=== PATIENT | female | born 1960 | race Two or more races ===

== ENCOUNTER 2020-03-22 12:26 | Outpatient (REF) | payer OTHER, SELFPAY ==
[2020-03-22 12:58] LABS: MANUAL DIFF FLAG NO
[2020-03-22 13:04] LABS: Basophils Percent Auto 0.5 % (0-2); Eosinophils Absolute Auto 0.2 X10*3/uL (0.0-0.4); Eosinophils Percent Auto 2.9 % (0-4); Hematocrit 34.9 % (37-47); Hemoglobin 10.7 g/dl (12.0-16.0); Imm Gran Abs Auto 0.03 X10*3/uL (0.00-0.03); Imm Gran Pct Auto 0.4 % (0.0-0.4); Lymphocytes Absolute Auto 2.2 X10*3/uL (1.2-4.9); Lymphocytes Percent Auto 25.9 % (20-40); Mean Corpuscular HGB Conc 30.7 g/dl (31.0-35.0); Mean Corpuscular Hemoglobin 24.6 pg (27.0-33.0); Mean Corpuscular Volume 80.2 fL (80-98); Mean Platelet Volume 10.3 fL (9.4-12.3); Monocytes Absolute Auto 0.5 X10*3/uL (0.1-1.2); Monocytes Percent Auto 5.4 % (2-11); Neutrophils Absolute Auto 5.4 X10*3/uL (2.0-8.3); Neutrophils Percent Auto 64.9 % (45-73); Platelet Count 362 X10*3/uL (160-400); Red Blood Count 4.35 X10*6/uL (4.20-5.50); Red Cell Distribution Width 14.4 % (11.0-16.0); White Blood Count 8.3 X10*3/uL (4.8-10.8)
[2020-03-22 14:03] LABS: Alanine Aminotransferase 12 U/L (0-31); Albumin Level 3.7 g/dL (3.5-5.0); Alkaline Phosphatase 115 U/L (39-117); Anion Gap 16 (12-20); Aspartate Amino Transferase 18 U/L (5-31); Blood Urea Nitrogen 52 mg/dL (9-16); Calcium 9.2 mg/dL (8.4-10.2); Carbon Dioxide 28 mmol/L (22-29); Chloride 97 mmol/L (96-108); Estimated Glomerular Filt Rate 28; Glucose Random 329 mg/dL (60-115); Sodium 136 mmol/L (135-145); Total Protein 7.1 g/dL (6.5-8.0)
[2020-03-22 14:12] LABS: Bilirubin Total 0.2 mg/dL (0.0-1.0)
[2020-03-22 14:14] LABS: Free T4 (Free Thyroxine) 0.94 ng/dL (0.71-1.85); Thyroid Stimulating Hormone 1.67 uIU/mL (0.32-4.0)
== END 2020-03-22 12:27 | disposition home or self-care (01) ==
LOC: HO.LAB 12:26
PROVIDERS: PCP Internal Medicine Medical Oncology; Visit Provider Internal Medicine Medical Oncology
DX: F32.9 Major depressive disorder, single episode, unspecified (principal); I51.9 Heart disease, unspecified; K21.9 Gastro-esophageal reflux disease without esophagitis; I10 Essential (primary) hypertension; R63.4 Abnormal weight loss
CPT/HCPCS: 36415; 80053; 84134; 84439; 84443; 85025

== ENCOUNTER 2020-04-17 08:49 | Outpatient (REF) | payer OTHER, SELFPAY ==
--- NOTE | 2020-04-17 08:54 | FL_ITS ---
EXAMINATION: XR UPPER GI AIR-CONTRAST SERIES CLINICAL INFORMATION: Abnormal weight loss, GERD. COMPARISON: None TECHNIQUE: Routine upper GI air-contrast study was performed. FINDINGS: Following oral administration of thick barium and effervescent granules, there is normal propagation of bolus from the oral cavity through the esophagus into the stomach without any evidence of obstruction, narrowing or stricture. On placing patient supine and prone lying, the course, caliber and peristalsis of the stomach, duodenal bulb and the sweep are normal. There is mild gastroesophageal reflux without hiatal hernia. The mucosal pattern of the stomach, duodenal bulb and the sweep is normal. There are median sternotomy sutures and anchors from previous 2 heart surgeries. FLUOROSCOPY TIME: 1.9 minutes DOSE AREA PRODUCT: 25.435 uGy-m2 (microgray-meter squared) FL/FL upper GI series IMPRESSION: Mild gastroesophageal reflux without hiatal hernia. No focal mass or ulceration seen in the esophagus, stomach or the duodenum.
== END 2020-04-17 08:50 | disposition home or self-care (01) ==
LOC: HO.XRAY 08:49
PROVIDERS: Visit Provider Internal Medicine Medical Oncology
DX: K21.9 Gastro-esophageal reflux disease without esophagitis (principal); R63.4 Abnormal weight loss
CPT/HCPCS: 74240

== ENCOUNTER → 2020-08-07 11:14 | Outpatient (BNVA) | payer OTHER, SELFPAY | PROVIDERS: PCP Internal Medicine Medical Oncology; Visit Provider Nurse Practitioner Gerontology | DX: E11.42 Type 2 diabetes mellitus with diabetic polyneuropathy (principal); E11.22 Type 2 diabetes mellitus with diabetic chronic kidney disease; I12.9 Hypertensive chronic kidney disease with stage 1 through stage 4 chronic kidney disease, or unspecified chronic kidney disease; N18.9 Chronic kidney disease, unspecified; Z79.4 Long term (current) use of insulin; E78.5 Hyperlipidemia, unspecified | CPT/HCPCS: 82947; 99212 ==

== ENCOUNTER → 2021-01-05 11:33 | Outpatient (BNVA) | payer OTHER, SELFPAY | PROVIDERS: PCP Internal Medicine Medical Oncology; Visit Provider Nurse Practitioner Gerontology | DX: E11.42 Type 2 diabetes mellitus with diabetic polyneuropathy (principal); E11.65 Type 2 diabetes mellitus with hyperglycemia; E11.22 Type 2 diabetes mellitus with diabetic chronic kidney disease; I12.9 Hypertensive chronic kidney disease with stage 1 through stage 4 chronic kidney disease, or unspecified chronic kidney disease; N18.9 Chronic kidney disease, unspecified; E78.00 Pure hypercholesterolemia, unspecified; Z79.4 Long term (current) use of insulin | CPT/HCPCS: 82947; 83036; 99212 ==

== ENCOUNTER → 2021-02-14 10:18 | Outpatient (BNVA) | payer OTHER, SELFPAY | PROVIDERS: PCP Internal Medicine Medical Oncology; Visit Provider Registered Nurse Diabetes Educator | DX: E11.42 Type 2 diabetes mellitus with diabetic polyneuropathy (principal); Z79.4 Long term (current) use of insulin | CPT/HCPCS: 99211 ==

== ENCOUNTER 2021-02-19 10:04 | Outpatient (REF) | payer OTHER, SELFPAY ==
[2021-02-19 11:34] LABS: Alanine Aminotransferase 27 U/L (0-31); Albumin Level 3.9 g/dL (3.5-5.0); Alkaline Phosphatase 139 U/L (39-117); Anion Gap 12 (12-20); Aspartate Amino Transferase 24 U/L (5-31); Bilirubin Total 0.3 mg/dL (0.0-1.0); Blood Urea Nitrogen 19 mg/dL (9-16); Calcium 9.3 mg/dL (8.4-10.2); Carbon Dioxide 25 mmol/L (22-29); Chloride 107 mmol/L (96-108); Cholesterol 152 mg/dL; Estimated Glomerular Filt Rate > 60; Glucose Fasting 126 mg/dL (60-99); HDL Cholesterol 40 mg/dL; LDL Cholesterol Calculated 69 mg/dl; Potassium 4.8 mmol/L (3.3-5.1); Sodium 139 mmol/L (135-145); Total Protein 7.1 g/dL (6.5-8.0); Triglycerides 216 mg/dL
[2021-02-19 12:58] LABS: Creatinine Urine 94.23 mg/dL
[2021-02-20 07:41] LABS: LDL Cholesterol Direct 70 mg/dL (<100)
== END 2021-02-19 10:05 | disposition home or self-care (01) ==
LOC: HO.LAB 10:04
PROVIDERS: Absent Provider Nurse Practitioner Gerontology; PCP Internal Medicine Medical Oncology; Visit Provider Internal Medicine Medical Oncology
DX: E11.65 Type 2 diabetes mellitus with hyperglycemia (principal); E78.5 Hyperlipidemia, unspecified; Z79.4 Long term (current) use of insulin
CPT/HCPCS: 36415; 80053; 80061; 82043; 83721

== ENCOUNTER 2021-04-18 09:20 | Outpatient (REF) | payer OTHER, SELFPAY ==
[2021-04-21 08:51] LABS: HPV mRNA E6/E7 rflx Not Detected (Not Detected)
== END 2021-04-18 09:21 | disposition home or self-care (01) ==
LOC: HO.LAB 09:20
PROVIDERS: PCP Internal Medicine Medical Oncology; Visit Provider Obstetrics & Gynecology
DX: Z01.411 Encounter for gynecological examination (general) (routine) with abnormal findings (principal); Z11.51 Encounter for screening for human papillomavirus (HPV); N84.1 Polyp of cervix uteri
CPT/HCPCS: 57500; 87624; 88142; 88305

== ENCOUNTER 2021-06-28 09:50 | Outpatient (REF) | payer OTHER, SELFPAY ==
--- NOTE | ~2021-06-28 | XR_ITS ---
EXAMINATION: XR SHOULDER, LEFT CLINICAL INFORMATION: Acute pain in the left shoulder COMPARISON: None TECHNIQUE: AP external rotation, Grashey, scapular Y, and axillary views of the left shoulder. FINDINGS: The bones and soft tissues are normal. No fracture. Glenohumeral and acromioclavicular alignment is anatomic with normal joint space. No abnormal soft tissue calcifications. XR/XR shoulder LT min 2V IMPRESSION: Unremarkable left shoulder.
[2021-06-28 10:11] LABS: MANUAL DIFF FLAG NO
[2021-06-28 10:22] LABS: Basophils Percent Auto 0.3 % (0-2); Eosinophils Absolute Auto 0.1 X10*3/uL (0.0-0.4); Eosinophils Percent Auto 1.3 % (0-4); Hematocrit 40.6 % (37.0-47.0); Hemoglobin 12.7 g/dl (12.0-16.0); Imm Gran Abs Auto 0.04 X10*3/uL (0.00-0.03); Imm Gran Pct Auto 0.4 % (0.0-0.4); Lymphocytes Absolute Auto 1.9 X10*3/uL (1.2-4.9); Lymphocytes Percent Auto 19.3 % (20-40); Mean Corpuscular HGB Conc 31.3 g/dl (31.0-35.0); Mean Corpuscular Volume 86.2 fL (80.0-98.0); Mean Platelet Volume 10.5 fL (9.4-12.3); Monocytes Absolute Auto 0.5 X10*3/uL (0.1-1.2); Monocytes Percent Auto 5.5 % (2-11); Neutrophils Absolute Auto 7.2 x10*3/uL (2.0-8.3); Neutrophils Percent Auto 73.2 % (45-73); Platelet Count 262 X10*3/uL (160-400); Red Blood Count 4.71 X10*6/uL (4.20-5.50); Red Cell Distribution Width 14.1 % (11.0-16.0); White Blood Count 9.9 X10*3/uL (4.8-10.8)
[2021-06-28 10:59] LABS: Alanine Aminotransferase 24 U/L (0-31); Albumin Level 3.9 g/dL (3.5-5.0); Alkaline Phosphatase 136 U/L (39-117); Anion Gap 13 (12-20); Aspartate Amino Transferase 23 U/L (5-31); Bilirubin Total 0.3 mg/dL (0.0-1.0); Blood Urea Nitrogen 27 mg/dL (9-16); Calcium 9.7 mg/dL (8.4-10.2); Carbon Dioxide 27 mmol/L (22-29); Chloride 106 mmol/L (96-108); Cholesterol 166 mg/dL; Estimated Glomerular Filt Rate 50; Glucose Fasting 122 mg/dL (60-99); HDL Cholesterol 45 mg/dL; LDL Cholesterol Calculated 86 mg/dl; Potassium 5.1 mmol/L (3.3-5.1); Sodium 141 mmol/L (135-145); Total Protein 7.2 g/dL (6.5-8.0); Triglycerides 176 mg/dL
== END 2021-06-28 09:51 | disposition home or self-care (01) ==
LOC: HO.LAB 09:50
PROVIDERS: PCP Internal Medicine Medical Oncology; Visit Provider Internal Medicine Medical Oncology
DX: M25.512 Pain in left shoulder (principal); E78.5 Hyperlipidemia, unspecified; E11.9 Type 2 diabetes mellitus without complications
CPT/HCPCS: 36415; 73030; 80053; 80061; 85025

== ENCOUNTER 2021-07-16 12:43 | Outpatient (REF) | payer OTHER, SELFPAY ==
[2021-07-16 12:59] LABS: MANUAL DIFF FLAG NO
[2021-07-16 13:39] LABS: Appearance Urine CLOUDY; Color Urine STRAW; Glucose Urine UA >=1000 MG/DL (NEG); Leukocyte Esterase Urine 1+ (NEG); Nitrite Urine NEG (NEG); PH 5.5 (5.0-8.0); Urine Blood 2+ (NEG); Urine Ketones NEG (NEG); Urine Protein 3+ MG/DL (NEG-TRACE)
[2021-07-16 13:40] LABS: Basophils Percent Auto 0.2 % (0-2); Eosinophils Absolute Auto 0.2 X10*3/uL (0.0-0.4); Hematocrit 39.6 % (37.0-47.0); Hemoglobin 12.2 g/dl (12.0-16.0); Imm Gran Abs Auto 0.03 X10*3/uL (0.00-0.03); Imm Gran Pct Auto 0.3 % (0.0-0.4); Lymphocytes Absolute Auto 1.5 X10*3/uL (1.2-4.9); Lymphocytes Percent Auto 16.1 % (20-40); Mean Corpuscular HGB Conc 30.8 g/dl (31.0-35.0); Mean Corpuscular Hemoglobin 26.5 pg (27.0-33.0); Mean Corpuscular Volume 85.9 fL (80.0-98.0); Mean Platelet Volume 11.1 fL (9.4-12.3); Monocytes Absolute Auto 0.5 X10*3/uL (0.1-1.2); Monocytes Percent Auto 4.7 % (2-11); Neutrophils Absolute Auto 7.3 x10*3/uL (2.0-8.3); Neutrophils Percent Auto 76.7 % (45-73); Platelet Count 262 X10*3/uL (160-400); Red Blood Count 4.61 X10*6/uL (4.20-5.50); Red Cell Distribution Width 14.1 % (11.0-16.0); White Blood Count 9.6 X10*3/uL (4.8-10.8)
[2021-07-16 13:52] LABS: Bacteria Urine 1+ /LPF; WBC Urine TNTC /HPF (0-4)
[2021-07-16 14:05] LABS: Creatinine Urine 68.94 mg/dL
[2021-07-16 14:07] LABS: Albumin Level 3.8 g/dL (3.5-5.0); Anion Gap 13 (12-20); Blood Urea Nitrogen 21 mg/dL (9-16); Calcium 9.4 mg/dL (8.4-10.2); Carbon Dioxide 28 mmol/L (22-29); Chloride 104 mmol/L (96-108); Estimated Glomerular Filt Rate 47; Magnesium 2.2 mg/dL (1.6-2.6); Potassium 4.7 mmol/L (3.3-5.1); Sodium 140 mmol/L (135-145)
[2021-07-16 14:30] LABS: Vitamin D 25-OH Total 12.3 ng/mL (>30)
[2021-07-16 14:41] LABS: Protein/Creatinine Ratio, Ur 5.43 (<0.2); Total Protein Urine Random 374 mg/dL (<12)
[2021-07-17 13:27] LABS: Calcium (PTHI) 8.9 mg/dL (8.6-10.4); PTHI 159 pg/mL (16-77)
== END 2021-07-16 12:44 | disposition home or self-care (01) ==
LOC: HO.LAB 12:43
PROVIDERS: PCP Internal Medicine Medical Oncology; Visit Provider Internal Medicine Nephrology
DX: E11.22 Type 2 diabetes mellitus with diabetic chronic kidney disease (principal); N18.31 Chronic kidney disease, stage 3a; N25.0 Renal osteodystrophy
CPT/HCPCS: 36415; 80051; 81001; 82040; 82043; 82306; 82310; 82565; 83735; 83970; 84100; 84156; 84520; 85025; 87086; 87088; 87186

== ENCOUNTER 2021-10-04 09:25 | Outpatient (REF) | payer OTHER, SELFPAY ==
--- NOTE | ~2021-10-04 | XR_ITS ---
EXAMINATION: XR LUMBOSACRAL SPINE CLINICAL INFORMATION: Low back pain. COMPARISON: 05/31/2018 lumbar spine radiographs. TECHNIQUE: Three views of the lumbosacral spine. FINDINGS: There is normal lumbar lordosis and spinal alignment. Moderate degenerative disc disease is seen at L4-L5 with disc space narrowing and moderate marginal osteophyte formation on the left. There is no acute fracture. The soft tissues are unremarkable. XR/XR lumbar spine 2-3V IMPRESSION: L4-L5 moderate degenerative disc disease without significant change. No acute abnormality.
[2021-10-04 09:42] LABS: MANUAL DIFF FLAG NO
[2021-10-04 10:19] LABS: Basophils Percent Auto 0.3 % (0-2); Eosinophils Absolute Auto 0.2 X10*3/uL (0.0-0.4); Eosinophils Percent Auto 2.5 % (0-4); Hematocrit 40.8 % (37.0-47.0); Hemoglobin 12.8 g/dl (12.0-16.0); Imm Gran Abs Auto 0.04 X10*3/uL (0.00-0.03); Imm Gran Pct Auto 0.4 % (0.0-0.4); Lymphocytes Absolute Auto 2.2 X10*3/uL (1.2-4.9); Lymphocytes Percent Auto 24.3 % (20-40); Mean Corpuscular HGB Conc 31.4 g/dl (31.0-35.0); Mean Corpuscular Hemoglobin 26.7 pg (27.0-33.0); Mean Corpuscular Volume 85.2 fL (80.0-98.0); Mean Platelet Volume 10.2 fL (9.4-12.3); Monocytes Absolute Auto 0.5 X10*3/uL (0.1-1.2); Monocytes Percent Auto 5.7 % (2-11); Neutrophils Absolute Auto 5.9 x10*3/uL (2.0-8.3); Neutrophils Percent Auto 66.8 % (45-73); Platelet Count 266 X10*3/uL (160-400); Red Blood Count 4.79 X10*6/uL (4.20-5.50); Red Cell Distribution Width 13.5 % (11.0-16.0); White Blood Count 8.9 X10*3/uL (4.8-10.8)
[2021-10-04 10:40] LABS: Alanine Aminotransferase 24 U/L (0-31); Albumin Level 3.7 g/dL (3.5-5.0); Alkaline Phosphatase 182 U/L (39-117); Anion Gap 11 (12-20); Aspartate Amino Transferase 19 U/L (5-31); Bilirubin Total 0.3 mg/dL (0.0-1.0); Blood Urea Nitrogen 31 mg/dL (9-16); Calcium 9.1 mg/dL (8.4-10.2); Carbon Dioxide 26 mmol/L (22-29); Chloride 103 mmol/L (96-108); Cholesterol 171 mg/dL; Estimated Glomerular Filt Rate 48; Glucose Random 230 mg/dL (60-115); HDL Cholesterol 43 mg/dL; LDL Cholesterol Calculated 84 mg/dl; Potassium 4.6 mmol/L (3.3-5.1); Sodium 135 mmol/L (135-145); Total Protein 7.2 g/dL (6.5-8.0); Triglycerides 222 mg/dL
== END 2021-10-04 09:26 | disposition home or self-care (01) ==
LOC: HO.LAB 09:25
PROVIDERS: PCP Internal Medicine Medical Oncology; Visit Provider Internal Medicine Medical Oncology
DX: M54.50 Low back pain, unspecified (principal); E78.5 Hyperlipidemia, unspecified; I21.11 ST elevation (STEMI) myocardial infarction involving right coronary artery; I10 Essential (primary) hypertension; K21.9 Gastro-esophageal reflux disease without esophagitis
CPT/HCPCS: 36415; 72100; 80053; 80061; 85025

== ENCOUNTER 2021-11-19 10:12 | Outpatient (REF) | payer OTHER, SELFPAY ==
[2021-11-19 10:37] LABS: MANUAL DIFF FLAG NO
[2021-11-19 11:42] LABS: Basophils Percent Auto 0.4 % (0-2); Eosinophils Absolute Auto 0.3 X10*3/uL (0.0-0.4); Eosinophils Percent Auto 2.6 % (0-4); Hematocrit 39.3 % (37.0-47.0); Hemoglobin 12.5 g/dl (12.0-16.0); Imm Gran Abs Auto 0.04 X10*3/uL (0.00-0.03); Imm Gran Pct Auto 0.4 % (0.0-0.4); Lymphocytes Absolute Auto 2.3 X10*3/uL (1.2-4.9); Lymphocytes Percent Auto 23.8 % (20-40); Mean Corpuscular HGB Conc 31.8 g/dl (31.0-35.0); Mean Corpuscular Hemoglobin 26.9 pg (27.0-33.0); Mean Corpuscular Volume 84.7 fL (80.0-98.0); Mean Platelet Volume 10.9 fL (9.4-12.3); Monocytes Absolute Auto 0.6 X10*3/uL (0.1-1.2); Monocytes Percent Auto 6.2 % (2-11); Neutrophils Absolute Auto 6.3 x10*3/uL (2.0-8.3); Neutrophils Percent Auto 66.6 % (45-73); Platelet Count 276 X10*3/uL (160-400); Red Blood Count 4.64 X10*6/uL (4.20-5.50); Red Cell Distribution Width 13.7 % (11.0-16.0); White Blood Count 9.5 X10*3/uL (4.8-10.8)
[2021-11-19 11:59] LABS: Anion Gap 15 (12-20); Blood Urea Nitrogen 28 mg/dL (9-16); Carbon Dioxide 20 mmol/L (22-29); Chloride 108 mmol/L (96-108); Estimated Glomerular Filt Rate 55; Potassium 4.4 mmol/L (3.3-5.1); Sodium 139 mmol/L (135-145)
[2021-11-19 12:10] LABS: Appearance Urine CLEAR; Color Urine STRAW; Glucose Urine UA >=1000 MG/DL (NEG); Leukocyte Esterase Urine NEG (NEG); Nitrite Urine NEG (NEG); PH 5.5 (5.0-8.0); Urine Blood 1+ (NEG); Urine Ketones NEG (NEG); Urine Protein 2+ MG/DL (NEG-TRACE)
[2021-11-19 12:11] LABS: HBc Num1 0.03 S/CO (0.00-0.79); HBsAGNum1 0.22 S/CO (0.00-0.99); Hepatitis B Core Antibody Nonreactive (Nonreactive); Hepatitis B Surface Antigen Negative (Negative); ~HepC Num1 0.25 S/CO (0.00-0.79); ~Hepatitis B Surface Antibody NONREACTIVE (Nonreactive); ~Hepatitis C Antibody Nonreactive (Nonreactive)
[2021-11-19 12:42] LABS: Protein/Creatinine Ratio, Ur 4.33 (<0.2); Total Protein Urine Random 186 mg/dL (<12)
[2021-11-19 13:11] LABS: Bacteria Urine TRACE /LPF; Squamous Epithelial Cell Urine TRACE /LPF
[2021-11-19 13:12] LABS: RBC Urine 0-2 /HPF (0); WBC Urine 0 /HPF (0-4)
[2021-11-20 13:51] LABS: Complement C3 134 mg/dL (83-193)
[2021-11-22 16:01] LABS: Anti Nuclear Antibody Screen POSITIVE (NEGATIVE); Anti Nuclear Antibody Titer 1:40 titer
[2021-11-22 22:46] LABS: Prot Elec - Albumin 3.8 g/dL (3.8-4.8); Prot Elec - Alpha1 0.3 g/dL (0.2-0.3); Prot Elec - Alpha2 0.9 g/dL (0.5-0.9); Prot Elec - Beta 1 0.5 g/dL (0.4-0.6); Prot Elec - Beta 2 0.5 g/dL (0.2-0.5); Prot Elec - Gamma 1.3 g/dL (0.8-1.7); Prot Elec - Total Protein 7.3 g/dL (6.1-8.1)
[2021-11-26 15:06] LABS: Kappa, Serum 336 mg/dL (176-443); Kappa/Lambda Ratio, Serum 1.37 (1.29-2.55); Lambda, Serum 246 mg/dL (91-240)
== END 2021-11-19 10:13 | disposition home or self-care (01) ==
LOC: HO.LAB 10:12
PROVIDERS: PCP Internal Medicine Medical Oncology; Visit Provider Internal Medicine Nephrology
DX: I12.9 Hypertensive chronic kidney disease with stage 1 through stage 4 chronic kidney disease, or unspecified chronic kidney disease (principal); N18.31 Chronic kidney disease, stage 3a; E11.22 Type 2 diabetes mellitus with diabetic chronic kidney disease; N25.0 Renal osteodystrophy; R80.1 Persistent proteinuria, unspecified
CPT/HCPCS: 36415; 80051; 81001; 82043; 82310; 82565; 83883; 84156; 84165; 84520; 85025; 86038; 86039; 86160; 86704; 86706; 86803; 87340

== ENCOUNTER 2021-11-29 13:44 | Outpatient (REF) | payer OTHER, SELFPAY ==
--- NOTE | ~2021-11-29 | MM_ITS ---
EXAMINATION: BONE DENSITOMETRY CLINICAL INDICATION: Osteoporosis. COMPARISON: None (current study represents initial baseline exam). TECHNIQUE: Using a [employer] DXA System (software version: 13.1) manufactured by [employer], dual-energy x-ray absorptiometry was performed of the lumbar spine and left hip. The images are of good technical quality. Summary results are attached. FINDINGS: AP SPINE L1-L4: BMD 0.999 g/cm2, Z-score -0.9, T-score -1.5, osteopenia. LEFT FEMUR, NECK: BMD 0.588 g/cm2, Z-score -2.4, T-score -3.2, osteoporosis. LEFT FEMUR, TOTAL: BMD 0.750 g/cm2, Z-score -1.5, T-score -2.0, osteopenia. IDENTIFIED RISK FACTORS: Menopause, family history (parent hip fracture), secondary osteoporosis. HISTORY OF FRACTURE: None listed. MEDICATIONS: Vitamin D. MM/XR DEXA axial skeleton IMPRESSION: 1. DIAGNOSIS: Osteoporosis based on the lowest T-score value of -3.2 in the femoral neck applying World Health Organization criteria. 2. 10-YEAR FRACTURE RISK PREDICTION, FRAX: According to the guidelines, FRAX calculation should only be performed on patients in the osteopenia bone density category. Therefore, FRAX was not performed on this patient. 3. Treatment Recommendations: NOF guidelines recommend consideration for treatment in postmenopausal women and men age 50 and older presenting with the following: -A hip or vertebral (clinical or morphometric) fracture. -T-score less than or equal to -2.5 at the femoral neck or spine after appropriate evaluation to exclude secondary causes. -Low bone mass at the hip or spine and a 10-year fracture probability by FRAX of greater than or equal to 3% for hip fracture or greater than or equal to 20% for major osteoporotic fracture based on the [place] adapted WHO algorithm. 4. Other Recommendations: All treatment decisions require clinical judgment and consideration of individual patient factors, including patient preferences, comorbidities, previous drug use, risk factors not captured in the FRAX model (e.g. frailty, falls, vitamin D deficiency, increased bone turnover, interval significant decline in bone density) and possible under or overestimation of fracture risk by FRAX. Additional medical evaluation for secondary cause of low bone mineral density may be appropriate. FUTURE SCAN RECOMMENDATION: People with diagnosed cases of osteoporosis or at high risk for fracture should have regular bone mineral density tests. For patients eligible for Medicare, routine testing is allowed once every 2 years. The testing frequency can be increased to one year for patients who have rapidly progressing disease, those who are receiving or discontinuing medical therapy to restore bone mass, or have additional risk factors.
--- NOTE | ~2021-11-29 | MM_ITS ---
EXAMINATION: MM SCREENING DIGITAL BREAST TOMOSYNTHESIS, BILATERAL CLINICAL INFORMATION: Screening. Asymptomatic. The lifetime risk of breast cancer based on the Tyrer-Cuzick Model is 13%. COMPARISON: Mammography: 10/09/2018, 09/20/2017, 04/17/2016 TECHNIQUE: Digital breast tomosynthesis is performed in both the craniocaudal and mediolateral oblique views along with computer-aided detection (CAD). Synthesized 2D images are generated from the tomosynthesis. Additional left MLO view is provided. FINDINGS: The breasts are heterogeneously dense, which may obscure small masses (ACR BI-RADS breast composition Category c). Parenchymal pattern is similar to prior studies. There is no developing density or architectural abnormality. There are scattered bilateral benign round, rim, and vascular calcifications again noted. Pacemaker generator overlies and partly obscures posterior left axilla on MLO view. MM/MM tomosynthesis screening BI IMPRESSION: No mammographic evidence of malignancy. ASSESSMENT: BI-RADS 2: Benign RECOMMENDATION: Routine annual mammography screening. This patient's information was entered into a reminder system with a target due date for their next mammogram.
== END 2021-11-29 13:45 | disposition home or self-care (01) ==
LOC: HO.MAMMO 13:44
PROVIDERS: PCP Internal Medicine Medical Oncology; Visit Provider Internal Medicine Medical Oncology
DX: Z12.31 Encounter for screening mammogram for malignant neoplasm of breast (principal); Z13.820 Encounter for screening for osteoporosis; Z78.0 Asymptomatic menopausal state
CPT/HCPCS: 77063; 77067; 77080

== ENCOUNTER → 2022-05-24 10:31 | Outpatient (BNVA) | payer OTHER, SELFPAY | PROVIDERS: PCP Internal Medicine Medical Oncology; Visit Provider Internal Medicine Endocrinology, Diabetes & Metabolism | DX: E11.42 Type 2 diabetes mellitus with diabetic polyneuropathy (principal); E11.22 Type 2 diabetes mellitus with diabetic chronic kidney disease; I12.9 Hypertensive chronic kidney disease with stage 1 through stage 4 chronic kidney disease, or unspecified chronic kidney disease; N18.9 Chronic kidney disease, unspecified; Z79.4 Long term (current) use of insulin | CPT/HCPCS: 82947; 83036; 99212 ==

== ENCOUNTER 2022-12-10 10:01 | Outpatient (AMB) | payer OTHER, SELFPAY ==
--- NOTE | 2022-12-10 10:10 | MHC.OFFVIS ---
Intake Vital Signs 12/10/22 10:11 Height 5 ft 2 in Weight 167 lb 8.821 oz BMI 30.6 BP 112/58 L Blood Pressure Location Lt brachial Position Sitting Pulse 65 Pulse Source Pulse Oximeter Intake Visit Reasons: DM Intake Note: Patient present today to follow up on Type 2 Diabetes Mellitus. Last Diabetic Eye exam: 4 years ago Last Podiatry Visit: None Random Glucose: 203 mg/dl HgA1C: DUE Legal Consultant Required: No Accompanied by: Self / Same As Patient Allergies iodine [IODINE] Allergy (Intermediate, Verified 12/10/22 10:15) PT UNSURE latex [LATEX] Allergy (Intermediate, Verified 12/10/22 10:15) RASH ketorolac Allergy (Unknown, Verified 12/10/22 10:15) Unknown oxycodone Allergy (Unknown, Verified 12/10/22 10:15) Unknown From TORADOL Allergy (Unknown, Uncoded 05/24/22 10:39) STOMACH UPSET Medication List - Last Reviewed 12/10/22 by Krystyna nAdrade albuterol sulfate 90 mcg/actuation inhalation alcohol swabs 0 pad topical aspirin 1 tab PO DAILY atorvastatin 80 mg PO DAILY blood sugar diagnostic (FreeStyle Lite Strips) As directed 4 times a day blood-glucose meter (FreeStyle Lite Meter kit) As directed clopidogrel 75 mg PO DAILY dapagliflozin propanediol (Farxiga) 10 mg PO DAILY dulaglutide (Trulicity) 1.5 mg (0.5 mL) subcut QWEEK 28 days flash glucose sensor (FreeStyle Kusum 14 Day Sensor kit) As directed gabapentin 200 mg (2 x 100 mg) PO BEDTIME insulin glargine (Lantus Solostar U-100 Insulin) 24 units (0.24 mL) subcut QPM insulin lispro (Humalog KwikPen (U-100) Insulin) 5 units, + 2 units for bg over 200, + 4 units for bg over 300 subcut 3 times a day; lancets (FreeStyle Lancets) As directed 4 times a day loratadine (Allergy Relief (loratadine)) 10 mg PO DAILY metoprolol succinate ER 50 mg PO DAILY mirtazapine 30 mg PO BEDTIME pen needle, diabetic (Unifine Pentips Plus) As directed spironolactone 25 mg PO DAILY torsemide 20 mg PO ONCE PRN HPI HPI Comments History of Present Illness Details Patient is a 61-year-old female with DM type 2 diagnosed over 20 years ago, who presents for management of diabetes. Past medical history: Diabetes type 2, hypertension hyperlipidemia, fibromyalgia Micro and macrovascular complications: + retinopathy, +nephropathy, +CAD, Diabetes medications: Lantus 24 units, Humalog 5 units, + 2 units >150mg/dl, +4 units >200. +6 units >300. Trulicity 1.5mg. She is intolerant of and not a candidate for metformin and is an inappropriate candidate for pioglitazone due to osteoporosis. Also takes Farxiga 10 mg QD Symptoms reported: occasional numbness, in legs Hypoglycemia: Infrequent CGM: In the past 14 days CGM is active 93%. Average blood glucose 172. Glucose management indicator 7.4%. Glucose variability 28.3%. 59% of blood glucose within target range of 70-180. 34% high from 181-250. 6% very high over 250.. Median blood glucose is either just below or above 180 throughout the day. There is a slight postprandial elevation after breakfast Very infrequent lows Exercise: walk 15 - 30 minutes a day. Eye exam: needs to make appt . Has appt in Jan 2023 Laboratory Tests 06/23/19 03/22/20 12:40 12:45 Creatinine 1.86 H Estimated GFR 28 Hemoglobin A1c 14.0 [facility] Medical History (Updated 07/23/21 @ 09:56 by HENNA Flores) CAD (coronary artery disease) Diabetes History of HI (myocardial infarction) (~04/2013) HLD (hyperlipidemia) HTN (hypertension) Pacemaker Type 2 diabetes mellitus with chronic kidney disease Type 2 diabetes mellitus with diabetic polyneuropathy Surgical History Hx of appendectomy Hx of cardiac cath (~11/2019) Hx of cataract surgery Hx of tonsillectomy S/P CABG (coronary artery bypass graft) Family History Father Diabetes Emphysema/COPD Mother CVD (cardiovascular disease) HTN (hypertension) Brother Diabetes Daughter Diabetes Social History Household Members: Family Household Members Other:: grandson Alcohol intake: never Patient Tobacco Use Status: Never used Tobacco Female Reproductive History Menstrual Age of Menarche: 14 Physical Exam Vital Signs: Last Vital Signs Pulse 65 12/10/22 10:11 BP 112/58 L 12/10/22 10:11 BMI result Body Mass Index 30.6 Absence of Cushingoid features. Absence of acromegalic features. Neck exam reveals nl size thyroid about 15 gms. No thyroid nodules palpable. No carotid bruits present. Lungs CTA. Heart S1 S2, Reg R/R. No M/R/ G. Skin exam reveals absence of vitiligo or acanthosis nigricans. Abdominal exam reveals Soft NT/ND with NA BS. No organomegaly present. Neck Other: . Extrem Other: Visual exam of foot performed. No ulcerations or open lesions. No onchomycosis, no callouses.Pulses 2 + distally Sensation intact to monofilament exam. Vibratory sensation sensed is Decreased with 128 Hz tuning fork Results AMB Hemoglobin A1c AMB Hemoglobin A1c 7.7 % Last Edit by Krystyna Andrade on 12/10/22 10:35 Results Reviewed Results Reviewed: 12/10/22 10:21 Glucose, Whole Blood Routine Laboratory Last Values Glucose (Clinic) 203 mg/dL (60-115) H 12/10/22 10:21 Hgb A1c (Clinic) 7.7 % (4.0-6.0) H 12/10/22 10:25 Assessment & Plan Assessment & Plan (1) Type 2 diabetes mellitus with diabetic polyneuropathy: Code(s): E11.42 - Type 2 diabetes mellitus with diabetic polyneuropathy Qualifiers: Diabetes mellitus group home insulin use: with watermelon harvesting supervisor use Qualified Code(s): E11.42 - Type 2 diabetes mellitus with diabetic polyneuropathy; Z79.4 - terminal operations supervisor (current) use of insulin Plan: This is a 62-year-old female with history of type 2 diabetes being treated with Trulicity, Farxiga and basal- bolus insulin with poor glycemic control and known microvascular complications namely neuropathy and CKD. The plan is switch to Trulicity to Ozempic 1 mg Q weekly. Went over side effects of Ozempic including but not limited to nausea, vomiting risk of pancreatitis. Can titrate dose as tolerated. Told patient to report any hypoglycemia for adjustment of insulin regimen Ozempic 0.5 mg samples given to patient lot number [id number] expiration date 05/14/2024 Orders: Orders AMB Hemoglobin A1c Today E11.42 - Type 2 diabetes mellitus with diabetic polyneuropathy Medications: New semaglutide (Ozempic) 1 mg (0.75 mL) subcut QWEEK 3 mL 5RF semaglutide (Ozempic) 1 mg (0.75 mL) subcut QWEEK 3 mL 5RF Discontinued dulaglutide (Trulicity) Discontinued Reason: Doctor's Order 1.5 mg (0.5 mL) subcut QWEEK 28 days 2 mL 4RF E11.42 - Type 2 diabetes mellitus with diabetic polyneuropathy, Z79.4 - terminal operations supervisor (current) use of insulin Coding Level of Care Code Est Pt Level 4 (33009) Diagnoses Type 2 diabetes mellitus with diabetic polyneuropathy E11.42; Z79.4 Diabetes mellitus watermelon harvesting supervisor insulin use: with group home use
[2022-12-10 10:11] VITALS: BP 112/58; PULSE 65; BMI 30.6
[2022-12-10 10:26] LABS: Glucose, Whole Blood 203 mg/dL (60-115)
--- NOTE | 2022-12-10 11:03 | AM.OFFVISNUR ---
Intake Vital Signs 12/10/22 10:11 Height 5 ft 2 in Weight 167 lb 8.821 oz BMI 30.6 BP 112/58 L Blood Pressure Location Lt brachial Position Sitting Pulse 65 Pulse Source Pulse Oximeter Intake Visit Reasons: DM Allergies iodine [IODINE] Allergy (Intermediate, Verified 12/10/22 10:15) PT UNSURE latex [LATEX] Allergy (Intermediate, Verified 12/10/22 10:15) RASH ketorolac Allergy (Unknown, Verified 12/10/22 10:15) Unknown oxycodone Allergy (Unknown, Verified 12/10/22 10:15) Unknown From TORADOL Allergy (Unknown, Uncoded 05/24/22 10:39) STOMACH UPSET Medication List - Last Reviewed 12/10/22 by Krystyna Anrdade albuterol sulfate 90 mcg/actuation inhalation alcohol swabs 0 pad topical aspirin 1 tab PO DAILY atorvastatin 80 mg PO DAILY blood sugar diagnostic (FreeStyle Lite Strips) As directed 4 times a day blood-glucose meter (FreeStyle Lite Meter kit) As directed clopidogrel 75 mg PO DAILY dapagliflozin propanediol (Farxiga) 10 mg PO DAILY dulaglutide (Trulicity) 1.5 mg (0.5 mL) subcut QWEEK 28 days flash glucose sensor (FreeStyle Kusum 14 Day Sensor kit) As directed gabapentin 200 mg (2 x 100 mg) PO BEDTIME insulin glargine (Lantus Solostar U-100 Insulin) 24 units (0.24 mL) subcut QPM insulin lispro (Humalog KwikPen (U-100) Insulin) 5 units, + 2 units for bg over 200, + 4 units for bg over 300 subcut 3 times a day; lancets (FreeStyle Lancets) As directed 4 times a day loratadine (Allergy Relief (loratadine)) 10 mg PO DAILY metoprolol succinate ER 50 mg PO DAILY mirtazapine 30 mg PO BEDTIME pen needle, diabetic (Unifine Pentips Plus) As directed spironolactone 25 mg PO DAILY torsemide 20 mg PO ONCE PRN Nursing Note I met with the patient and discussed the importance of hand-washing, cleansing the skin, and proper disposal of sharps. Patient denied watching a demonstration, however, she verbally demonstrated understanding. She agrees to call with any questions or concerns. Results AMB Hemoglobin A1c AMB Hemoglobin A1c 7.7 % Last Edit by Krystyna Andrade on 12/10/22 10:35 Coding Diagnoses Type 2 diabetes mellitus with diabetic polyneuropathy E11.42; Z79.4 Diabetes mellitus residential insulin use: with watermelon harvesting supervisor use Assessment & Plan Assessment & Plan (1) Type 2 diabetes mellitus with diabetic polyneuropathy: Code(s): E11.42 - Type 2 diabetes mellitus with diabetic polyneuropathy Qualifiers: Diabetes mellitus residential insulin use: with residential use Qualified Code(s): E11.42 - Type 2 diabetes mellitus with diabetic polyneuropathy; Z79.4 - termite control servicer (current) use of insulin Orders: Orders AMB Hemoglobin A1c Today E11.42 - Type 2 diabetes mellitus with diabetic polyneuropathy Medications: New semaglutide (Ozempic) 1 mg (0.75 mL) subcut QWEEK 3 mL 5RF semaglutide (Ozempic) 1 mg (0.75 mL) subcut QWEEK 3 mL 5RF Discontinued dulaglutide (Trulicity) Discontinued Reason: Doctor's Order 1.5 mg (0.5 mL) subcut QWEEK 28 days 2 mL 4RF E11.42 - Type 2 diabetes mellitus with diabetic polyneuropathy, Z79.4 - termite control servicer (current) use of insulin
== END 2022-12-10 11:09 | disposition home or self-care (01) ==
PROVIDERS: PCP Internal Medicine Medical Oncology; Visit Provider Internal Medicine Endocrinology, Diabetes & Metabolism
DX: E11.42 Type 2 diabetes mellitus with diabetic polyneuropathy (principal); Z79.4 Long term (current) use of insulin
CPT/HCPCS: 99214

== ENCOUNTER → 2022-12-10 10:01 | Outpatient (BNVA) | payer OTHER, SELFPAY | PROVIDERS: PCP Internal Medicine Medical Oncology; Visit Provider Internal Medicine Endocrinology, Diabetes & Metabolism | DX: E11.42 Type 2 diabetes mellitus with diabetic polyneuropathy (principal); E11.22 Type 2 diabetes mellitus with diabetic chronic kidney disease; N18.9 Chronic kidney disease, unspecified; Z79.4 Long term (current) use of insulin | CPT/HCPCS: 82947; 83036; 99212 ==

== ENCOUNTER → 2023-03-19 11:30 | Outpatient (BNV) | payer OTHER, SELFPAY | PROVIDERS: PCP Internal Medicine Medical Oncology; Visit Provider Radiology Diagnostic Radiology | DX: Z12.31 Encounter for screening mammogram for malignant neoplasm of breast (principal) | CPT/HCPCS: 77063; 77067 ==

== ENCOUNTER 2023-03-19 12:21 | Outpatient (REF) | payer OTHER, SELFPAY ==
--- NOTE | ~2023-03-19 | MM_ITS ---
EXAMINATION: MM SCREENING DIGITAL BREAST TOMOSYNTHESIS, BILATERAL CLINICAL INFORMATION: Screening. Asymptomatic. COMPARISON: Mammography: This study is compared with prior exams dating back to 2017. TECHNIQUE: Digital breast tomosynthesis is performed in both the craniocaudal and mediolateral oblique views along with computer-aided detection (CAD). Synthesized 2D images are generated from the tomosynthesis. FINDINGS: The breasts are heterogeneously dense, which may obscure small masses (ACR BI-RADS breast composition Category c). There is a pacemaker in the superior aspect of the left breast. There are no significant masses, abnormal calcifications, or other abnormalities. There are numerous, bilateral, unchanged, benign calcifications in each breast. MM/MM tomosynthesis screening BI IMPRESSION: No mammographic evidence of malignancy. ASSESSMENT: BI-RADS BI-RADS 2 - Benign Findings RECOMMENDATION: Routine annual mammography screening. 1 year F/U This examination should not preclude the clinical evaluation of a suspicious palpable abnormality. This patient's information was entered into a reminder system with a target due date for their next mammogram.
== END 2023-03-19 12:22 | disposition home or self-care (01) ==
LOC: HO.MAMMO 12:21
PROVIDERS: PCP Internal Medicine Medical Oncology; Visit Provider Internal Medicine Medical Oncology
DX: Z12.31 Encounter for screening mammogram for malignant neoplasm of breast (principal)
CPT/HCPCS: 77063; 77067

== ENCOUNTER 2023-07-10 13:27 | Emergency (ER) | payer OTHER, SELFPAY ==
[2023-07-10 14:10] VITALS: BP 126/47; PULSE 80; RESP 16; TEMP 36.7; O2SAT 98; BMI 30.6
--- NOTE | 2023-07-10 14:10 | ED_ITS ---
HPI - General Adult General Chief complaint: General Medical Stated complaint: ? Rash L Side of Face w/Ear Pain Time Seen by Provider: 07/10/23 14:22 Source: patient Mode of arrival: ambulatory Limitations: no limitations History of Present Illness HPI narrative: 62-year-old female with pmhx significant for GERD, insomnia, depression, fibromyalgia, obesity, hepatic steatosis, asthma, T2DM, CKD, diabetic neuropath y, HTN, HDL, CAD, NSTEMI presents to the ED today for evaluation of rash to left side of her face x2 days. Admits to severe facial pain prior to onset of rash. Admits to having chicken pox as a child. She has not received shingles vaccine yet. Denies new detergents, lotions, soaps. Denies recent medication changes. Denies recent antibiotics. Denies recent tick or insect bites. Denies known sick contacts. Denies fever, chills, sore throat, ear or eye pain, drainage from ear, vision changes, nausea, vomiting. Related Data Home Medications Medication Instructions Recorded Confirmed albuterol sulfate 90 mcg/actuation inhalation 08/07/20 05/24/22 aerosol inhaler aspirin 81 mg chewable tablet 1 tab PO DAILY 08/07/20 05/24/22 atorvastatin 80 mg tablet 80 mg PO DAILY 08/07/20 05/24/22 clopidogrel 75 mg tablet 75 mg PO DAILY 08/07/20 05/24/22 metoprolol succinate 50 mg 50 mg PO DAILY 08/07/20 05/24/22 tablet,extended release 24 hr mirtazapine 30 mg tablet 30 mg PO BEDTIME 08/07/20 05/24/22 spironolactone 25 mg tablet 25 mg PO DAILY 08/07/20 05/24/22 torsemide 20 mg tablet 20 mg PO ONCE PRN 01/05/21 05/24/22 alcohol swabs 0 pad topical diabetes mellitus 05/24/22 05/24/22 blood sugar diagnostic (FreeStyle #10 ea 05/24/22 05/24/22 Lite Strips) blood-glucose meter (FreeStyle #1 ea 05/24/22 05/24/22 Lite Meter kit) flash glucose sensor (FreeStyle #1 ea 05/24/22 05/24/22 Kusum 14 Day Sensor kit) lancets 28 gauge (FreeStyle #100 ea 05/24/22 05/24/22 Lancets) loratadine 10 mg tablet (Allergy 10 mg PO DAILY 05/24/22 05/24/22 Relief (loratadine)) pen needle, diabetic 32 gauge x #50 ea 05/24/22 05/24/22 (Unifine Pentips Plus) dapagliflozin propanediol 10 mg 10 mg PO DAILY 12/10/22 tablet (Farxiga) Previous Rx's Medication Instructions Recorded insulin lispro 100 unit/mL See Rx Instructions subcut TID #15 01/29/21 subcutaneous pen (Humalog KwikPen mL (U-100) Insulin) insulin glargine 100 unit/mL (3 24 unit (0.24 mL) subcut QPM #15 mL 02/28/21 mL) subcutaneous pen (Lantus Solostar U-100 Insulin) gabapentin 100 mg capsule 200 mg (2 x 100 mg) PO BEDTIME #60 05/23/21 caps semaglutide 1 mg/dose (4 mg/3 mL) 1 mg (0.75 mL) subcut QWEEK #3 mL 12/10/22 subcutaneous pen injector (Ozempic) prednisone 20 mg tablet 40 mg (2 x 20 mg) PO DAILY 5 days 07/10/23 #10 tabs valacyclovir 1 gram tablet 1,000 mg PO TID 7 days #21 tabs 07/10/23 (Valtrex) Allergies Allergy/AdvReac Type Severity Reaction Status Date / Time iodine [IODINE] Allergy Intermediate PT UNSURE Verified 07/10/23 14:10 latex [LATEX] Allergy Intermediate RASH Verified 07/10/23 14:10 ketorolac Allergy Unknown Unknown Verified 07/10/23 14:10 oxycodone Allergy Unknown Unknown Verified 07/10/23 14:10 From TORADOL Allergy Unknown STOMACH Uncoded 05/24/22 10:39 UPSET Review of Systems Review of Systems: Constitutional: No fever, chills, fatigue, night sweats, weight changes ENT/Mouth: No ear pain, hearing loss, nasal congestion, sinus pain, rhinorrhea, sore throat Eyes: No eye pain, swelling, redness, vision changes, discharge Cardio: No chest pain, palpitations, CRESPO, orthopnea, peripheral edema Pulm: No SOB, cough, sputum, wheezing, dyspnea, hemoptysis GI: No nausea, vomiting, hematemesis, abdominal pain, diarrhea, constipation, hematochezia, melena : No irregular bleeding, dysuria, frequency, urgency, hesitancy, hematuria, flank pain, urinary flow changes, urinary incontinence or retention MSK: No back pain, neck pain, joint pain, myalgias Skin: No lesions, +rash to left face Neuro: No weakness, numbness, paresthesias, LOC, dizziness, headache Psych: No anxiety/panic, depression, SI/HI, AH/VH All other systems reviewed and are negative. [facility] Past Medical History Attestation statement: The following information was validated with the patient. Source: old records reviewed and nursing notes reviewed 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 Diabetes HLD (hyperlipidemia) HTN (hypertension) History of [place] (myocardial infarction) (~04/2013) CAD (coronary artery disease) Surgical History S/P CABG (coronary artery bypass graft) Hx of cataract surgery Hx of tonsillectomy Hx of appendectomy Hx of cardiac cath (~11/2019) Family History Family History Father Diabetes Emphysema/COPD Mother CVD (cardiovascular disease) HTN (hypertension) Brother Diabetes Daughter Diabetes Social History Social History Household Members: Family Household Members Other:: grandson Alcohol intake: never Patient Tobacco Use Status: Never used Tobacco Advance Directives: No Physical Exam ED Vital Signs: Vital Signs - 24 hr 07/10/23 14:10 07/10/23 14:26 Temperature 98.1 F 98.1 F Pulse Rate 80 80 Respiratory Rate 16 16 Blood Pressure 126/47 L 126/47 L Pulse Oximetry 98 98 Oxygen Delivery Method Room Air Room Air BMI result Body Mass Index 30.6 Vital signs stable, afebrile Const General: cooperative, healthy appearing, comfortable and no acute distress Orientation/consciousness: patient oriented x3 Limitations: no limitations HENMT Other: + crusted vesicles on erythematous base along left V3, C3 dermatomes that does not cross the midline. No ocular involvement or involvement of left EAC. No sloughing. No involvement of mucous membranes. Spares palms, soles, web spaces. Head: Yes atraumatic Ears: hearing grossly normal bilaterally, external ears normal, TM's normal bilaterally, mastoids normal, no periauricular adenopathy and Abnormal EAC present (left EAC erythematous) Eyes Other: + no dendritic lesions General: appearance normal, both eyes and all related structures Conjunctivae: conjunctivae normal Sclerae: sclerae normal Pupils: Equal, round and reactive pupils present Neck Other: + see above Neck: Yes full ROM and Yes no lymphadenopathy Chest Chest palpation & inspection: normal inspection of the chest and normal palpation of entire chest wall Resp Effort & Inspection: normal respiratory effort and able to speak in complete sentences Auscultation: clear to auscultation bilaterally Cardio Rate: regular rate Rhythm: regular rhythm GI Inspection: Yes normal to inspection Skin Other: + see above Neuro General: patient oriented x3 and gait normal Cranial nerves: Yes Equal, round and reactive pupils present Course Course Course Narrative: 1422-- Patient's physical exam findings are consistent with herpes zoster. Rash spares the eye and the left EAC > there is no concern for [place] syndrome or herpes zoster ophthalmicus at this time. She reports no vision changes. Will send patient home on Valtrex. She currently takes gabapentin for nerve pain which should control zoster pain. Advised to take Tylenol and ibuprofen as well. Educated patient on herpes zoster. Patient has remained stable throughout ED visit today. Discussed worrisome signs and symptoms and when to return to the ED. All questions answered at this time. Patient is agreeable with disposition and stable for discharge. Medical Decision Making Medical Decision Making [facility] Narrative: 62-year-old female with pmhx significant for GERD, insomnia, depression, fibromyalgia, obesity, hepatic steatosis, asthma, T2DM, CKD, diabetic neuropathy, HTN, HDL, CAD, NSTEMI presents to the ED today for evaluation of rash to left side of her face x2 days. Vital signs stable, afebrile. She is nontoxic appearing in no acute distress. On skin exam, there are crusted vesicles on erythematous base along left V3, C3 dermatomes that does not cross the midline. No ocular involvement or involvement of left EAC. No sloughing. No involvement of mucous membranes. Spares palms, soles, web spaces. Abd soft, ND/NT, no rebound or guarding. Normoactive BS x4. Differential diagnosis includes contact dermatitis, herpes zoster. Unlikely SJS/TEN, scabies, Lyme disease, tick borne illness, [place] syndrome, viral syndrome, herpes zoster ophthalmicus. Plan for discharge with antiviral. Differential Diagnosis Differential Diagnoses: The differential diagnosis associated with the presentation includes as above. Admission/Observation Not indicated External Record Review External record reviewed: Inpatient record, Office record, Outpatient record, Prior outpatient labs, Prior outpatient radiology, Primary care record and Outside ED record Tests considered The following testing was considered but not selected: I considered obtaining lab work however there is no concern for acute allergic reaction given exam findings are consistent with herpes zoster. Prescription Management I considered prescription management with: Pain Medication and Antiviral (Valtrex) Chronic Conditions Patient?s care impacted by: Hypertension Social Determinants Patient?s care significantly limited by Social Determinants of Health including: Other Social Determinant of Health Discharge Plan Discharge Clinical Impression: Herpes zoster Patient Disposition: Home, Self-Care Instructions: Valacyclovir (By mouth), Shingles (ED) Additional Instructions: You have shingles rash. Valtrex as an antiviral treatment that has been sent to your pharmacy. Take this for the next 7 days to treat shingles. Prednisone as a steroid that has been sent to your pharmacy. Take this as directed over the next 5 days. Take tylenol and ibuprofen for pain. Shingles is contagious until all vesicles have been crusted over. Return with new or worsening symptoms such as vision changes or eye pain. In the case of emergency call 911. Prescriptions: New valacyclovir [Valtrex] 1 gram tablet 1,000 mg PO TID 7 Days Qty: 21 0RF prednisone 20 mg tablet 40 mg PO DAILY 5 Days Qty: 10 0RF No Action insulin lispro [Humalog KwikPen Insulin] 100 unit/mL insulin pen See Rx Instructions subcut TID Qty: 15 1RF Rx Instructions: 5 units, + 2 units for bg over 200, + 4 units for bg over 300 subcut 3 times a day; Lantus Solostar U-100 Insulin 100 unit/mL (3 mL) insulin pen 24 unit subcut QPM Qty: 15 3RF gabapentin 100 mg capsule 200 mg PO BEDTIME Qty: 60 3RF aspirin 81 mg tablet,chewable 1 tab PO DAILY spironolactone 25 mg tablet 25 mg PO DAILY clopidogrel 75 mg tablet 75 mg PO DAILY atorvastatin 80 mg tablet 80 mg PO DAILY metoprolol succinate 50 mg tablet extended release 24 hr 50 mg PO DAILY mirtazapine 30 mg tablet 30 mg PO BEDTIME albuterol sulfate 90 mcg/actuation HFA aerosol inhaler inhalation torsemide 20 mg tablet 20 mg PO ONCE PRN (DME) FreeStyle Kusum 14 Day Sensor Kit See Rx Instructions .ROUTE Q2W Qty: 1 Rx Instructions: As directed (DME) lancets [FreeStyle Lancets] 28 gauge misc See Rx Instructions .ROUTE QID Qty: 100 Rx Instructions: As directed 4 times a day (DME) pen needle, diabetic [Unifine Pentips Plus] 32 gauge x 5/32 needle See Rx Instructions .ROUTE QID Qty: 50 Rx Instructions: As directed alcohol swabs Pads, Medicated 0 pad topical (DME) FreeStyle Lite Strips Strip See Rx Instructions .ROUTE QID Qty: 10 Rx Instructions: As directed 4 times a day (DME) blood-glucose meter [FreeStyle Lite Meter] Kit See Rx Instructions .ROUTE .MEDSUPPLY Qty: 1 Rx Instructions: As directed loratadine [Allergy Relief (loratadine)] 10 mg tablet 10 mg PO DAILY Farxiga 10 mg tablet 10 mg PO DAILY Ozempic 1 mg/dose (4 mg/3 mL) pen injector 1 mg subcut QWEEK Qty: 3 5RF Referrals: Av Gaytan MD [Primary Care Provider] - Interventions: ED Discharge Assessment Last Done: 07/10/23 14:26 Discharge Date/Time: 07/10/23 14:27
[2023-07-10 14:26] VITALS: BP 126/47; PULSE 80; RESP 16; TEMP 36.7; O2SAT 98
== END 2023-07-10 14:27 | disposition home or self-care (01) ==
PROVIDERS: Emergency Provider Emergency Medicine; PCP Internal Medicine Medical Oncology
DX: B02.9 Zoster without complications (principal); E11.22 Type 2 diabetes mellitus with diabetic chronic kidney disease; I12.9 Hypertensive chronic kidney disease with stage 1 through stage 4 chronic kidney disease, or unspecified chronic kidney disease; N18.9 Chronic kidney disease, unspecified; J45.909 Unspecified asthma, uncomplicated
CPT/HCPCS: 99282; 99283

== ENCOUNTER 2023-08-11 09:15 | Outpatient (AMB) | payer OTHER, SELFPAY ==
--- NOTE | 2023-08-11 09:17 | MHC.OFFVIS ---
Vital Signs 08/11/23 09:21 Height 5 ft 2 in Weight 165 lb 12.602 oz BMI 30.3 BP 118/80 Blood Pressure Location Rt brachial Position Sitting Pulse 58 Pulse Source Pulse Oximeter Pulse Oximetry (%) 65 L Intake Visit Reasons: T2DM Intake Note: Patient presents today to follow up on D2MT. Last Diabetic Eye exam: Patient is unsure Last Podiatry Visit: Doesn't have one Random Glucose: 130 mg/dl HgA1c: Quality Control Analyst Required: No Accompanied by: Self / Same As Patient Allergies iodine [IODINE] Allergy (Intermediate, Verified 08/11/23 09:25) PT UNSURE latex [LATEX] Allergy (Intermediate, Verified 08/11/23 09:25) RASH ketorolac Allergy (Unknown, Verified 08/11/23 09:25) Unknown oxycodone Allergy (Unknown, Verified 08/11/23 09:25) Unknown From TORADOL Allergy (Unknown, Uncoded 08/11/23 09:25) STOMACH UPSET Medication List - Last Reconciled 08/11/23 by Av Neumann MD albuterol sulfate 90 mcg/actuation inhalation alcohol swabs 0 pad topical aspirin 1 tab PO DAILY atorvastatin 80 mg PO DAILY blood sugar diagnostic (FreeStyle Lite Strips) As directed 4 times a day blood-glucose meter (FreeStyle Lite Meter kit) As directed clopidogrel 75 mg PO DAILY dapagliflozin propanediol (Farxiga) 10 mg PO DAILY flash glucose sensor (FreeStyle Kusum 14 Day Sensor kit) As directed gabapentin 200 mg (2 x 100 mg) PO BEDTIME insulin glargine (Lantus Solostar U-100 Insulin) 24 units (0.24 mL) subcut QPM insulin lispro (Humalog KwikPen (U-100) Insulin) 5 units, + 2 units for bg over 200, + 4 units for bg over 300 subcut 3 times a day; lancets (FreeStyle Lancets) As directed 4 times a day loratadine (Allergy Relief (loratadine)) 10 mg PO DAILY metoprolol succinate ER 50 mg PO DAILY mirtazapine 30 mg PO BEDTIME pen needle, diabetic (Unifine Pentips Plus) As directed prednisone 40 mg (2 x 20 mg) PO DAILY 5 days semaglutide (Ozempic) 2 mg (0.75 mL) subcut QWEEK spironolactone 25 mg PO DAILY torsemide 20 mg PO ONCE PRN valacyclovir (Valtrex) 1,000 mg PO TID 7 days HPI Comments Details: Patient is a 62-year-old female with DM type 2 diagnosed over 20 years ago, who presents for management of diabetes. Past medical history: Diabetes type 2, hypertension hyperlipidemia, fibromyalgia Micro and macrovascular complications: + retinopathy, +nephropathy, +CAD, Diabetes medications: Lantus 24 units, Humalog 5 units, + 2 units >150mg/dl, +4 units >200. +6 units >300. Trulicity 1.5mg. She is intolerant of and not a candidate for metformin and is an inappropriate candidate for pioglitazone due to osteoporosis. Also takes Farxiga 10 mg QD, Ozempic 1 mg Qwkly Symptoms reported: occasional numbness, in legs Hypoglycemia: Infrequent CGM: In the past 14 days CGM is active 95%. Average blood glucose 162. Glucose management indicator 7.2%. Glucose variability 26.2%. 70% of blood glucose within target range of 70-180. 28% high from 181-250. 2% very high over 250.. Median blood glucose is either just below or above 180 throughout the day. There is a slight postprandial elevation after breakfast Very infrequent lows Exercise: walk 15 - 30 minutes a day. 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 Diabetes HLD (hyperlipidemia) HTN (hypertension) History of [place] (myocardial infarction) (~04/2013) CAD (coronary artery disease) Surgical History S/P CABG (coronary artery bypass graft) Hx of cataract surgery Hx of tonsillectomy Hx of appendectomy Hx of cardiac cath (~11/2019) Family History Father Diabetes Emphysema/COPD Mother CVD (cardiovascular disease) HTN (hypertension) Brother Diabetes Daughter Diabetes Social History Household Members: Family Household Members Other:: grandson Alcohol intake: never Patient Tobacco Use Status: Never used Tobacco Female Reproductive History Menstrual Age of Menarche: 14 Physical Exam Absence of Cushingoid features. Absence of acromegalic features. Neck exam reveals nl size thyroid about 15 gms. No thyroid nodules palpable. No carotid bruits present. Lungs CTA. Heart S1 S2, Reg R/R. No M/R/ G. Skin exam reveals absence of vitiligo or acanthosis nigricans. Abdominal exam reveals Soft NT/ND with NA BS. No organomegaly present. Neck Other: . Extrem Other: Visual exam of foot performed. No ulcerations or open lesions. No onchomycosis, no callouses.Pulses 2 + distally Sensation intact to monofilament exam. Vibratory sensation sensed is Decreased with 128 Hz tuning fork Assessment & Plan Assessment & Plan (1) Type 2 diabetes mellitus with diabetic polyneuropathy: Code(s): E11.42 - Type 2 diabetes mellitus with diabetic polyneuropathy Category: Medical Qualifiers: Diabetes mellitus fpc insulin use: with terminal operator use Qualified Code(s): E11.42 - Type 2 diabetes mellitus with diabetic polyneuropathy; Z79.4 - USP (current) use of insulin Plan: This is a 62-year-old female with history of type 2 diabetes being treated with Ozempic , Farxiga and basal- bolus insulin with good improved glycemic control and known microvascular complications namely neuropathy and CKD. The plan is increase the Ozempic 2 mg Q weekly. Patient was told to report any hypoglycemia. At this point, patient returned to the care of her primary care provider and returned back to endocrinology should her HbA1c deteriorate Medications: New semaglutide (Ozempic) 2 mg (0.75 mL) subcut QWEEK 3 mL 5RF Discontinued semaglutide (Ozempic) Discontinued Reason: Doctor's Order 1 mg (0.75 mL) subcut QWEEK 3 mL 5RF Coding Level of Care Code Est Pt Level 4 (33939) Diagnoses Type 2 diabetes mellitus with diabetic polyneuropathy, with long-term current use of insulin E11.42; Z79.4 Diabetes mellitus fpc insulin use: with terminal operator use
[2023-08-11 09:21] VITALS: BP 118/80; PULSE 58; O2SAT 65; BMI 30.3
[2023-08-11 09:33] LABS: Glucose, Whole Blood 130 mg/dL (60-115)
== END 2023-08-11 09:40 | disposition home or self-care (01) ==
PROVIDERS: PCP Internal Medicine Medical Oncology; Visit Provider Internal Medicine Endocrinology, Diabetes & Metabolism
DX: Z13.9 Encounter for screening, unspecified (principal); E11.42 Type 2 diabetes mellitus with diabetic polyneuropathy; Z79.4 Long term (current) use of insulin
CPT/HCPCS: 99214

== ENCOUNTER → 2023-08-11 09:15 | Outpatient (BNVA) | payer OTHER, SELFPAY | PROVIDERS: PCP Internal Medicine Medical Oncology; Visit Provider Internal Medicine Endocrinology, Diabetes & Metabolism | DX: E11.21 Type 2 diabetes mellitus with diabetic nephropathy (principal); E11.319 Type 2 diabetes mellitus with unspecified diabetic retinopathy without macular edema; E11.42 Type 2 diabetes mellitus with diabetic polyneuropathy; I10 Essential (primary) hypertension; E78.5 Hyperlipidemia, unspecified; Z79.4 Long term (current) use of insulin | CPT/HCPCS: 82947; 83036; 99212 ==

== ENCOUNTER 2023-11-11 09:20 | Outpatient (REF) | payer OTHER, SELFPAY ==
[2023-11-11 09:36] LABS: MANUAL DIFF FLAG NO
[2023-11-11 10:00] LABS: Basophils Absolute Auto 0.1 X10*3/uL (0.0-0.2); Basophils Percent Auto 0.5 % (0-2); Eosinophils Absolute Auto 0.3 X10*3/uL (0.0-0.4); Eosinophils Percent Auto 2.7 % (0-4); Hematocrit 39.4 % (37.0-47.0); Hemoglobin 12.6 g/dl (12.0-16.0); Imm Gran Abs Auto 0.04 X10*3/uL (0.00-0.03); Imm Gran Pct Auto 0.4 % (0.0-0.4); Lymphocytes Absolute Auto 2.7 X10*3/uL (1.2-4.9); Lymphocytes Percent Auto 25.4 % (20-40); Mean Corpuscular Hemoglobin 28.1 pg (27.0-33.0); Mean Corpuscular Volume 87.8 fL (80.0-98.0); Monocytes Absolute Auto 0.6 X10*3/uL (0.1-1.2); Monocytes Percent Auto 5.7 % (2-11); Neutrophils Absolute Auto 6.8 x10*3/uL (2.0-8.3); Neutrophils Percent Auto 65.3 % (45-73); Platelet Count 236 X10*3/uL (160-400); Red Blood Count 4.49 X10*6/uL (4.20-5.50); Red Cell Distribution Width 12.8 % (11.0-16.0); White Blood Count 10.4 X10*3/uL (4.8-10.8)
[2023-11-11 10:09] LABS: Estimated Average Glucose 160 mg/dL; Hemoglobin A1c % 7.2 % (<6.0)
[2023-11-11 10:36] LABS: Alanine Aminotransferase 20 U/L (0-31); Albumin Level 4.1 g/dL (3.5-5.0); Alkaline Phosphatase 105 U/L (39-117); Anion Gap 13 (12-20); Aspartate Amino Transferase 23 U/L (5-31); Bilirubin Total 0.3 mg/dL (0.0-1.0); Blood Urea Nitrogen 23 mg/dL (9-16); Calcium 9.7 mg/dL (8.4-10.2); Carbon Dioxide 22 mmol/L (22-29); Chloride 108 mmol/L (96-108); Cholesterol 134 mg/dL (<200); Estimated Glomerular Filt Rate 54; Glucose Fasting 79 mg/dL (60-99); HDL Cholesterol 39 mg/dL (>40); LDL Cholesterol Calculated 50 mg/dL (<100); Potassium 4.3 mmol/L (3.3-5.1); Sodium 139 mmol/L (135-145); Total Protein 7.9 g/dL (6.5-8.0); Triglycerides 227 mg/dL (<150)
== END 2023-11-11 09:21 | disposition home or self-care (01) ==
LOC: HO.LAB 09:20
PROVIDERS: PCP Internal Medicine Medical Oncology; Visit Provider Internal Medicine Medical Oncology
DX: E11.9 Type 2 diabetes mellitus without complications (principal)
CPT/HCPCS: 36415; 80053; 80061; 83036; 85025

== ENCOUNTER 2024-05-19 08:46 | Outpatient (REF) | payer OTHER, SELFPAY ==
--- OUTSIDE RECORDS SUMMARY | 2024-05-19 08:51 | XMS_ITS | Encounter Summary ---
Author Organization [facility] Address [address] [facility] [address] [place] [address] Phone Care Team Providers Care Professor Of Communication Arts Name Role Phone Av Gaytan MD Primary Care Provider [phone] Reason for Visit * Reason Comments Med Refill Encounter Details Date Type Department Care Team (Late st Contact Info) Description 03/23/2023 Refill [facility] [address] [place] [phone] Fan Carter MD [address] [facility] [address] [place] [phone] Social History Tobacco Use Types Packs/Day Years Used Date Smoking Tobacco: Never Smokeless Tobacco: Never Alcohol Use Standard Drinks/Week Comments No 0 (1 standard drink = 0.6 oz pur e alcohol) Comments Unknown Sex and Gender Information Value Date Recorded Sex Assigned at Not on file Legal Sex Female 4:57 PM EST Gender Identity Not on file Sexual Orientation Not on file documented as of this encounter Plan of Treatment Not on file documented as of this encounter Visit Diagnoses Not on filedocumented in this encounter Care Teams Professor Of Communication Arts Relationship Specialty Start Date End Date Av Gaytan MD [address] [facility] [address] [facility] [place] P[facility] - General Medical Oncology 11/07/20 documented as of this encounter
--- OUTSIDE RECORDS SUMMARY | 2024-05-19 08:51 | XMS_ITS | Clinical Summary ---
Author Organization [facility] Address [address] [address] Care Team Providers Care License Examiner Name Role Phone Av Gaytan MD Primary Care Provider [phone] Allergies Active Allergy Reactions Criticality Noted Date Comments Iodine 11/07/2020 Ketorolac Tromethamine Other (see comments) 06/2021 Latex Other (see comments) 11/07/2020 Oxycodone Other (see comments) 11/07/2020 Temsirolimus Other (see comments) 03/20/2022 Tramadol Other (see comments) 11/14/2021 Medications acetaminophen (TYLENOL) 325 MG tablet Take 975 mg by mouth 3 (three) times a day if needed Active insulin lispro (HumaLOG) 100 UNIT/ML injection Inject 5 Units under the skin 4 (four) times a day Active aspirin 81 MG chewable tablet Chew 81 mg 1 (one) time each day 10/19/2020 Active atorvastatin (LIPITOR) 80 MG tablet Take 80 mg by mouth 1 (one) time each day Active insulin glargine (Basaglar KwikPen) 100 UNIT/ML injection Inject 24 Units under the skin Active sacubitril-vals lavon (Entresto) 24-26 MG per tablet Take 1 tablet by mouth 2 (two) times a day Active gabapentin (NEURONTIN) 100 MG capsule Take 100 mg by mouth every night 08/07/2020 Active metoprolol succinate XL (TOPROL XL) 50 MG 24 hr tablet Take 50 mg by mouth 1 (one) time each day Active spironolactone (ALDACTONE) 25 MG tablet Take 25 mg by mouth 1 (one) time each day Active torsemide (DEMADEX) 20 MG tablet Take 20 mg by mouth 2 (two) times a day 10/10/2020 Active venlafaxine (EFFEXOR) 75 MG tablet Take 75 mg by mouth 2 (two) times a day Active Dulaglutide (Trulicity) 1.5 MG/0.5ML solution pen-injector Inject under the skin Active Farxiga 5 MG tablet TAKE ONE TABLET BY MOUTH EVERY DAY 90 tablet 2 06/20/2022 Active ergocalciferol 1.25 MG (33011 UT) capsule Take 1 capsule (50,000 Units total) by mouth every 14 (fourteen) days 6 capsule 2 06/05/2023 Active Active Problems Problem Noted Date Diagnosed Date Screening for malignant neoplasm of colon 2021 Long-term current use of antiplatelet drug 04/09 Irregular bowel habits 04/09/2022 Encounter for other preprocedural examination Hematochezia 04/09/2022 Tremor 02/14/2022 Right coronary artery occlusion 02/14/2022 Osteoporosis 02/14/2022 Obesity 02/14/2022 Mild left ventricular systolic dysfunction 02/14 Major depressive disorder with single episode Hyperlipidemia 02/14/2022 Gastroesophageal reflux disease 02/14/2022 Coronary arteriosclerosis 02/14/2022 Fibromyalgia 02/14/2022 Asthma 02/14/2022 Proteinuria 07/16/2021 Stage 3a chronic kidney disease 11/07/2020 Renal osteodystrophy 11/07/2020 Type 2 diabetes mellitus wit h diabetic chronic kidney disease 11/07/2020 Essential hypertension 09/25/2020 Type 2 diabetes mellitus 09/25/2020 Resolved Problems Problem Noted Date Diagnosed Date Resolved Date Nocturnal enuresis 09/25/2020 Immunizations Name Administration Dates Next Due Influenza, Quadrivalent, Pre servative Free 02/20/2021,03/07/2020 Influenza, Unspecified 03/14/2022,2016,01/27/2015,2013 Pfizer SARS-COV-2 02/28/2021,11/01/2020,10/06/19 21 Family History Medical History Relation Comments Diabetes Father Hypertension Mother Relation Status Comments Father Mother Social History Tobacco Use Types Packs/Day Years Used Date Smoking Tobacco: Never Smokeless Tobacco: Never Alcohol Use Standard Drinks/Week Comments No 0 (1 standard drink = 0.6 oz pur e alcohol) Comments Unknown Sex and Gender Information Value Date Recorded Sex Assigned at Not on file Legal Sex Female 4:57 PM EST Gender Identity Not on file Sexual Orientation Not on file Last Filed Vital Signs Vital Sign Reading Time Taken Comments Blood Pressure 121/65 04/09/2022 1:00 PM EST Pulse 74 04/09/2022 1:00 PM EST Temperature - - Respiratory Rate - - Oxygen Saturation 98% 04/09/2022 1:00 PM EST Inhaled Oxygen Concentration - - Weight 78.5 kg (173 lb) 04/09/2022 1:00 PM EST Height - - Body Mass Index - - Plan of Treatment Health Maintenance Due Date Last Done Comments Breast Cancer Screening 1962 Pneumococcal Vaccine: Pediatrics (0 to 5 Years) and At-Risk Patients (6 to 64 Years) (1 of 2 - PCV) 1968 Colorectal Cancer Screening: Annual FOBT 11/05/2011 Colorectal Cancer Screening: Colonoscopy 11/05/2011 Colorectal Cancer Screening: Sigmoidoscopy 11/05/2011 Diabetes: Hemoglobin A1C 05/15/2020 Diabetes: Ophthalmology Exam 05/15/2020 Diabetes: Pedal Pulse Checked 05/15/2020 Diabetes: Sensory Foot Exam 05/15/2020 Diabetes: Visual Foot Exam 05/15/2020 Influenza Vaccine (#1) 2023 2, 02/20/2021, 03/07/2020, Additional history exists Hepatitis B Vaccine Aged Out No longe r eligible based on patient's age to complete this topic Insurance [facility] MEDICAID [address] [address] MEDICAID Care Teams License Examiner Relationship Specialty Start Date End Date Av Gaytan MD [address] [place] [address] [id number] [place], [place] PCP - General Medical Oncology 11/07/20
--- OUTSIDE RECORDS SUMMARY | 2024-05-19 08:51 | XMS_ITS | Clinical Summary ---
Author Organization [email or web address] Address [address] [facility] [address] [place] [address] Care Team Providers Care Medical Receptionist Biller Name Role Phone Unavailable Primary Care Provider Unavailabl e Social History Tobacco Use Types Packs/Day Years Used Date Smoking Tobacco: Never Assessed Comments Unknown Sex and Gender Information Value Date Recorded Sex Assigned at Female 02/11/2022 10:38 AM EDT Legal Sex Female 10:38 AM EDT Gender Identity Choose not to disclose 10:38 AM EDT Sexual Orientation Choose not to disclose 2021 10:38 AM EDT Plan of Treatment Health Maintenance Due Date Last Done Comments CT Colonography 1962 Colonoscopy 1962 Colorectal Cancer Screening 1962 Depression Screening 1962 FIT DNA/Cologuard 1962 FIT 1962 FOBT 1962 Sigmoidoscopy 1962 Alcohol/Substance Use Screening 1974 Tobacco Screening 1974 DTaP/Tdap/Td Vaccines (1 - Tdap) 1981 Pap Smear 11/05/1983 Cervical Cancer Screening 1992 HPV/Cotest 1992 Mammogram 2002 Zoster Vaccines (1 of 2) 2012 Pneumococcal Vaccine: 50+ Years (2 of 2 - PCV) 04/21/2014 04/21/2013 COVID-19 Vaccine ( season) 2023 02/28/2021, 11/01/2020, 10/05/2020 Influenza Vaccine (#1) 2023 2, 02/20/2021, 03/07/2020, Additional history exists RSV Patients and Patients Aged 60 years or older (1 - 1-dose 75+ series) 2037 Pneumococcal Vaccine: Pediatrics (0 to 5 Years) and At-Risk Patients (6 to 49) Years) Aged Out 04/21/2013 No longer eligible based on patient's age to complete this topic HIB Vaccines Aged Out No longer eligi ble based on patient's age to complete this topic HPV Vaccines Aged Out No longer eligi ble based on patient's age to complete this topic Hepatitis A Vaccines Aged Out No long er eligible based on patient's age to complete this topic Hepatitis B Vaccines Aged Out No long er eligible based on patient's age to complete this topic IPV Vaccines Aged Out No longer eligi ble based on patient's age to complete this topic Meningococcal Vaccine Aged Out No trang umu eligible based on patient's age to complete this topic RSV under 20 months Aged Out No longe r eligible based on patient's age to complete this topic Rotavirus Vaccines Aged Out No longer eligible based on patient's age to complete this topic
[2024-05-19 09:35] LABS: MANUAL DIFF FLAG NO
[2024-05-19 10:24] LABS: Basophils Percent Auto 0.3 % (0-2); Eosinophils Absolute Auto 0.2 X10*3/uL (0.0-0.4); Eosinophils Percent Auto 1.9 % (0-4); Hematocrit 39.2 % (37.0-47.0); Hemoglobin 12.5 g/dl (12.0-16.0); Imm Gran Abs Auto 0.04 X10*3/uL (0.00-0.03); Imm Gran Pct Auto 0.4 % (0.0-0.4); Lymphocytes Percent Auto 20.4 % (20-40); Mean Corpuscular HGB Conc 31.9 g/dl (31.0-35.0); Mean Corpuscular Hemoglobin 27.5 pg (27.0-33.0); Mean Corpuscular Volume 86.3 fL (80.0-98.0); Mean Platelet Volume 11.3 fL (9.4-12.3); Monocytes Absolute Auto 0.5 X10*3/uL (0.1-1.2); Monocytes Percent Auto 5.2 % (2-11); Neutrophils Percent Auto 71.8 % (45-73); Platelet Count 222 X10*3/uL (160-400); Red Blood Count 4.54 X10*6/uL (4.20-5.50); Red Cell Distribution Width 13.2 % (11.0-16.0); White Blood Count 9.8 X10*3/uL (4.8-10.8)
[2024-05-19 10:34] LABS: Estimated Average Glucose 169 mg/dL; Hemoglobin A1C 195.7521 umol/L; Hemoglobin A1c % 7.5 % (<6.0); Total Hemoglobin (HGBA1C) 3349.6607 umol/L
[2024-05-19 10:38] LABS: Cholesterol 130 mg/dL (<200); HDL Cholesterol 40 mg/dL (>40); LDL Cholesterol Calculated 43 mg/dL (<100); Triglycerides 236 mg/dL (<150)
[2024-05-19 11:00] LABS: Alanine Aminotransferase 28 U/L (0-31); Albumin Level 4.2 g/dL (3.5-5.0); Alkaline Phosphatase 109 U/L (39-117); Anion Gap 14 (12-20); Aspartate Amino Transferase 25 U/L (5-31); Bilirubin Total 0.3 mg/dL (0.0-1.0); Blood Urea Nitrogen 37 mg/dL (9-16); Calcium 9.4 mg/dL (8.4-10.2); Carbon Dioxide 20 mmol/L (22-29); Chloride 110 mmol/L (96-108); Estimated Glomerular Filt Rate 46; Glucose Fasting 144 mg/dL (60-99); Potassium 4.8 mmol/L (3.3-5.1); Sodium 139 mmol/L (135-145); Total Protein 8.2 g/dL (6.5-8.0)
[2024-05-19 11:04] LABS: Creatinine Urine 84.18 mg/dL
[2024-05-19 11:17] LABS: Microalbum/Creatinine Ratio Ur 830.3 ug/mg cr (<30)
== END 2024-05-19 08:47 | disposition home or self-care (01) ==
LOC: HO.LAB 08:46
PROVIDERS: PCP Internal Medicine Medical Oncology; Visit Provider Internal Medicine Medical Oncology
DX: I10 Essential (primary) hypertension (principal); I25.10 Atherosclerotic heart disease of native coronary artery without angina pectoris; E11.9 Type 2 diabetes mellitus without complications; E78.5 Hyperlipidemia, unspecified
CPT/HCPCS: 36415; 80053; 80061; 82043; 82570; 83036; 85025

== ENCOUNTER 2024-08-20 11:16 | Outpatient (REF) | payer OTHER, SELFPAY ==
--- NOTE | ~2024-08-20 | XR_ITS ---
EXAMINATION: XR CHEST CLINICAL INFORMATION: SWELLING COMPARISON: December 07, 2019. TECHNIQUE: 2 views of the chest were obtained. FINDINGS: No consolidation, pleural fissure pneumothorax. Cardiomediastinal silhouette size is normal. Single electrode leads in the right heart chamber from a left-sided pacemaker. Sternal wires. Multilevel thoracolumbar spondylosis and a shaped curvature of the thoracolumbar spine no fully evaluated. XR/XR chest 2V IMPRESSION: No acute airspace disease. Electronically signed by: Cholo Rome MD 08/20/2024 11:59 AM EDT
--- NOTE | 2024-08-20 11:23 | ECG_ITS ---
Test Reason : CHEST PAIN Blood Pressure : */* mmHG Vent. Rate : 73 BPM Atrial Rate : 73 BPM P-R Int : 158 ms QRS Dur : 90 ms QT Int : 404 ms P-R-T Axes : 61 6 131 degrees QTcB Int : 445 ms Normal sinus rhythm Inferior infarct , age undetermined ST & T wave abnormality, consider lateral ischemia Abnormal ECG When compared with ECG of 07-Dec-2019 21:02, Inferior infarct is now Present Nonspecific T wave abnormality no longer evident in Inferior leads Referred By: Av Gaytan Electronically Signed By: ZACHERY OLVERA
[2024-08-20 11:29] LABS: MANUAL DIFF FLAG NO
[2024-08-20 11:37] LABS: Basophils Absolute Auto 0.1 X10*3/uL (0.0-0.2); Basophils Percent Auto 0.4 % (0-2); Eosinophils Absolute Auto 0.2 X10*3/uL (0.0-0.4); Eosinophils Percent Auto 1.8 % (0-4); Hemoglobin 12.4 g/dl (12.0-16.0); Imm Gran Abs Auto 0.05 X10*3/uL (0.00-0.03); Imm Gran Pct Auto 0.4 % (0.0-0.4); Lymphocytes Absolute Auto 2.9 X10*3/uL (1.2-4.9); Lymphocytes Percent Auto 25.9 % (20-40); Mean Corpuscular HGB Conc 31.8 g/dl (31.0-35.0); Mean Corpuscular Hemoglobin 27.7 pg (27.0-33.0); Mean Corpuscular Volume 87.1 fL (80.0-98.0); Mean Platelet Volume 10.7 fL (9.4-12.3); Monocytes Absolute Auto 0.7 X10*3/uL (0.1-1.2); Monocytes Percent Auto 5.9 % (2-11); Neutrophils Absolute Auto 7.4 x10*3/uL (2.0-8.3); Neutrophils Percent Auto 65.6 % (45-73); Platelet Count 236 X10*3/uL (160-400); Red Blood Count 4.48 X10*6/uL (4.20-5.50); White Blood Count 11.2 X10*3/uL (4.8-10.8)
--- OUTSIDE RECORDS SUMMARY | 2024-08-20 11:44 | XMS_ITS | Clinical Summary ---
Author Organization [facility] Address [address] [facility] [address] [place] [address] Care Team Providers Care Cardiopulmonary Supervisor Name Role Phone Unavailable Primary Care Provider [...] older (1 - 1-dose 75+ series) 2037 HIB Vaccines Aged Out No longer eligi [...]
--- OUTSIDE RECORDS SUMMARY | 2024-08-20 11:44 | XMS_ITS | Patient Health Record ---
Author Organization Av Gaytan III, MD Address [address] [place] [address] Care Team Providers Care Document Imaging Specialist Name Role Phone Av Gaytan Primary Care Provider [phone] Allergies Allergen (clinical drug ingredient) Drug/Non Drug Allergy documented on EMR Reaction Allergy Type Onset Date Status ketorolac Ketorolac Unknown Drug Allergy Active Latex Gloves Unknown Drug Allergy Acti ve tramadol Tramadol HCl Unknown Drug Allergy Acti ve ketorolac Toradol (uncoded) Unknown Allergy Ac tive Results Component Value Reference Range Notes Lipid Panel Reviewed date:11/12/2023 01:07:26 PM Interpretation: Performing Lab:[facility], [address] [place] [phone] Notes/Report: Triglycerides 227 <150 mg/dL Desirable Triglyceride: less than 150 mg/dL Borderline High Triglyceride 150-199 mg/dL High Triglyceride: 200-499 mg/dL Very High Triglyceride: greater than or equal to 5OO mg/dL Cholesterol 134 <200 mg/dL Desirable Cholesterol: less than 200 mg/dL Borderline High Cholesterol: 200-239 mg/dL High Cholesterol: greater than 239 mg/dL LDL Cholesterol Calculated 50 <100 mg/dL Desirable LDL: less than 100 mg/dL Near Optimal/Above Optimal LDL: 110-129 mg/dL Borderline High LDL: 130-159 mg/dL High LDL: 160-189 mg/dL Very High LDL: greater than or equal to 190 mg/dL HDL Cholesterol 39 >40 mg/dL Desirable HDL: greater than 40 mg/dL Note: This HDL assay may give artificially low results in patients with liver disease. Lipid Panel Reviewed date:05/19/2024 11:51:09 AM Interpretation: Performing Lab:[facility], [address] [place] [phone] Notes/Report: Triglycerides 236 <150 mg/dL Desirable Triglyceride: less than 150 mg/dL Borderline High Triglyceride 150-199 mg/dL High Triglyceride: 200-499 mg/dL Very High Triglyceride: greater than or equal to 5OO mg/dL Cholesterol 130 <200 mg/dL Desirable Cholesterol: less than 200 mg/dL Borderline High Cholesterol: 200-239 mg/dL High Cholesterol: greater than 239 mg/dL LDL Cholesterol Calculated 43 <100 mg/dL Desirable LDL: less than 100 mg/dL Near Optimal/Above Optimal LDL: 110-129 mg/dL Borderline High LDL: 130-159 mg/dL High LDL: 160-189 mg/dL Very High LDL: greater than or equal to 190 mg/dL HDL Cholesterol 40 >40 mg/dL Desirable HDL: greater than 40 mg/dL Note: This HDL assay may give artificially low results in patients with liver disease. Microalbumin, Random Reviewed date:05/19/2024 11:51:09 AM Interpretation: Performing Lab:[facility], [address] [place] [phone] Notes/Report: Creatinine Urine 84.18 Microalbumin Urine 699.0 Microalbum/Creatinine Ratio Ur 830.3 <30 ug/mg cr Albumin/Creatinine Ratio Reference Ranges: Normal: < 30 ug/mg creatinine Microalbuminuria: 30 - 300 ug/mg creatinine Clinical Albuminuria: > 300 ug/mg creatinine Hemoglobin A1c Reviewed date:05/19/2024 11:51:09 AM Interpretation: Performing Lab:[facility], [address] [place] [phone] Notes/Report: Hemoglobin A1c % 7.5 <6.0 % Hemoglobin A1C Reference Range Adults: 4.8 - 6.0 % Non diabetic: < 6.0 % Goal: < 7.0 % Additional Action Suggested: > 8.0 % Note: Hemoglobin A1c results are invalid for patients with abnormal amounts of HbF. Blood transfusions may impact the HbA1c concentration in the patient sample. Estimated Average Glucose 169 eAG = Estimated average glucose which is %A1C expressed as average glucose, using the formula of the H3F-Jhapznp Average Glucose study (ADAG), Diabetes Care, Vol.31,#8, Nov. 2007 Complete Blood Count Auto Di ff Reviewed date:11/12/2023 01:07:26 PM Interpretation: Performing Lab:[facility], [address] [place] [phone] Notes/Report: White Blood Count 10.4 4.8-10.8 X10*3/uL Red Blood Count 4.49 4.20-5.50 X10*6/uL Hemoglobin 12.6 12.0-16.0 g/dl Hematocrit 39.4 37.0-47.0 % Mean Corpuscular Volume 87.8 80.0-98.0 fL Mean Corpuscular Hemoglobin 28.1 27.0-33.0 pg Mean Corpuscular HGB Conc 32.0 31.0-35.0 g/dl Red Cell Distribution Width 12.8 11.0-16.0 % Platelet Count 236 160-400 X10*3/uL Mean Platelet Volume 11.0 9.4-12.3 fL Neutrophils Percent Auto 65.3 45-73 % Imm Gran Pct Auto 0.4 0.0-0.4 % Lymphocytes Percent Auto 25.4 20-40 % Monocytes Percent Auto 5.7 2-11 % Eosinophils Percent Auto 2.7 0-4 % Basophils Percent Auto 0.5 0-2 % NRBC Pct Auto 0.0 0.0-0.2 /100WBC Neutrophils Absolute Auto 6.8 2.0-8.3 x10*3/u L Imm Gran Abs Auto 0.04 0.00-0.03 X10*3/uL Lymphocytes Absolute Auto 2.7 1.2-4.9 X10*3/u L Monocytes Absolute Auto 0.6 0.1-1.2 X10*3/uL Eosinophils Absolute Auto 0.3 0.0-0.4 X10*3/u L Basophils Absolute Auto 0.1 0.0-0.2 X10*3/uL NRBC Abs Auto 0.000 0.0-0.012 X10*3/uL Comprehensive [facility]. Panel Fa st Reviewed date:11/12/2023 01:07:26 PM Interpretation: Performing Lab:[address] [phone] Notes/Report: Sodium 139 135-145 mmol/L Potassium 4.3 3.3-5.1 mmol/L Chloride 108 96-108 mmol/L Carbon Dioxide 22 22-29 mmol/L Anion Gap 13 12-20 Blood Urea Nitrogen 23 9-16 mg/dL Creatinine 1.04 0.5-1.4 mg/dL Estimated Glomerular Filt Rate 54 NOTE: For -[place] individuals, multiply the result by 1.210. Chronic Kidney Disease: Estimated GFR < 60 mL/min/1.73m2 Severe Kidney Disease: Estimated GFR < 15 mL/min/1.73m2 Glucose Fasting 79 60-99 mg/dL Calcium 9.7 8.4-10.2 mg/dL Bilirubin Total 0.3 0.0-1.0 mg/dL Aspartate Amino Transferase 23 5-31 U/L Alanine Aminotransferase 20 0-31 U/L Total Protein 7.9 6.5-8.0 g/dL Albumin Level 4.1 3.5-5.0 g/dL Alkaline Phosphatase 105 39-117 U/L Hemoglobin A1c Reviewed date:11/12/2023 01:07:26 PM Interpretation: Performing Lab:[address] [phone] Notes/Report: Hemoglobin A1c % 7.2 <6.0 % Hemoglobin A1C Reference Range Adults: 4.8 - 6.0 % Non diabetic: < 6.0 % Goal: < 7.0 % Additional Action Suggested: > 8.0 % Note: Hemoglobin A1c results are invalid for patients with abnormal amounts of HbF. Blood transfusions may impact the HbA1c concentration in the patient sample. Estimated Average Glucose 160 eAG = Estimated average glucose which is %A1C expressed as average glucose, using the formula of the F3D-Frpkxrl Average Glucose study (ADAG), Diabetes Care, Vol.31,#8, Nov. 2007 Complete Blood Count Auto Di ff Reviewed date:05/19/2024 11:51:09 AM Interpretation: Performing Lab:[facility], [address] [place] [phone] Notes/Report: White Blood Count 9.8 4.8-10.8 X10*3/uL Red Blood Count 4.54 4.20-5.50 X10*6/uL Hemoglobin 12.5 12.0-16.0 g/dl Hematocrit 39.2 37.0-47.0 % Mean Corpuscular Volume 86.3 80.0-98.0 fL Mean Corpuscular Hemoglobin 27.5 27.0-33.0 pg Mean Corpuscular HGB Conc 31.9 31.0-35.0 g/dl Red Cell Distribution Width 13.2 11.0-16.0 % Platelet Count 222 160-400 X10*3/uL Mean Platelet Volume 11.3 9.4-12.3 fL Neutrophils Percent Auto 71.8 45-73 % Imm Gran Pct Auto 0.4 0.0-0.4 % Lymphocytes Percent Auto 20.4 20-40 % Monocytes Percent Auto 5.2 2-11 % Eosinophils Percent Auto 1.9 0-4 % Basophils Percent Auto 0.3 0-2 % NRBC Pct Auto 0.0 0.0-0.2 /100WBC Neutrophils Absolute Auto 7.0 2.0-8.3 x10*3/u L Imm Gran Abs Auto 0.04 0.00-0.03 X10*3/uL Lymphocytes Absolute Auto 2.0 1.2-4.9 X10*3/u L Monocytes Absolute Auto 0.5 0.1-1.2 X10*3/uL Eosinophils Absolute Auto 0.2 0.0-0.4 X10*3/u L Basophils Absolute Auto 0.0 0.0-0.2 X10*3/uL NRBC Abs Auto 0.000 0.0-0.012 X10*3/uL [facility]. Panel Fa st Reviewed date:05/19/2024 11:51:09 AM Interpretation: Performing Lab:[facility], [address] [place] [phone] Notes/Report: Sodium 139 135-145 mmol/L Potassium 4.8 3.3-5.1 mmol/L Chloride 110 96-108 mmol/L Carbon Dioxide 20 22-29 mmol/L Anion Gap 14 12-20 Blood Urea Nitrogen 37 9-16 mg/dL Creatinine 1.19 0.5-1.4 mg/dL Estimated Glomerular Filt Rate 46 Chronic Kidney Disease: Estimated GFR < 60 mL/min/1.73m2 Severe Kidney Disease: Estimated GFR < 15 mL/min/1.73m2 Glucose Fasting 144 60-99 mg/dL A fasting glucose of 126 mg/dl or greater on more than one occasion is considered diagnostic of diabetes. Calcium 9.4 8.4-10.2 mg/dL Bilirubin Total 0.3 0.0-1.0 mg/dL Aspartate Amino Transferase 25 5-31 U/L Alanine Aminotransferase 28 0-31 U/L Total Protein 8.2 6.5-8.0 g/dL Albumin Level 4.2 3.5-5.0 g/dL Alkaline Phosphatase 109 39-117 U/L Complete Blood Count Auto Di ff (Not yet reviewed by provider) Interpretation: Performing Lab:[facility], [address] [place] [phone] Notes/Report: White Blood Count 11.2 4.8-10.8 X10*3/uL Red Blood Count 4.48 4.20-5.50 X10*6/uL Hemoglobin 12.4 12.0-16.0 g/dl Hematocrit 39.0 37.0-47.0 % Mean Corpuscular Volume 87.1 80.0-98.0 fL Mean Corpuscular Hemoglobin 27.7 27.0-33.0 pg Mean Corpuscular HGB Conc 31.8 31.0-35.0 g/dl Red Cell Distribution Width 13.0 11.0-16.0 % Platelet Count 236 160-400 X10*3/uL Mean Platelet Volume 10.7 9.4-12.3 fL Neutrophils Percent Auto 65.6 45-73 % Imm Gran Pct Auto 0.4 0.0-0.4 % Lymphocytes Percent Auto 25.9 20-40 % Monocytes Percent Auto 5.9 2-11 % Eosinophils Percent Auto 1.8 0-4 % Basophils Percent Auto 0.4 0-2 % NRBC Pct Auto 0.0 0.0-0.2 /100WBC Neutrophils Absolute Auto 7.4 2.0-8.3 x10*3/u L Imm Gran Abs Auto 0.05 0.00-0.03 X10*3/uL Lymphocytes Absolute Auto 2.9 1.2-4.9 X10*3/u L Monocytes Absolute Auto 0.7 0.1-1.2 X10*3/uL Eosinophils Absolute Auto 0.2 0.0-0.4 X10*3/u L Basophils Absolute Auto 0.1 0.0-0.2 X10*3/uL NRBC Abs Auto 0.000 0.0-0.012 X10*3/uL Reason For Referral Reason Evaluate and Treat Chronic rhinorrhea Hearing loss Diagnosis 1 Hearing loss (H91.90 ) Diagnosis 2 Rhinorrhea (J34.89) Referral Organization Av Gaytan III, MD Referring Provider First Name Av Referring Provider Last Name Lukas Referring Provider Speciality Internal M edicine Referred Provider [facility], [facility], [facility] Referred Provider Specialty Otolaryngolo gy General Notes Ina Patricia 05/03/2024 11:25:04 AM > Cover sheet, referral and progress note faxed. Referral Priority Routine Medications Medication SIG (Take, Route, Frequency, Duration) Notes Start Date End Date Status Fexofenadine HCl 60 MG TAKE ONE TABLET B Y MOUTH TWICE A DAY Active Entresto 97-103 MG TAKE ONE TABLET BY M OUTH TWICE A DAY Oral Active ProAir HFA 108 (90 Base) MCG/ACT 2 puff as needed Inhalation every 4 hrs as needed for Wheezing Active Aspirin 81 MG 1 capsule Orally Onc e a day Active Farxiga 5 MG TAKE ONE TABLET BY M OUTH EVERY DAY Oral Active Allergy Relief 10 MG TAKE ONE TABLET BY MOUTH EVERY DAY Active FreeStyle Lite w/Device as directed Chec k blood glucose 4 times a day 03/20/2022 Active Gabapentin 100 MG TAKE 2 CAPSULES BY M OUTH AT BEDTIME Active BD Pen Needle Parul 2nd Gen 32G X 4 MM USE DIRECTED FOUR TIMES A DAY FOR INSULINS Active Mirtazapine 30 MG TAKE ONE TABLET BY M OUTH AT BEDTIME Active FreeStyle Kusum 3 Sensor - USE DIRECT ED TO CHECK BLOOD SUGAR FOUR TIMES A DAY Active Alcohol Prep - USE DIRECTED TO C HECK BLOOD SUGAR UP TO 6 TIMES PER DAY Active Spironolactone 25 MG TAKE ONE TABLET BY MOUTH EVERY DAY Active Torsemide 20 MG 1 tablet Orally Once a day Active HumaLOG KwikPen 100 UNIT/ML as directed Subcutaneous INJECT UP TO 5 UNITS THREE TIMES A DAY (2 UNITS FOR BLOOD GLUCOSE OVER 200, 4 UNITS FOR BLOOD GLUCOSE OVER 300) Active Metoprolol Succinate ER 50 MG TAKE ONE TABLET BY MOUTH EVERY DAY Active Loperamide HCl 2 MG 1 capsule as needed Orally Four times a day 07/14/2024 Active FreeStyle Lite Test - USE TO TEST BLOOD GLUCOSE FOUR TIMES A DAY Active FreeStyle Lancets - USE TO TEST BLOOD MIX GAR FOUR TIMES A DAY Active Loperamide HCl 2 MG 1 capsule as needed Oral Four times a day 07/13/2021 Active Vitamin D (Ergocalciferol) 1.25 MG (67775 UT) 1 capsule Orally one every 14 days Active Acetaminophen 325 MG 1 tablet as needed for pain and fever Orally every 4 hrs 01/02/2023 Active Lantus SoloStar 100 UNIT/ML INJECT 24 UNITS SUBCUTANEOUSLY Subcutaneous every evening Activ e FreeStyle Kusum 14 Day Sensor - as directed In Vitro Check blood sugar 4 times a day Active Insulin Lispro (1 Unit Dial) 100 UNIT/ML INJECT UP TO 5 UNITS UNDER THE SKIN THREE TIMES A DAY (2 UNITS FOR GLUCOSE OVER 200, 4 UNITS FOR GLUCOSE OVER 300) Active Loratadine 10 MG 1 tablet Orally Once a day 2022 Active Trulicity 1.5 MG/0.5ML as directed Subcu taneous Once a week Active FreeStyle Kusum 3 Plus Sensor - as directed use to check blood sugars up to four times a day 07/05/2024 Active Fluticasone Propionate 50 MCG/ACT 1 spray in each nostril Nasally Twice a day 02/13/2022 Active Immunizations Vaccine Route Administration Date Status Comme nts Influenza IM Intramuscular 02/07/2014 Administered PPD (Planted) ID Intradermal 09/20/2014 Administered resul ts were negative on 09/22/2014 Influenza IM Intramuscular 01/27/2015 Administered Influenza IM Intramuscular 01/16/2017 Administered Influenza, quad IM Intramuscular 03/07/2020 Administered Influenza, quad IM Intramuscular 02/20/2021 Administered COVID PFIZER Unknown 02/28/2021 Administered COVID PFIZER Unknown 11/01/2020 Administered COVID PFIZER Unknown 10/05/2020 Administered Influenza, quad IM Intramuscular 02/12/2023 Administered Social History Tobacco Use: Social History Observation Description Date Details (start date - stop date) Never Smoker NA - NA Sex Assigned At : Social History Observation Description Sex Assigned At Female Tobacco Use/Smoking Question Answer Notes Patient is a nonsmoker Additional Findings: Tobacco Non-User Aggressive non-smoker Alcohol Screen Question Answer Notes Did you have a drink containing alcohol in the p ast year? No Points 0 Interpretation Negative Problems Problem Type SNOMED Code ICD Code Onset Dates Problem Status W/U Status Risk Notes Problem 349953716 Asthma (J45.909) Active confirmed She has had no recent wheezing. She was breathing room air comfortably today. No change in her regimen is needed.Her examination today showed clear lungs Problem 06160513 Fibromyalgia (M79.7) Active confirmed Fibromyalgia has become a background of daily living. It seems to impair her ability to conduct daily life. There has been no change in the pattern of the discomfort. Problem 243654535 Overweight (E66.3) Active confirmed Her body mass index is 29. She has lost 3 pounds. She will continue her efforts at weight loss. Problem 43258956 Depression (F32.9) Active confirmed She continues to grieve the loss of her daughter. The depression component is mild and no change in her therapies indicated. It is gradually improving with time. She is completing all of the activities of daily living without impairment. Problem [id number] Obesity (BMI 30.0-34.9) (E66.9) Active confirmed Her body mass index is 30.5. She has lost 7 pounds. We discussed a strategy to continue her weight loss until the body mass index is in the normal range. Problem 99484966 Diabetes mellitus (E11.9) Active confirmed Her diabete s needs better control. I have tried to convince her to have a DEXA 1 censor. She will consider it.Increased her Lantus. I have counseled her about her diet. I strongly recommended weight losss. A short interval follow-up was arranged. Problem 322361329 GERD (gastroesophagea l reflux disease) (K21.9) Active confirmed Her reflux symptoms are well-controlle d with esyw-qpz-ncoca er medication. Problem 68957134 Coronary artery disease (I25.10) Active confirmed She denies any recent angina or palpitations or syncope. She has been compliant with all of her medications. Problem 13150492 Essential hypertension (I10) Active confirmed Her blood pressure is stable She has been compliant with her medication. I recommended aggressive weight loss and sodium restriction. No change in her medication is necessary. Problem Osteoporosis (01903500) Osteoporosis (M81.0) Active confirmed She will Continue on the calciumSupplem ents. Problem Environmental allergy (852860102) Environmental allergies (Z91.09) Active confirmed Problem Hearing loss (97871464) Hearing loss (H91.90) Active confirmed Problem 04608961 Carpal tunnel syndrome of right wrist (G56.01) Active confirmed There has been no change in this problem. Problem 412311313 Right coronary artery occlusion (I21.11) Active confirmed She has occasional angina relieved with rest and nitroglycerin. Problem 116084688051 Mild left ventricular systolic dysfunction (I51.9) Active confirmed She feels short of breath only with prolonged exertion. At rest she is free of any symptoms. Frequent follow-up was arranged. Problem 531895363 Herpes zoster without complication (B02.9) Active confirmed The episode from month ago has resolved leaving only a few red eldridge on her neck. Problem Seasonal allergy (375376279) Seasonal allergies (J30.2) Active confirmed Problem Hyperlipidaemia (15994821) Hyperlipidemia, unspecified hyperlipidemia type (E78.5) Active confirmed Comprehensive blood work with a fasting lipid profile was ordered today. No change in her medications was necessary at this point. Vital Signs Heart Rate 71 /min 05/19/2024 Temperature 97.6 degrees Fahrenheit 08/20/2024 Blood pressure diastolic 91 mm Hg 08/20/2024 Height 62 in 08/20/2024 Blood pressure systolic 147 mm Hg 08/20/2024 Weight 169 lbs 08/20/2024 BMI 30.91 kg/m2 08/20/2024 Encounters Encounter Location Date Provider Diagnosis Av Gaytan III, MD [address] [place] [address] [place] [address] 08/20/2024 Av Gaytan Infectious gastroenteritis A09 ; Overweight E66.3 ; Hyperlipidemia, unspecified hyperlipidemia type E78.5 ; Fatigue R53.83 ; Localized swelling, mass and lump, neck R22.1 and Chest pain R07.9 Av Gaytan III, MD [address] [place] [address] [place] [address] 11/11/2023 Av Gaytan Essential hypertensi on I10 ; Coronary artery disease I25.10 ; Diabetes mellitus E11.9 ; Hyperlipidemia, unspecified hyperlipidemia type E78.5 ; Carpal tunnel syndrome of right wrist G56.01 and Asthma J45.909 Av Gaytan III, MD [address] [place] [address] [place] [address] 02/17/2024 Av Gaytan Essential hypertensi on I10 ; Coronary artery disease I25.10 ; Diabetes mellitus E11.9 ; Hyperlipidemia, unspecified hyperlipidemia type E78.5 ; Depression F32.9 ; Asthma J45.909 ; GERD (gastroesophageal reflux disease) K21.9 and Osteoporosis M81.0 Av Gaytan III, MD [address] [place] [address] [place] [address] 04/29/2024 Av Gaytan Hyperlipidemia, unspecified hyperlipidemia type E78.5 ; Acute bronchitis due to other specified organisms J20.8 ; Coronary artery disease I25.10 ; Essential hypertension I10 ; Depression F32.9 and Asthma J45.909 Av Gaytan III, MD [address] [place] [address] [place] [address] 05/19/2024 Av Gaytan Essential hypertensi on I10 ; Diabetes mellitus E11.9 ; Obesity (BMI 30.0-34.9) E66.9 ; Hyperlipidemia, unspecified hyperlipidemia type E78.5 ; Coronary artery disease I25.10 ; Depression F32.9 ; Asthma J45.909 and Osteoporosis M81.0 Av Gaytan III, MD [address] [place] [address] [place] [address] 07/14/2024 Av Gaytan Infectious gastroenteritis A09 ; Depression F32.9 ; Asthma J45.909 ; Coronary artery disease I25.10 ; Fibromyalgia M79.7 ; Essential hypertension I10 and Osteoporosis M81.0 Av Gaytan III, MD [address] [place] [place] [address] 09/02/2023 Av Gaytan III, MD [address] [place] [place] [address] 09/02/2023 Av Gaytan III, MD [address] [place] [place] [address] 10/13/2023 Av Gaytan III, MD [address] [place] [place] [address] 10/29/2023 Av Gaytan Diabetes mellitus E1 1.9 Av Gaytan III, MD [address] [place] [place] [address] 02/13/2024 Av Gaytan III, MD [address] [place] [place] [address] 03/09/2024 Av Gaytan III, MD [address] [place] [place] [address] 03/23/2024 Av Gaytan Essential hypertensi on I10 Av Gaytan III, MD [address] [place] [place] [address] 06/15/2024 Av Gaytan III, MD [address] [place] [place] [address] 06/15/2024 Av Gaytan III, MD [address] [place] [place] [address] 06/29/2024 Av Gaytan Assessments Encounter Date Diagnosis (ICD Code) Assessment Notes Treat ment Notes Treatment Clinical Notes 08/20/2024 Infectious gastroenteritis (ICD-10 - A09) 11/11/2023 Coronary artery disease (ICD-10 - I25.10) She denies any recent angina or palpitations or syncope. She has been compliant with all of her medications. 11/11/2023 Essential hypertension (ICD-10 - I10) Her blood pressure today is 136/75. She has been compliant with her medication. I recommended aggressive weight loss and sodium restriction. No change in her medication is necessary. 02/17/2024 Coronary artery disease (ICD-10 - I25.10) She denies any recent angina or palpitations or syncope. She has been compliant with all of her medications. 02/17/2024 Essential hypertension (ICD-10 - I10) Her blood pressure today is 125/63. She has been compliant with her medication. I recommended aggressive weight loss and sodium restriction. No change in her medication is necessary. 04/29/2024 Acute bronchitis due to other specified organisms (ICD-10 - J20.8) She was given instructions on rest and fluids and decongestants. At her request she was given a prescription for azithromycin. She is a nondiabetic. 04/29/2024 Hyperlipidemia, unspecified hyperlipidemia type (ICD-10 - E78.5) Comprehensive blood work with a fasting lipid profile was ordered today. No change in her medications was necessary at this point. 05/19/2024 Diabetes mellitus (ICD-10 - E11.9) Her diabetes needs better control. I have tried to convince her to have a DEXA 1 censor. She will consider it.Increased her Lantus. I have counseled her about her diet. I strongly recommended weight losss. A short interval follow-up was arranged. 05/19/2024 Essential hypertension (ICD-10 - I10) Her blood pressure is stable She has been compliant with her medication. I recommended aggressive weight loss and sodium restriction. No change in her medication is necessary. 07/14/2024 Depression (ICD-10 - F32.9) She continues to grieve the loss of her daughter. The depression component is mild and no change in her therapies indicated. It is gradually improving with time. She is completing all of the activities of daily living without impairment. 07/14/2024 Infectious gastroenteritis (ICD-10 - A09) She was given instructions to hydrate herself aggressively and to use Imodium every 3 hours. She was instructed to call me in the office 10/29/2023 Diabetes mellitus (ICD-10 - E11.9) 03/23/2024 Essential hypertension (ICD-10 - I10) Her blood pressure today is 125/63. She has been compliant with her medication. I recommended aggressive weight loss and sodium restriction. No change in her medication is necessary. 08/20/2024 Overweight (ICD-10 - E66.3) 11/11/2023 Diabetes mellitus (ICD-10 - E11.9) The hemoglobin A1c is 7.2. She has lost 1 pound. We reviewed her diabetic diet and her risk factors for heart disease and stroke. 02/17/2024 Diabetes mellitus (ICD-10 - E11.9) No recent blood work is available. She says her fasting glucose is usually under 200. She has lost 6 pounds and is making an attempt to control the hyperglycemia with diet and weight loss. Her hemoglobin A1c in October of this year was 7.2. I have ordered a hemoglobin A1c. 04/29/2024 Coronary artery disease (ICD-10 - I25.10) She denies any recent angina or palpitations or syncope. She has been compliant with all of her medications. 05/19/2024 Obesity (BMI 30.0-34.9) (ICD-10 - E66.9) Her body mass index is 30.5. She has lost 7 pounds. We discussed a strategy to continue her weight loss until the body mass index is in the normal range. 07/14/2024 Asthma (ICD-10 - J45.909) She has had no recent wheezing. She was breathing room air comfortably today. No change in her regimen is needed.Her examination today showed clear lungs 08/20/2024 Hyperlipidemia, unspecified hyperlipidemia type (ICD-10 - E78.5) 11/11/2023 Hyperlipidemia, unspecified hyperlipidemia type (ICD-10 - E78.5) Her lipids have been drawn but are not yet available. I will speak with her on the telephone tomorrow and discuss her lab results. 02/17/2024 Hyperlipidemia, unspecified hyperlipidemia type (ICD-10 - E78.5) Comprehensive blood work with a fasting lipid profile was ordered today. No change in her medications was necessary at this point. 04/29/2024 Essential hypertension (ICD-10 - I10) On her last visit the blood pressure was 125/63. She has been compliant with her medication. I recommended aggressive weight loss and sodium restriction. No change in her medication is necessary. 05/19/2024 Hyperlipidemia, unspecified hyperlipidemia type (ICD-10 - E78.5) Comprehensive blood work with a fasting lipid profile was ordered today. No change in her medications was necessary at this point.

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
--- OUTSIDE RECORDS SUMMARY | 2024-08-20 11:45 | XMS_ITS | Encounter Summary ---
Author Organization [facility] Address [address] [facility] [address] [place] [address] Phone Care Team Providers Care Hospital Educator Name Role Phone Av Gaytan MD Primary Care Provider [phone] Reason for Visit * Reason Comments Med Refill Encounter Details Date Type Department Care Team (Late st Contact Info) Description 03/23/2023 Refill [facility] [address] [place] [phone] Fan Carter MD [address] [facility] [address] [place] [phone] Social History Tobacco Use Types Packs/Day Years [...] on filedocumented in this encounter Care Teams Hospital Educator Relationship Specialty Start Date End Date Av Gaytan MD [address] [facility] [id number] [place] PCP - General Medical Oncology 11/07/20 documented as of this encounter
--- OUTSIDE RECORDS SUMMARY | 2024-08-20 11:45 | XMS_ITS | Patient Health Record ---
Author Organization [facility] Address [address] [place] [address] Support Name Relationship Address Phone Benjamin Case Emergency Contact [address] [place] [address] BENJAMIN JIMENEZ Guarantor Unknown Care Team Providers Care Freelance Web Designer Name Role Phone Av Gaytan MD Primary Care Provider Av Samayoa Unavailable [phone] Allergies Allergen (clinical drug ingredient) Drug/Non Drug Allergy documented on EMR Reaction Allergy Type Onset Date Status temsirolimus Torisel Unknown Drug Allergy Acti ve Reason For Referral No Information Medications Medication SIG (Take, Route, Frequency, Duration) Notes Start Date End Date Status Fluticasone Propionate 50 MCG/ACT INSTILL 1 SPRAY INTO EACH NOSTRIL TWICE A DAY. Nasal for 30 Active FreeStyle Kusum 14 Day Sensor - USE ONE SENSOR DIRECTED EVERY 14 DAYS for 28 Active Torsemide 20 MG TAKE ONE TABLET ONLY FOR WEIGHT GAIN > 5 POUNDS OR LEG SWELLING NEEDED Oral for 30 Active Alcohol Swabs - USE DIRECTED TO C HECK BLOOD SUGAR UP TO 6 TIMES A DAY for 30 Active Farxiga 5 MG TAKE ONE TABLET BY M OUTH EVERY DAY Oral for 90 Active Atorvastatin Calcium Active Aspir-81 Active Baclofen Active Lantus SoloStar 100 UNIT/ML INJECT 24 UNITS SUBCUTANEOUSLY ONCE A DAY IN THE EVENING DIRECTED Subcutaneous for 60 Active Venlafaxine HCl ER A ctive Gabapentin 100 MG TAKE TWO CAPSULES BY MOUTH AT BEDTIME Oral for 30 Active CareOne Unifine Pentips Plus 32G X 4 MM USE DIRECTED FOUR TIMES A DAY FOR INSULINS for 30 Active Aspirin 81 MG CHEW AND SWALLOW ONE TABLET BY MOUTH EVERY DAY Oral for 30 Active Mirtazapine 30 MG TAKE ONE TABLET BY M OUTH AT BEDTIME Oral for 30 Active Spironolactone 25 MG TAKE ONE TABLET BY MOUTH EVERY DAY Oral for 30 Active Effient Not-Taking Clopidogrel Bisulfate 75 MG TAKE ONE TABLET BY MOUTH EVERY DAY Oral for 30 Active Metoprolol Succinate ER 50 MG TAKE ONE TABLET BY MOUTH EVERY DAY Oral for 30 Active FreeStyle Lancets - USE DIRECTED TO Yuri ERICKSON BLOOD SUGAR 4 TIMES PER DAY for 30 Active Insulin Lispro (1 Unit Dial) 100 UNIT/ML INJECT INSULIN UNDER THE SKIN THREE TIMES A DAY BASED ON BLOOD SUGAR. INJECT 2 UNITS IF SUGAR IS OVER 200, 4 UNITS IF OVER 300. MAX OF 5 UNI Subcutaneous for 90 Active MiraLax (colon prep) 17 GM/SCOOP 1 238Gm bottle mixed with Gatorade or Crystal Light Orally begin at 5:00 p.m. the day before the procedure for 1 day 03/20/2022 Active Dulcolax (colon prep) 5 MG take at 3:00 p.m and 7:00p.m. Orally two tablets twice a day for one day for 1 day 03/20/2022 Active Entresto 97-103 MG TAKE ONE TABLET BY M OUTH TWICE A DAY Oral for 90 Active Vitamin D (Ergocalciferol) 1.25 MG (27180 UT) TAKE ONE CAPSULE BY MOUTH EVERY 14 DAYS Oral for 84 Active HumaLOG 100 UNIT/ML Subcutaneous Active Lantus 100 UNIT/ML Subcutaneous Active Trulicity 1.5 MG/0.5ML INJECT ONE PEN UN LO THE SKIN ONCE A WEEK DIRECTED. Subcutaneous for 28 Active Dulcolax (colon prep) 5 MG take at 3:00 p.m and 7:00p.m. Orally two tablets twice a day for one day for 1 day 08/21/2017 Active MiraLax (colon prep) 8.3 ounce ((238) grams mixed with Gatorade or Crystal Light orally begin at 5:00 p.m. the day before the procedure for 1 day 08/21/2017 Active Losartan Potassium A ctive Metoprolol Tartrate Active Immunizations Vaccine Route Administration Date Status Comme nts Influenza Unknown 03/14/2022 Administered Problems Problem Type SNOMED Code ICD Code Onset Dates Problem Status W/U Status Risk Notes Problem Colon cancer screening (390735393) Colon cancer screening (Z12.11) Active confirmed Problem Long-term current use of antiplatelet drug (193704732856386 ) roasterman (current) use of aspirin (Z79.82) Active confirmed Problem 149341712 Blood in stool (K92.1) Active confirmed Problem Preprocedural examination (566583601149544 ) Preprocedural examination (Z01.818) Active confirmed Problem 089393480 Gastroesophageal reflux disease, esophagitis presence not specified (K21.9) Active confirmed Problem 620593796 Irregular bowel habits (R19.8) Active confirmed Plan Of Treatment Future Test Test Name Order Date COLONOSCOPY 05/02/2015 UPPER GI ENDOSCOPY 08/19/2017 COLONOSCOPY 08/19/2017 COLONOSCOPY 03/20/2022 Insurance Providers Payer Name Payer Address Payer Phone Subscriber Number Group Number Insured Name Patient Relationship to Insured Coverage Start Date Coverage End Date [facility] [employer] [facility] [address] [address] [place], [place] [id number] BENJAMIN JULIAN RES Self - patient is the insured MEDICAID OF [employer] [address] [place] [address] [id number] BENJAMIN JULIAN RES Self - patient is the insured Medical (General) History Medical History History ICD Code MD with 1 stent--04/2013 at [facility], then a 2nd MD in 01/2021 Denies CVA,renal disease Hyperlipidemia Depression HTN IDDM Asthma Pacemaker in 03/2021 Describes a negative colonoscopy in [place] b efore 2011 Surgical History Surgery Date(Month/Year) Appendectomy Open heart surgery 02/01 Pacemaker 04/03
--- OUTSIDE RECORDS SUMMARY | 2024-08-20 11:45 | XMS_ITS | Clinical Summary ---
Author Organization [facility] Address [address] [address] Care Team Providers Care Farm Machinery Mechanic Name Role Phone Av Gaytan MD Primary Care Provider [phone] Allergies Active Allergy Reactions Criticality Noted Date [...] tablet 2 06/20/2022 Active ergocalciferol 1.25 MG (21403 UT) capsule Take 1 capsule (50,000 Units [...] Date Resolved Date Nocturnal enuresis 09/25/2020 Immunizations Immunization Administration Dates Next Due Influenza, Quadrivalent, Pre [...] Comments Breast Cancer Screening 1960 Pneumococcal Vaccine: 50+ Years (1 of 2 - PCV) 1981 Colorectal Cancer Screening: Annual FOBT 11/05/2011 Colorectal Cancer Screening: Colonoscopy 11/05/2011 Colorectal Cancer Screening: Sigmoidoscopy 11/05/2011 Diabetes: Hemoglobin A1C 05/15/2020 Diabetes: Ophthalmology Exam 05/15/2020 Diabetes: Pedal Pulse Checked 05/15/2020 Diabetes: Sensory Foot Exam 05/15/2020 Diabetes: Visual Foot Exam 05/15/2020 Influenza Vaccine (Season Ended) 2024 03/14/2022, 02/20/2021, 03/07/2020, Additional history exists Hepatitis B Vaccine Aged Out No longe r eligible based on patient's age to complete this topic Insurance [facility] Medicaid Medicaid Care Teams Farm Machinery Mechanic Relationship Specialty Start Date End Date Av Gaytan MD [address] [place] [address] [id number] [place], [place] PCP - General Medical Oncology 11/07/20
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
[2024-08-20 12:04] LABS: Alanine Aminotransferase 29 U/L (0-31); Albumin Level 4.2 g/dL (3.5-5.0); Alkaline Phosphatase 112 U/L (39-117); Anion Gap 11 (12-20); Aspartate Amino Transferase 36 U/L (5-31); Bilirubin Total 0.4 mg/dL (0.0-1.0); Blood Urea Nitrogen 40 mg/dL (9-16); Calcium 10.1 mg/dL (8.4-10.2); Carbon Dioxide 27 mmol/L (22-29); Chloride 102 mmol/L (96-108); Estimated Glomerular Filt Rate 41; Glucose Random 188 mg/dL (60-115); Potassium 5.4 mmol/L (3.3-5.1); Sodium 135 mmol/L (135-145); Total Protein 7.9 g/dL (6.5-8.0)
[2024-08-20 12:21] LABS: Free T4 (Free Thyroxine) 1.01 ng/dL (0.71-1.85); Thyroid Stimulating Hormone 3.28 uIU/mL (0.32-4.0)
== END 2024-08-20 11:17 | disposition home or self-care (01) ==
LOC: HO.XRAY 11:16
PROVIDERS: PCP Internal Medicine Medical Oncology; Visit Provider Internal Medicine Medical Oncology
DX: R22.1 Localized swelling, mass and lump, neck (principal); R07.9 Chest pain, unspecified
CPT/HCPCS: 36415; 71046; 80053; 84439; 84443; 85025; 93005

== ENCOUNTER → 2024-08-20 11:23 | Outpatient (BNV) | payer OTHER, SELFPAY | PROVIDERS: PCP Internal Medicine Medical Oncology; Visit Provider Internal Medicine | DX: R07.9 Chest pain, unspecified (principal); R94.31 Abnormal electrocardiogram [ECG] [EKG] | CPT/HCPCS: 93010 ==

== ENCOUNTER → 2024-08-20 11:45 | Outpatient (BNV) | payer OTHER, SELFPAY | PROVIDERS: PCP Internal Medicine Medical Oncology; Visit Provider Radiology Diagnostic Radiology | DX: R22.2 Localized swelling, mass and lump, trunk (principal) | CPT/HCPCS: 71046 ==

== ENCOUNTER → 2024-08-25 10:53 | Outpatient (REF) | payer OTHER, SELFPAY ==
--- NOTE | 2024-08-25 11:00 | CA_ITS ---
Transthoracic Echocardiogram Patient (Last, First, Middle): Hermila Bernardo, Gender: Female Date of : 1960 Age: 63 Procedure Date: 08/25/2024 Procedure Type: Transthoracic Echocardiogram Location: OP Height: 157.48 cm Weight: 74.84 kg BSA: 1.76 m2 Heart Rate: 70 bpm BP: 118 / 80 mmHg Molder Foam Rubber: JUAN Referring MD: Av Gaytan MD Stage Electrician: Kendall Kelly MD Symptoms: I25.10 CAD I.10 HTN R94.31 ABNORMAL EKG Study Quality: Adequate w contrast ECG Rhythm: Sinus Conclusions: - 1. Severely reduced LV ejection fraction at 25-30% with underlying regional wall motion abnormality consistent with ischemic cardiomyopathy with elevated filling pressures 2. Mildly to moderately reduced RV systolic function 3. Mildly dilated left atrium 4. Mild mitral regurgitation 5. Normal calculated RV systolic pressure 6. No pericardial effusion Findings Procedure Information Contrast agent, definity, is being given per protocol without apparent complications. Left Ventricle Normal left ventricular cavity size. There is normal left ventricular wall thickness. The left ventricular systolic function is severely decreased. The visually estimated ejection fraction is between 25-30%. Spectral Doppler is indicative of an impaired relaxation filling pattern. Elevated left atrial and left ventricular end-diastolic pressures. Wall Motion Rest Echo Findings The inferolateral wall and apical septum segment are hypokinetic. The inferoseptal wall, inferior wall, and apical lateral segment are akinetic. All other scored wall segments showed normal motion. Right Ventricle Normal right ventricular cavity size. There is mild to moderately decreased right ventricular systolic function. There is an ICD wire seen in the right ventricle. Atria The left atrium is mildly dilated. There is no evidence of interatrial shunt. The right atrium is likely dilated. Aortic Valve Normal aortic valve structure and function. There is no aortic valve stenosis. There is no aortic valve regurgitation. Mitral Valve There is mild anterior and posterior mitral leaflet thickening. The posterior mitral leaflet has restricted mobility. There is mild mitral valve regurgitation. There is no mitral valve stenosis. Pulmonic Valve The pulmonic valve is likely normal. Tricuspid Valve Normal tricuspid valve structure. There is mild tricuspid valve regurgitation. The right ventricular systolic pressure is normal. The right ventricular systolic pressure is 32 mmHg. Normal right atrial pressure. There is no evidence of pulmonary hypertension. Great Vessels All visible segments of the aorta are normal in size. The pulmonary artery was not well visualized. There is no dilatation of the ascending aorta measuring 3.40 cm. Venous The inferior vena cava is normal in size and collapses greater than 50% with inspiration. Pericardium/Pleural There is no evidence of pericardial effusion. Prior Study Comparison Changes noted compared to prior study dated: 12/08/2019. LV ejection fraction has marginally improved Measurements 2D Linear Measurements IVSd: 1.05 0.6-0.9/0.6-1.0 cm LVIDd: 4.17 3.9-5.3/4.2-5.9 cm LVIDd Index: 2.37 2.4-3.2/2.2-3.1 cm/m2 LVIDs: 3.21 2.0-3.6 cm LVPWd: 1.15 0.7-1.1 cm LA Diam: 4.00 2.7-3.8/3.0-4.0 cm LAIDs Index: 2.27 1.5-2.3 cm/m2 LV Mass: 193.40 67-162/88-224 g LV Mass Index: 109.89 43-95/49-115 g/m2 LVOT Diam: 2.00 3.0+(-)1.3 cm 2D Systolic Function EF 4C: 31.20 >55% EF 2C: 29.40 >55% EF BiP: 29.60 >55% Mitral Valve MV VTI: 0.39 MV Pk Victor Manuel: 0.97 MV Mn Victor Manuel: 0.62 MV Pk Grad: 4.00 MV Mn Grad: 2.00 MV Pk E: 0.85 MV PK A: 0.84 MV Decel Time: 223.00 E/A: 1.00 E'Lateral: 6.20 E'Medial: 3.81 E/E' Med: 22.40 E/E' Lat: 13.80 PHT: 65.00 MVA PHT: 3.38 MVA Continuity: 1.57 Decel Mercer: 3.83 Aortic Valve AoV Pk Victor Manuel: 1.25 AoV Mn Victor Manuel: 0.91 AoV VTI: 0.31 AoV Pk Grad: 6.00 Aov Mn Grad: 4.00 DIONISIO Cont.VTI: 1.95 LVOT LVOT Pk Victor Manuel: 0.69 LVOT Mn Victor Manuel: 0.52 LVOT VTI: 0.19 LVOT Pk Grad: 2.00 LVOT Mn Grad: 1.00 LVOT Diam: 2.00 LVOT Area: 3.14 Diastolic Function MV Pk E: 0.85 MV Pk A: 0.84 E/A: 1.00 E'Medial: 3.81 E/E' Med: 22.40 E' Laterial: 6.20 E/E' Lat: 13.80 Right Ventricle TAPSE (mm): 14.70 TVS' Victor Manuel: 6.64 Tricuspid Valve TR Pk Victor Manuel: 2.69 TR Pk Grad: 29.00 RA Press: 3.00 RVSP: 32.00 Great Vessels Aorta Sinus of Valsalva: 3.10 2.0-3.5 cm Ao Asc: 3.40 2.1-3.4 cm Ao Arch: 2.80 Updated in Other Vendor System with Status of Final Kendall Kelly MD electronically signed on 08/25/2024 6:26:47 PM with status of Final
--- OUTSIDE RECORDS SUMMARY | 2024-08-25 11:57 | XMS_ITS | Clinical Summary ---
Author Organization [employer] Address [address] [place] [address] Care Team Providers Care Fish Receiver Name Role Phone Unavailable Primary Care Provider [...]
--- OUTSIDE RECORDS SUMMARY | 2024-08-25 11:57 | XMS_ITS ---
Author Organization Av Gaytan III, MD Address [address] [place] [address] Care Team Providers Care Non Morse Intercept Technician Name Role Phone Av Gaytan Primary Care Provider REASON FOR VISIT New Echo Order Social History Sex Assigned At : Social History Observation Description Sex Assigned At Female Encounters Encounter Location Date Provider Diagnosis Av Gaytan III, MD [address] [place] [address] [place] [address] 08/23/2024 Av Gaytan Coronary artery disease I25.10 ; Essential hypertension I10 and Abnormal EKG R94.31 Assessments Encounter Date Diagnosis (ICD Code) Assessment Notes Treat ment Notes Treatment Clinical Notes 08/23/2024 Coronary artery disease (ICD-10 - I25.10) 08/23/2024 Essential hypertension (ICD-10 - I10) 08/23/2024 Abnormal EKG (ICD-10 - R94.31) Plan Of Treatment Pending Test Test Name Order Date Echocardiogram 08/23/2024 Next Appt Details Provider Name:Av Gaytan, 08/25/2024 01:15:00 PM, [address], [place], [address], Provider Name:Av Gaytan, 02/18/2025 01:45:00 PM, [address] [facility] [address], [place], [address], Progress Notes * Hermila BERNARDODOB:[birth year] (63 yo F)Acc No.[id number]:08/23/2024 Patient:?Hermila BERNARDO :1960???Age:63 Y???Sex:Female Address:[address] [place] [address] , [address] [place] Subjective: * Chief Complaints: * ???New Echo Order * Medical History:? * Surgical History:? * Hospitalization/Major Diagno stic Procedure:? * Medications:? Objective: * Vitals:? * Physical Examination:? Assessment: * Assessment: 1.?Coronary artery disease - I25.10???2.?Essential hypertension - I10???3.?Abnormal EKG - R94.31??? Plan: * Treatment: 2.?Essential hypertension?Imaging: Echocardiogram 3.?Abnormal EKG?Imaging: Echocardiogram * Procedure Codes:? * true * Date:? Generated for Cristobal whalen/Law/eTransmitting on:?08/25/2024 11:57 AM EDT
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
--- OUTSIDE RECORDS SUMMARY | 2024-08-25 11:58 | XMS_ITS | Clinical Summary ---
Author Organization [facility] Facility Address [address] [address] Care Team Providers Care Bulk Coolers Installer Name Role Phone Av Gaytan MD Primary Care Provider [phone] Allergies Active Allergy Reactions Criticality Noted Date [...] tablet 2 06/20/2022 Active ergocalciferol 1.25 MG (50558 UT) capsule Take 1 capsule (50,000 Units [...] patient's age to complete this topic Insurance [facility] Medicaid Medicaid Care Teams Bulk Coolers Installer Relationship Specialty Start Date End Date Av Gaytan MD [address] [place] [address] [id number] [place], [place] PCP - General Medical Oncology 11/07/20
--- OUTSIDE RECORDS SUMMARY | 2024-08-25 11:58 | XMS_ITS | Patient Health Record ---
Author Organization [facility] Address [address] [place] [id number] Support Name Relationship Address Phone Benjamin Case Emergency Contact [address] [place] [address] BENJAMIN JIMENEZ Guarantor Unknown Care Team Providers Care Manager Money Name Role Phone Av Gaytan MD Primary Care Provider Av Samayoa Unavailable [phone] Allergies Allergen (clinical drug ingredient) Drug/Non Drug [...] 90 Active Vitamin D (Ergocalciferol) 1.25 MG (74695 UT) TAKE ONE CAPSULE BY MOUTH EVERY [...] Status Risk Notes Problem Colon cancer screening (961296033) Colon cancer screening (Z12.11) Active confirmed Problem Long-term current use of antiplatelet drug (338602573036578 ) 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 (Z79.82) Active confirmed Problem 294179472 Blood in stool (K92.1) Active confirmed Problem Preprocedural examination (650473202731739 ) Preprocedural examination (Z01.818) Active confirmed Problem 610908979 Gastroesophageal reflux disease, esophagitis presence not specified (K21.9) Active confirmed Problem 279023644 Irregular bowel habits (R19.8) Active confirmed Plan Of Treatment Future Test Test Name Order Date COLONOSCOPY 05/02/2015 UPPER GI ENDOSCOPY 08/19/2017 COLONOSCOPY 08/19/2017 COLONOSCOPY 03/20/2022 Insurance Providers Payer Name Payer Address Payer Phone Subscriber Number Group Number Insured Name Patient Relationship to Insured Coverage Start Date Coverage End Date [facility] [employer] [facility] [address] [address] [place], [place] [phone] [id number] BENJAMIN JULIAN RES Self - patient is the insured MEDICAID OF [employer] [address] [place] [address] [id number] BENJAMIN JULIAN RES Self - patient is the insured Medical (General) History Medical History History ICD Code OK with 1 stent--04/2013 at [facility], then a 2nd OK in 01/2021 Denies CVA,renal disease Hyperlipidemia Depression HTN IDDM Asthma Pacemaker in 03/2021 Describes a negative colonoscopy in [place] b efore 2011 Surgical History Surgery Date(Month/Year) Appendectomy Open heart surgery 02/01 Pacemaker 04/03
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
--- OUTSIDE RECORDS SUMMARY | 2024-08-25 11:58 | XMS_ITS | Encounter Summary ---
Author Organization [facility] Address [address] [facility] [address] [place] [address] Phone Care Team Providers Care Build And Release Manager Name Role Phone Av Gaytan MD Primary Care Provider [phone] Reason for Visit * Reason Comments Med Refill Encounter Details Date Type Department Care Team (Late st Contact Info) Description 03/23/2023 Refill [facility] [address] [place] [phone] Fan Carter MD [address] [facility] [address] [place] [phone] Social History Tobacco Use Types Packs/Day Years [...] on filedocumented in this encounter Care Teams Build And Release Manager Relationship Specialty Start Date End Date Av Gaytan MD [address] [facility] [id number] [place] PCP - General Medical Oncology 11/07/20 documented as of this encounter
== END ==
LOC: HO.CARD 10:53
PROVIDERS: PCP Internal Medicine Medical Oncology; Visit Provider Internal Medicine Medical Oncology
DX: I25.10 Atherosclerotic heart disease of native coronary artery without angina pectoris (principal); I10 Essential (primary) hypertension; R94.31 Abnormal electrocardiogram [ECG] [EKG]
CPT/HCPCS: 93306; Q9957

== ENCOUNTER → 2024-08-25 11:00 | Outpatient (BNV) | payer OTHER, SELFPAY | PROVIDERS: PCP Internal Medicine Medical Oncology; Visit Provider Internal Medicine Cardiovascular Disease | DX: I34.0 Nonrheumatic mitral (valve) insufficiency (principal); I51.7 Cardiomegaly; Z95.810 Presence of automatic (implantable) cardiac defibrillator; I36.1 Nonrheumatic tricuspid (valve) insufficiency | CPT/HCPCS: 93306 ==

== ENCOUNTER 2024-09-15 02:34 | Emergency (ER) | payer OTHER, SELFPAY ==
--- NOTE | 2024-09-15 | ECG_ITS ---
Test Reason : WEAKNESS Blood Pressure : */* mmHG Vent. Rate : 79 BPM Atrial Rate : 79 BPM P-R Int : 184 ms QRS Dur : 88 ms QT Int : 372 ms P-R-T Axes : 53 -1 139 degrees QTcB Int : 426 ms Normal sinus rhythm Possible Inferior infarct (cited on or before 20-Aug-2024) ST & T wave abnormality, consider lateral ischemia Abnormal ECG When compared with ECG of 20-Aug-2024 11:25, No significant change was found Referred By: Leticia Siegel Electronically Signed By: ZACHERY OLVERA
--- NOTE | ~2024-09-15 | CT_ITS ---
CLINICAL HISTORY: severe BARKLEY, reocurrent, no hx migraines CT head without contrast Comparison: None Findings: No intra-axial mass, midline shift, hydrocephalus, or acute hemorrhage. Mild global volume loss with subcortical and periventricular white matter hypodensity suggesting chronic microangiopathy. 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 Additional old lacunar infarcts of the bilateral basal ganglia. The visualized paranasal sinuses and mastoid air cells are normal. The orbits are within normal limits. No skull fracture. IMPRESSION: 1. No acute intracranial findings. This document has been electronically signed by: Eleonora Morales MD on 09/15/2024 04:45:53
[2024-09-15 02:46] VITALS: BP 155/75; BP 158/72; PULSE 74; RESP 16; TEMP 36.8; O2SAT 94; O2SAT 96; BMI 33.5
[2024-09-15 02:53] LABS: Glucose, Whole Blood 517 mg/dL (60-115)
[2024-09-15 03:22] VITALS: PULSE 75
[2024-09-15 03:24] VITALS: BP 143/71; PULSE 80
[2024-09-15 03:25] LABS: Basophils Percent Auto 0.3 % (0-2); Eosinophils Absolute Auto 0.1 X10*3/uL (0.0-0.4); Eosinophils Percent Auto 1.3 % (0-4); Hematocrit 36.4 % (37.0-47.0); Hemoglobin 12.5 g/dl (12.0-16.0); Imm Gran Abs Auto 0.03 X10*3/uL (0.00-0.03); Imm Gran Pct Auto 0.3 % (0.0-0.4); Lymphocytes Absolute Auto 1.9 X10*3/uL (1.2-4.9); Lymphocytes Percent Auto 19.9 % (20-40); MANUAL DIFF FLAG NO; Mean Corpuscular HGB Conc 34.3 g/dl (31.0-35.0); Mean Corpuscular Hemoglobin 28.2 pg (27.0-33.0); Mean Platelet Volume 11.6 fL (9.4-12.3); Monocytes Absolute Auto 0.5 X10*3/uL (0.1-1.2); Monocytes Percent Auto 5.6 % (2-11); Neutrophils Percent Auto 72.6 % (45-73); Platelet Count 236 X10*3/uL (160-400); Red Blood Count 4.44 X10*6/uL (4.20-5.50); Red Cell Distribution Width 12.7 % (11.0-16.0); White Blood Count 9.7 X10*3/uL (4.8-10.8)
[2024-09-15 03:30] VITALS: BP 145/80; PULSE 89
--- OUTSIDE RECORDS SUMMARY | 2024-09-15 03:38 | XMS_ITS | Clinical Summary ---
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 Role Phone Unavailable Primary Care Provider [...] 1960 FIT 1962 FOBT 1962 Sigmoidoscopy 1962 Disability Screening 1962 Alcohol/Substance Use Screening 1974 Tobacco Screening 1974 DTaP/Tdap/Td Vaccines (1 - Tdap) 1981 Pap Smear 11/05/1983 Cervical Cancer Screening 1992 HPV/Cotest 1992 Mammogram 2002 Zoster Vaccines (1 of 2) 2012 Pneumococcal Vaccine: 50+ Years (2 of 2 - PCV) 04/21/2014 04/21/2013 COVID-19 Vaccine ( season) 2023 02/28/2021, 11/01/2020, 10/05/2020 Influenza Vaccine (Season Ended) 2024 03/14/2022, 02/20/2021, 03/07/2020, Additional history exists RSV Patients [...] patient's age to complete this topic Meningococcal B Vaccine Aged Out No l onger eligible based on patient's age to complete [...]
[2024-09-15 03:53] LABS: Appearance Urine Cloudy; Color Urine Yellow; Glucose Urine UA >=1000 mg/dL (Negative); Leukocyte Esterase Urine Small (1+) (Negative); Nitrite Urine Negative (Negative); PH 5.5 (5.0-9.0); Specific Gravity - Urine 1.025 (1.005-1.025); Urine Blood Trace (Negative); Urine Ketones Negative (Negative); Urine Protein 100 (2+) mg/dL (Neg-Trace)
[2024-09-15 03:54] LABS: UMIC TRIGGER UACC YES
[2024-09-15 03:54] LABS: Venous Blood Gas Refer to POC result
[2024-09-15] MEDS: Morphine Sulfate 2 MG/ML CARTRIDGE IVPUSH (03:55)
[2024-09-15] MEDS: Metoclopramide HCl 10 MG/2 ML VIAL IVPUSH (03:55)
[2024-09-15] MEDS: 0.9 % Sodium Chloride 1,000 ML 999 ML IVCONT (03:55)
[2024-09-15] MEDS: diphenhydrAMINE HCL 50 MG/ML VIAL 25 MG IVPUSH (03:55)
[2024-09-15 03:56] LABS: VBG Base Excess 1.9 mmol/L; VBG HCO3 27 mmol/L (22-26); VBG pCO2 44 mmHg; VBG pH 7.39 (7.32-7.43); VBG pO2 58 mmHg
[2024-09-15] MEDS: Insulin Regular, Human 100 UNIT/ML 10 ML VIAL 10 UNIT IVPUSH (03:56)
[2024-09-15 03:58] LABS: Bacteria Urine 4+ (None Seen); Hyaline Casts Urine 0-2 /LPF (0-2); RBC Urine 0-2 /HPF (0-2); Squamous Epithelial Cell Urine 0-2 /HPF (0-2); UACC Culture Trigger YES; WBC Urine >50 /HPF (0-5)
[2024-09-15 04:14] LABS: Troponin-I High Sensitivity 13.6 ng/L (<3.5-17.0)
[2024-09-15 04:17] LABS: Alanine Aminotransferase 26 U/L (0-31); Albumin Level 4.3 g/dL (3.5-5.0); Alkaline Phosphatase 149 U/L (39-117); Anion Gap 14 (12-20); Aspartate Amino Transferase 21 U/L (5-31); Beta-Hydroxybutyrate 0.09 mmol/L (0.02-0.27); Bilirubin Total 0.4 mg/dL (0.0-1.0); Blood Urea Nitrogen 37 mg/dL (9-16); Calcium 9.7 mg/dL (8.4-10.2); Carbon Dioxide 24 mmol/L (22-29); Chloride 98 mmol/L (96-108); Creatinine Clr Calc Pharmacy 45.7; Estimated Glomerular Filt Rate 42; Glucose Random 528 mg/dL (60-115); Potassium 5.4 mmol/L (3.3-5.1); Sodium 131 mmol/L (135-145)
--- NOTE | 2024-09-15 04:21 | ED.GENADULT ---
HPI - General Adult General Chief complaint: Dizziness Stated complaint: HEADACHE, DIZZINESS Time Seen by Provider: 09/15/24 02:41 Source: patient and family Mode of arrival: ambulatory Limitations: no limitations History of Present Illness ED Provider: Dr. Leticia Siegel HPI narrative: Patient comes to the emergency room complaining of a headache since yesterday. Patient states that she does not have history of migraine headaches but believes that she may have undiagnosed migraines. Patient states that she has headache both sides of the head. Patient states that she has blurred vision. Patient has been having headaches every 3 days. Patient denies any neck pain or stiffness. Patient denies any URI or UTI symptoms. When patient arrived to the emergency room, patient stated that she was dizzy. When I asked her to explain what dizzy means, patient stated that she had blurred vision. Denies room spinning, denies feeling unsteady, denies near syncopal episode. Related Data Home Medications ?Medication ?Instructions ?Recorded ?Confirmed albuterol sulfate 90 mcg/actuation inhalation 08/07/20 05/24/22 aerosol inhaler aspirin 81 mg chewable tablet 1 tab PO DAILY 08/07/20 05/24/22 atorvastatin 80 mg tablet 80 mg PO DAILY 08/07/20 05/24/22 clopidogrel 75 mg tablet 75 mg PO DAILY 08/07/20 05/24/22 metoprolol succinate 50 mg 50 mg PO DAILY 08/07/20 05/24/22 tablet,extended release 24 hr mirtazapine 30 mg tablet 30 mg PO BEDTIME 08/07/20 05/24/22 spironolactone 25 mg tablet 25 mg PO DAILY 08/07/20 05/24/22 torsemide 20 mg tablet 20 mg PO ONCE PRN 01/05/21 05/24/22 alcohol swabs 0 pad topical diabetes mellitus 05/24/22 05/24/22 blood sugar diagnostic (FreeStyle #10 ea 05/24/22 05/24/22 Lite Strips) blood-glucose meter (FreeStyle #1 ea 05/24/22 05/24/22 Lite Meter kit) flash glucose sensor (FreeStyle #1 ea 05/24/22 05/24/22 Kusum 14 Day Sensor kit) lancets 28 gauge (FreeStyle #100 ea 05/24/22 05/24/22 Lancets) loratadine 10 mg tablet (Allergy 10 mg PO DAILY 05/24/22 05/24/22 Relief (loratadine)) pen needle, diabetic 32 gauge x #50 ea 05/24/22 05/24/22 (Unifine Pentips Plus) dapagliflozin propanediol 10 mg 10 mg PO DAILY 12/10/22 tablet (Farxiga) Previous Rx's ?Medication ?Instructions ?Recorded insulin lispro 100 unit/mL See Rx Instructions subcut TID #15 01/29/21 subcutaneous pen (Humalog KwikPen mL (U-100) Insulin) insulin glargine 100 unit/mL (3 24 unit (0.24 mL) subcut QPM #15 mL 02/28/21 mL) subcutaneous pen (Lantus Solostar U-100 Insulin) gabapentin 100 mg capsule 200 mg (2 x 100 mg) PO BEDTIME #60 05/23/21 caps prednisone 20 mg tablet 40 mg (2 x 20 mg) PO DAILY 5 days 07/10/23 #10 tabs valacyclovir 1 gram tablet 1,000 mg PO TID 7 days #21 tabs 07/10/23 (Valtrex) semaglutide 2 mg/dose (8 mg/3 mL) 2 mg (0.75 mL) subcut QWEEK #3 mL 08/11/23 subcutaneous pen injector (Ozempic) acetaminophen 650 mg 650 mg PO Q8H PRN pain #20 tabs 09/15/24 tablet,extended release Allergies Allergy/AdvReac Type Severity Reaction Status Date / Time iodine [IODINE] Allergy Intermediate PT UNSURE Verified 09/15/24 02:53 latex [LATEX] Allergy Intermediate RASH Verified 09/15/24 02:53 ketorolac Allergy Unknown Unknown Verified 09/15/24 02:53 oxycodone Allergy Unknown Unknown Verified 09/15/24 02:53 From TORADOL Allergy Unknown STOMACH Uncoded 09/15/24 02:53 UPSET Review of Systems Review of Systems: Constitutional : No Weight loss, No Fever, No Chills, No Night Sweats, No Fatigue, No Malaise ENT/Mouth : No Hearing loss, No Ear Pain, No Nasal Congestion, No Sinus Pain, No Hoarseness, No sore throat, No Rhinorrhea, No Swallowing Difficulty Eyes: No Eye Pain, No Swelling, No Redness, No Foreign Body, No Discharge, complaining of blurred vision Cardiovascular : No Chest Pain, No SOB, No Dyspnea on Exertion, No Orthopnea, No Edema, No Palpitations Respiratory : No Cough, No Sputum, No Wheezing, No Smoke Exposure, No Dyspnea Gastrointestinal : No Nausea, No Vomiting, No Diarrhea, No Constipation, No abdominal Pain, No Hematochezia, No Melena Genitourinary : no irregular bleeding, No Dysuria, No Urinary Frequency, No Hematuria, No Urinary Incontinence, No Urgency, No Flank Pain, No Urinary Flow Changes, No Hesitancy Musculoskeletal : No joint pain, No Myalgias, No Joint Swelling Skin : No Skin Lesions, No rash Neuro : No Weakness, No Numbness, No Paresthesias, No Loss of Consciousness, No Dizziness, complaining of a headache Psych : No Anxiety/Panic, No Depression, No SI/HI/AH/VH, No Social Issues, Heme/Lymph: No Bruising, No Bleeding,No Lymphadenopathy Endocrine : No Polyuria, No Polydipsia, No Temperature Intolerance [facility] Past Medical History 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 Diabetes HLD (hyperlipidemia) HTN (hypertension) History of OR (myocardial infarction) (~04/2013) CAD (coronary artery disease) Surgical History S/P CABG (coronary artery bypass graft) Hx of cataract surgery Hx of tonsillectomy Hx of appendectomy Hx of cardiac cath (~11/2019) Family History Family History Father Diabetes Emphysema/COPD Mother CVD (cardiovascular disease) HTN (hypertension) Brother Diabetes Daughter Diabetes Social History Social History Household Members: Family Household Members Other:: grandson Alcohol intake: never Patient Tobacco Use Status: Never used Tobacco Smoked in Last 30 Days: No Use of substances other than those prescribed or required for medical reasons: No Advance Directives: No Do you have a plan to hurt others: No Plan Patient : No Physical Exam ED Vital Signs: Vital Signs - 24 hr 09/15/24 02:46 09/15/24 03:22 09/15/24 03:24 Temperature 98.2 F Pulse Rate 74 75 80 Respiratory Rate 16 Blood Pressure 155/75 H 143/71 H Pulse Oximetry 94 Oxygen Delivery Method Room Air 09/15/24 03:30 Temperature Pulse Rate 89 Respiratory Rate Blood Pressure 145/80 H Pulse Oximetry Oxygen Delivery Method BMI result Body Mass Index 33.5 Const Other: Appearance: Alert. Oriented X3. No acute distress. Eyes: Pupils equal, round and reactive to light. ENT: Pharynx normal. Neck: Normal inspection. Neck supple. No lymph nodes noted. No crepitus CVS: Normal heart rate and rhythm. Pulses normal. Normal S1 and S2 Respiratory: No respiratory distress. Breath sounds normal. No Wheezing. No rales Abdomen: Soft and nontender. No rigidity. No distention. Skin: Skin warm and dry. Normal skin color. Normal skin turgor. Extremities: No lower extremity edema. No Lacerations. No Rash Neuro: Oriented X 3. No motor deficit. No sensory deficit. Moving all extremities. No slurred speech. CN 2 through 12 grossly intact Psych: calm, cooperative, normal affect Course Course Course Narrative: Patient arrived to the ED, patient reported dizziness, however, she reports dizziness as blurred vision. Patient reports new onset of frequent and recurrent headaches. Patient has not taking any medication for it Glucose Point of care is greater than 500. Patient known to be diabetic, uses Humalog and Lantus. Patient states that today she did not take her medication because she was not feeling well and did not eat Patient receiving IV fluids, IV morphine, Reglan, Benadryl, and 10 units of IV insulin. Given patient's new onset of headaches, head CT was ordered Medications Administered Discontinued Medications Generic Name Dose Route Start Last Admin Trade Name Freq PRN Reason Stop Dose Admin Diphenhydramine HCl 25 mg 09/15/24 02:56 09/15/24 03:55 Diphenhydramine Hcl 50 Mg/Ml Vial IVPUSH 09/15/24 02:57 25 mg ONCE ONE Administration Sodium Chloride 1,000 mls @ 999 mls/hr 09/15/24 02:56 09/15/24 03:55 Ns IVCONT 09/15/24 03:56 999 mls/hr .Q1H1M ONE Administration Insulin Human Regular 10 unit 09/15/24 02:56 09/15/24 03:56 Insulin Regular, Human 100 Unit/Ml 10 Ml Vial IVPUSH 09/15/24 02:57 10 unit ONCE ONE Administration Insulin Human Regular 5 unit 09/15/24 05:08 09/15/24 05:21 Insulin Regular, Human 100 Unit/Ml 10 Ml Vial IVPUSH 09/15/24 05:09 5 unit ONCE ONE Administration Metoclopramide HCl 10 mg 09/15/24 02:56 09/15/24 03:55 Metoclopramide Hcl 10 Mg/2 Ml Vial IVPUSH 09/15/24 02:57 10 mg ONCE ONE Administration Morphine Sulfate 2 mg 09/15/24 02:56 09/15/24 03:55 Morphine Sulfate 2 Mg/Ml Cartridge IVPUSH 09/15/24 02:57 2 mg ONCE ONE Administration Protocol Medical Decision Making Medical Decision Making [facility] Narrative: My interpretation of hematology, no significant abnormality in patient's hematology, venous blood gases are fairly normal, normal pH, pCO2 44, bicarb 27, patient's chemistry shows a sodium of 131 however, given the glucose of 128, the corrected sodium is within normal limits. Potassium 5.4, no chest pain or EKG changes. Patient's beta hydroxybutyrate negative, anion gap closed. -patient not in DKA My interpretation of EKG: Normal sinus rhythm, heart rate 79, no ST segment depression or elevation, nonspecific T-wave inversions in V4 through V6, previously seen on other EKGs, QTC [address] does not show any acute abnormalities After a L of fluids and 10 units of insulin, patient's glucose 327, patient received an additional 5 units of insulin Patient states that headache nearly resolved. Patient's vision improved, glucose now in the 200s Differential Diagnosis Differential Diagnoses: The differential diagnosis associated with the presentation includes (Hyperglycemia, DKA, medication noncompliance, migraine headache, tension headache, intracranial abnormality) Admission/Observation Consideration of admission/observation: Escalation of care including admission/observation considered (Given patient's symptoms and medical history, observation was considered) Lab Data [facility] Lab Attestation statement: I reviewed the patient's lab results. 09/15/24 03:19 09/15/24 03:48 Labs: Lab Results 09/15/24 09/15/24 09/15/24 Range/Units 02:48 03:19 03:48 WBC 9.7 (4.8-10.8) X10*3/uL RBC 4.44 (4.20-5.50) X10*6/uL Hgb 12.5 (12.0-16.0) g/dl Hct 36.4 L (37.0-47.0) % MCV 82.0 (80.0-98.0) fL MCH 28.2 (27.0-33.0) pg MCHC 34.3 (31.0-35.0) g/dl RDW 12.7 (11.0-16.0) % Plt Count 236 (160-400) X10*3/uL MPV 11.6 (9.4-12.3) fL Immature Gran % (Auto) 0.3 (0.0-0.4) % Neut % (Auto) 72.6 (45-73) % Lymph % (Auto) 19.9 L (20-40) % [place] % (Auto) 5.6 (2-11) % Eos % (Auto) 1.3 (0-4) % Baso % (Auto) 0.3 (0-2) % Lymph # (Auto) 1.9 (1.2-4.9) X10*3/uL [place] # (Auto) 0.5 (0.1-1.2) X10*3/uL Eos # (Auto) 0.1 (0.0-0.4) X10*3/uL Baso # (Auto) 0.0 (0.0-0.2) X10*3/uL Abs Immat Gran (auto) 0.03 (0.00-0.03) X10*3/uL Absolute Neuts (auto) 7.0 (2.0-8.3) x10*3/uL Absolute Nucleated RBC 0.000 (0.0-0.012) X10*3/uL Nucleated RBC % (auto) 0.0 (0.0-0.2) /100WBC VBG pH (7.32-7.43) VBG pCO2 mmHg VBG pO2 mmHg VBG HCO3 (22-26) mmol/L VBG O2 Saturation % VBG Base Excess mmol/L Sodium 131 L (135-145) mmol/L Potassium 5.4 H (3.3-5.1) mmol/L Chloride 98 (96-108) mmol/L Carbon Dioxide 24 (22-29) mmol/L Anion Gap 14 (12-20) BUN 37 H (9-16) mg/dL Creatinine 1.29 (0.5-1.4) mg/dL Estim Creat Clear Calc 45.7 Estimated GFR 42 POC Glucose 517 H* (60-115) mg/dL Random Glucose 528 H* (60-115) mg/dL Calcium 9.7 (8.4-10.2) mg/dL Total Bilirubin 0.4 (0.0-1.0) mg/dL AST 21 (5-31) U/L ALT 26 (0-31) U/L Alkaline Phosphatase 149 H (39-117) U/L Troponin I High Sens 13.6 (<3.5-17.0) ng/L Total Protein 8.0 (6.5-8.0) g/dL Albumin 4.3 (3.5-5.0) g/dL Beta-Hydroxybutyrate 0.09 (0.02-0.27) mmol/L Urine Color Yellow Urine Appearance Cloudy Urine pH 5.5 (5.0-9.0) Ur Specific [place] 1.025 (1.005-1.025) Urine Protein 100 (2+) H (Neg-Trace) mg/dL Urine Glucose (UA) >=1000 H (Negative) mg/dL Urine Ketones Negative (Negative) mg/dL Urine Blood Trace H (Negative) Urine Nitrite Negative (Negative) Ur Leukocyte Esterase Small (1+) H (Negative) Urine RBC 0-2 (0-2) /HPF Urine WBC >50 H (0-5) /HPF Ur Squamous Epith Cells 0-2 (0-2) /HPF Urine Bacteria 4+ (None Seen) Hyaline Casts 0-2 (0-2) /LPF 09/15/24 09/15/24 Range/Units 03:51 04:41 WBC (4.8-10.8) X10*3/uL RBC (4.20-5.50) X10*6/uL Hgb (12.0-16.0) g/dl Hct (37.0-47.0) % MCV (80.0-98.0) fL MCH (27.0-33.0) pg MCHC (31.0-35.0) g/dl RDW (11.0-16.0) % Plt Count (160-400) X10*3/uL MPV (9.4-12.3) fL Immature Gran % (Auto) (0.0-0.4) % Neut % (Auto) (45-73) % Lymph % (Auto) (20-40) % [place] % (Auto) (2-11) % Eos % (Auto) (0-4) % Baso % (Auto) (0-2) % Lymph # (Auto) (1.2-4.9) X10*3/uL [place] # (Auto) (0.1-1.2) X10*3/uL Eos # (Auto) (0.0-0.4) X10*3/uL Baso # (Auto) (0.0-0.2) X10*3/uL Abs Immat Gran (auto) (0.00-0.03) X10*3/uL Absolute Neuts (auto) (2.0-8.3) x10*3/uL Absolute Nucleated RBC (0.0-0.012) X10*3/uL Nucleated RBC % (auto) (0.0-0.2) /100WBC VBG pH 7.39 (7.32-7.43) VBG pCO2 44 mmHg VBG pO2 58 mmHg VBG HCO3 27 H (22-26) mmol/L VBG O2 Saturation 81.0 % VBG Base Excess 1.9 mmol/L Sodium (135-145) mmol/L Potassium (3.3-5.1) mmol/L Chloride (96-108) mmol/L Carbon Dioxide (22-29) mmol/L Anion Gap (12-20) BUN (9-16) mg/dL Creatinine (0.5-1.4) mg/dL Estim Creat Clear Calc Estimated GFR POC Glucose 327 H (60-115) mg/dL Random Glucose (60-115) mg/dL Calcium (8.4-10.2) mg/dL Total Bilirubin (0.0-1.0) mg/dL AST (5-31) U/L ALT (0-31) U/L Alkaline Phosphatase (39-117) U/L Troponin I High Sens (<3.5-17.0) ng/L Total Protein (6.5-8.0) g/dL Albumin (3.5-5.0) g/dL Beta-Hydroxybutyrate (0.02-0.27) mmol/L Urine Color Urine Appearance Urine pH (5.0-9.0) Ur Specific [place] (1.005-1.025) Urine Protein (Neg-Trace) mg/dL Urine Glucose (UA) (Negative) mg/dL Urine Ketones (Negative) mg/dL Urine Blood (Negative) Urine Nitrite (Negative) Ur Leukocyte Esterase (Negative) Urine RBC (0-2) /HPF Urine WBC (0-5) /HPF Ur Squamous Epith Cells (0-2) /HPF Urine Bacteria (None Seen) Hyaline Casts (0-2) /LPF Independent Interpretation I performed an independent interpretation of an: CT Scan Radiology Impression Discussion of test interpretation with radiology: I have reviewed the radiologist's reading. Radiologist Impression: No intra-axial mass, midline shift, hydrocephalus, or acute hemorrhage. Mild global volume loss with subcortical and periventricular white matter hypodensity suggesting chronic microangiopathy. 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 Additional old lacunar infarcts of the bilateral basal ganglia. The visualized paranasal sinuses and mastoid air cells are normal. The orbits are within normal limits. No skull fracture. IMPRESSION: 1. No acute intracranial findings. Critical Care Time Critical Care Time Critical Care Time: Yes Total Critical Care Time: 60 Attestation: I have personally provided critical care time. Time includes review of lab data, radiology results, discussion with consultants, and monitoring for potential decompensation. Intervention performed as documented. Discharge Plan Discharge Clinical Impression: Acute hyperglycemia, Acute tension headache Patient Disposition: Home, Self-Care Instructions: Acute Headache (ED), Diabetic Hyperglycemia (ED) Additional Instructions: Please follow-up with your primary care physician tomorrow. If you have any worsening or new symptoms, please return to the emergency room or call 911 Prescriptions: New acetaminophen 650 mg tablet extended release 650 mg PO Q8H PRN (Reason: pain) Qty: 20 0RF No Action insulin lispro [Humalog KwikPen Insulin] 100 unit/mL insulin pen See Rx Instructions subcut TID Qty: 15 1RF Rx Instructions: 5 units, + 2 units for bg over 200, + 4 units for bg over 300 subcut 3 times a day; Anayelius Talleyvikramar U-100 Insulin 100 unit/mL (3 mL) insulin pen 24 unit subcut QPM Qty: 15 3RF gabapentin 100 mg capsule 200 mg PO BEDTIME Qty: 60 3RF valacyclovir [Valtrex] 1 gram tablet 1,000 mg PO TID 7 Days Qty: 21 0RF prednisone 20 mg tablet 40 mg PO DAILY 5 Days Qty: 10 0RF aspirin 81 mg tablet,chewable 1 tab PO DAILY spironolactone 25 mg tablet 25 mg PO DAILY clopidogrel 75 mg tablet 75 mg PO DAILY atorvastatin 80 mg tablet 80 mg PO DAILY metoprolol succinate 50 mg tablet extended release 24 hr 50 mg PO DAILY mirtazapine 30 mg tablet 30 mg PO BEDTIME albuterol sulfate 90 mcg/actuation HFA aerosol inhaler inhalation torsemide 20 mg tablet 20 mg PO ONCE PRN (DME) FreeStyle Kusum 14 Day Sensor Kit See Rx Instructions .ROUTE Q2W Qty: 1 Rx Instructions: As directed (DME) lancets [FreeStyle Lancets] 28 gauge misc See Rx Instructions .ROUTE QID Qty: 100 Rx Instructions: As directed 4 times a day (DME) pen needle, diabetic [Unifine Pentips Plus] 32 gauge x 5/32 needle See Rx Instructions .ROUTE QID Qty: 50 Rx Instructions: As directed alcohol swabs Pads, Medicated 0 pad topical (DME) FreeStyle Lite Strips Strip See Rx Instructions .ROUTE QID Qty: 10 Rx Instructions: As directed 4 times a day (DME) blood-glucose meter [FreeStyle Lite Meter] Kit See Rx Instructions .ROUTE .MEDSUPPLY Qty: 1 Rx Instructions: As directed loratadine [Allergy Relief (loratadine)] 10 mg tablet 10 mg PO DAILY Farxiga 10 mg tablet 10 mg PO DAILY Ozempic 2 mg/dose (8 mg/3 mL) pen injector 2 mg subcut QWEEK Qty: 3 5RF Print Language: Pakistani
[2024-09-15 04:46] LABS: Glucose, Whole Blood 327 mg/dL (60-115)
[2024-09-15] MEDS: Insulin Regular, Human 100 UNIT/ML 10 ML VIAL IVPUSH (05:21)
[2024-09-15 05:52] LABS: Glucose, Whole Blood 223 mg/dL (60-115)
[2024-09-15 06:10] VITALS: BP 127/63; PULSE 82; RESP 16; TEMP 36.8; O2SAT 97
[2024-09-15 06:13] VITALS: BP 127/63; PULSE 82; RESP 16; TEMP 36.8; O2SAT 97
== END 2024-09-15 06:15 | disposition home or self-care (01) ==
PROVIDERS: Emergency Provider Emergency Medicine; PCP Internal Medicine Medical Oncology
DX: G44.209 Tension-type headache, unspecified, not intractable (principal); E11.65 Type 2 diabetes mellitus with hyperglycemia; R53.1 Weakness; R42 Dizziness and giddiness; I25.2 Old myocardial infarction; I10 Essential (primary) hypertension; E78.5 Hyperlipidemia, unspecified; Z95.1 Presence of aortocoronary bypass graft; Z95.0 Presence of cardiac pacemaker
CPT/HCPCS: 36415; 70450; 80053; 81001; 82010; 82803; 82947; 84484; 85025; 87086; 87088; 87186; 93005; 96361; 96374; 96375; 96376; 99284; 99285; J1200; J2270; J2765

== ENCOUNTER → 2024-09-15 02:58 | Outpatient (BNV) | payer OTHER, SELFPAY | PROVIDERS: Emergency Provider Emergency Medicine; PCP Internal Medicine Medical Oncology; Visit Provider Radiology Diagnostic Radiology | DX: R90.82 White matter disease, unspecified (principal) | CPT/HCPCS: 70450 ==

== ENCOUNTER → 2024-09-15 03:08 | Outpatient (BNV) | payer OTHER, SELFPAY | PROVIDERS: Emergency Provider Emergency Medicine; PCP Internal Medicine Medical Oncology; Visit Provider Internal Medicine | DX: R94.31 Abnormal electrocardiogram [ECG] [EKG] (principal); R53.1 Weakness | CPT/HCPCS: 93010 ==

== ENCOUNTER 2025-01-23 18:28 | Emergency (ER) | payer OTHER, SELFPAY ==
--- OUTSIDE RECORDS SUMMARY | 2024-10-07 11:39 | XMS_ITS ---
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 Av Gaytan III Primary Care Provider REASON FOR VISIT Rx refill request Medications Medication SIG (Take, Route, Fr equency, Duration) Notes Start Date End Date Status Loperamide HCl 2 MG 1 capsule as needed Oral Four times a day for 10 days 07/13/2021 11/17/2024 Active Social History Sex Assigned At : Social History Observation Description Sex Assigned At Female Encounters Encounter Location Date Provider Diagnosis Av Gaytan III, MD [address] [place] [address] [place] [address] 10/07/2024 Av Gaytan Coronary artery disease I25.10 Assessments Encounter Date Diagnosis (ICD Code) Assessment Notes Treatment Notes Treatment Clinical Notes 10/07/2024 Coronary artery disease (ICD-10 - I25.10) She denies any recent angina or palpitations or syncope. She has been compliant with all of her medications. Plan Of Treatment Medication Medication Name Sig Start Date Stop Date Notes Loperamide HCl 2 MG 1 capsule as needed Oral Four times a day for 10 days 07/13/2021 11/17/2024 Next Appt Details Provider Name:Av Gaytan , 02/18/2025 01:45:00 PM, [address] [place] [address] [address], [place], [address], Progress Notes * Hermila BERNARDODOB:[birth year] (63 yo F)Acc No.[id number]:10/07/2024 Patient: Hermila MAXWELL :1960 A ge:63 Y S ex:Female Address:[address] [place] [address] [place] [address] * Refills Refill Loperamide HCl Capsule, 2 MG, Oral, 40 Capsule, 1 capsule as needed, Four times a day, 10 days, Refills=3 * true * Date: Generated for Cristobal whalen/Law/Darionitting on: 1 07:09 PM EDT
--- OUTSIDE RECORDS SUMMARY | 2024-10-13 10:19 | XMS_ITS ---
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 Av Gaytan III Primary Care Provider [phone] REASON FOR VISIT PA needed for Free style Kusum 3 sensors Social History Sex Assigned At : Social History Observation Description Sex Assigned At Female Encounters Encounter Location Date Provider Diagnosis Av Gaytan III, MD [address] [place] [address] [place] [address] 10/13/2024 Av Gaytan Plan Of Treatment Next Appt Details Provider Name:Av Gaytan , 02/18/2025 01:45:00 PM, [address] [place] [address] , [address], [place], [id number], Progress Notes * Hermila BERNARDODOB:[birth year] (63 yo F)Acc No.[id number]:10/13/2024 Patient: Harshad FAGAN BENJAMIN Hermlia :1960 A ge:63 Y S ex:Female Address:[address] [place] [address] [place] * true * Date: Generated for Cristobal whalen/Law/eTransmitting on: 07:09 PM EDT
--- OUTSIDE RECORDS SUMMARY | 2025-01-04 10:00 | XMS_ITS ---
Author Organization Av Gaytan III, MD Address [address] [place] [address] Care Team Providers Care Missile Mechanic Name Role Phone Dr. Av Gaytan III Primary Care Provider Allergies Allergen (clinical drug ingredient) Drug/Non Drug Allergy documented on EMR Reaction Allergy Type Onset Date Status ketorolac Ketorolac Unknown Drug Allergy Active Latex Gloves Unknown Drug Allergy Acti ve tramadol Tramadol HCl Unknown Drug Allergy Acti ve ketorolac Toradol (uncoded) Unknown Allergy Ac tive REASON FOR VISIT GERD, Coronary artery, Hypertension, Diabetes, Fibromyalgia, Depression, Hearing loss, Obesity Medications Medication SIG (Take, Route, Frequency, Duration) Notes Start Date End Date Status FreeStyle Lancets - USE TO TEST BLOOD [...] to four times a day 07/05/2024 Active Metoprolol Succinate ER 50 MG TAKE ONE TABLET BY MOUTH EVERY DAY Active Vitamin D (Ergocalciferol) 1.25 MG (65675 UT) 1 capsule Orally one every 14 days Active Fexofenadine HCl 60 MG TAKE ONE TABLET B Y MOUTH TWICE A DAY Active Gabapentin 100 MG TAKE TWO CAPSULES BY MOUTH DAILY AT BEDTIME Active BD Pen Needle Parul 2nd Gen 32G X 4 MM USE FOUR TIMES A DAY FOR INSULINS Active Lantus SoloStar 100 UNIT/ML INJECT 24 UNITS SUBCUTANEOUSLY Subcutaneous every evening Activ e Mirtazapine 30 MG 1 tablet Orally at b ed time Active FreeStyle Kusum 14 Day Sensor - as directed In Vitro Check blood sugar 4 times a day Active Fluticasone Propionate 50 MCG/ACT 1 spray in each nostril Nasally Twice a day 02/13/2022 Active Loratadine 10 MG 1 tablet Orally Once a day 2022 Active Loperamide HCl 2 MG 1 capsule as needed Orally Four times a day 07/14/2024 Active Acetaminophen 325 MG 1 tablet as needed for pain and fever Orally every 4 hrs 01/02/2023 Active Farxiga 5 MG TAKE ONE TABLET BY M OUTH EVERY DAY Oral Active Trulicity 1.5 MG/0.5ML as directed Subcu taneous Once a week Active HumaLOG KwikPen 100 UNIT/ML as directed Subcutaneous INJECT UP TO 5 UNITS THREE TIMES A DAY (2 UNITS FOR BLOOD GLUCOSE OVER 200, 4 UNITS FOR BLOOD GLUCOSE OVER 300) Active ProAir HFA 108 (90 Base) MCG/ACT 2 puff as needed Inhalation every 4 hrs as needed for Wheezing Active Entresto 97-103 MG TAKE ONE TABLET BY M OUTH TWICE A DAY Oral Active FreeStyle Kusum 3 Sensor - USE DIRECT ED TO CHECK BLOOD SUGAR FOUR TIMES A DAY Active Alcohol Prep - USE DIRECTED TO C HECK BLOOD SUGAR UP TO 6 TIMES PER DAY Active Aspirin 81 MG 1 capsule Orally [...] BLOOD GLUCOSE FOUR TIMES A DAY Active Social History Tobacco Use: Social History Observation Description Date Details (start date - stop date) Never Smoker NA - NA Sex Assigned At : Social History Observation Description Sex Assigned At Female Tobacco Use/Smoking Question Answer Notes Patient is a nonsmoker Additional Findings: Tobacco Non-User Aggressive non-smoker Vital Signs Temperature 98.3 degrees Fahrenheit 01/05/20 25 Blood pressure systolic 130 mm Hg 01/05/20 25 Blood pressure diastolic 75 mm Hg 025 Heart Rate 70 /min 01/04/2025 Height 62 in 01/04/2025 Weight 168 lbs 01/04/2025 BMI 30.72 kg/m2 01/04/2025 Encounters Encounter Location Date Provider Diagnosis Av Gaytan III, MD [address] [place] [address] [place] [address] 01/04/2025 Av Gaytan Obesity (BMI 30.0-34 .9) E66.9 ; Coronary artery disease I25.10 ; Depression F32.9 ; Carpal tunnel syndrome of right wrist G56.01 ; Mild left ventricular systolic dysfunction I51.9 ; GERD (gastroesophageal reflux disease) K21.9 ; Fibromyalgia M79.7 ; Essential hypertension I10 ; Diabetes mellitus E11.9 ; Hyperlipidemia, unspecified hyperlipidemia type E78.5 ; Osteoporosis M81.0 ; Herpes zoster without complication B02.9 and Hearing loss H91.90 Assessments Encounter Date Diagnosis (ICD Code) Assessment Notes Treat ment Notes Treatment Clinical Notes 01/04/2025 Obesity (BMI 30.0-34.9) (ICD-10 - E66.9) She has lost 3 pounds and her body mass index is 30. I recommended aggressive weight loss and sodium restriction combined with a strict diabetic diet. 01/04/2025 Coronary artery disease (ICD-10 - I25.10) She denies any recent angina or palpitations or syncope. She has been compliant with all of her medications. 01/04/2025 Depression (ICD-10 - F32.9) She continues to grieve the loss of her daughter. The depression component is mild and no change in her therapies indicated. It is gradually improving with time. She is completing all of the activities of daily living without impairment. 01/04/2025 Carpal tunnel syndrome of right wrist (ICD-10 - G56.01) There has been no change in this problem. 01/04/2025 Mild left ventricula r systolic dysfunction (ICD-10 - I51.9) She feels short of breath only with prolonged exertion. At rest she is free of any symptoms. Frequent follow-up was arranged. 01/04/2025 GERD (gastroesophageal reflux disease) (ICD-10 - K21.9) Her reflux symptoms are well-controlled with ienp-fqm-krvkxej medication. 01/04/2025 Fibromyalgia (ICD-10 - M79.7) Fibromyalgia has become a background of daily living. It seems to impair her ability to conduct daily life. There has been no change in the pattern of the discomfort. 01/04/2025 Essential hypertension (ICD-10 - I10) Her blood pressure is stable. She has been compliant with her medication. I recommended aggressive weight loss and sodium restriction. No change in her medication is necessary. 01/04/2025 Diabetes mellitus (ICD-10 - E11.9) She needs better control of her diabetes. I have discussed her diet and nutrition with her at length today. We discussed physical activity. We reviewed her medications. If he does not lose weight and she'll better control her medications will be adjusted. A close follow-up visit was arranged. 01/04/2025 Hyperlipidemia, unspecified hyperlipidemia type (ICD-10 - E78.5) Her current fasting lipid profile shows good control of her lipids. No change in her regimen was made. 01/04/2025 Osteoporosis (ICD-10 - M81.0) She will Continue on the calciumSupplements. 01/04/2025 Herpes zoster withou t complication (ICD-10 - B02.9) The episode from month ago has resolved leaving only a few red eldridge on her neck. 01/04/2025 Hearing loss (ICD-10 - H91.90) She reports that her hearing loss is stable and no changes have occurred in the acuity. Plan Of Treatment Medication Medication Name Sig Start Date Stop Date Notes FreeStyle Lancets - USE TO TEST BLOOD MIX GAR FOUR TIMES A DAY Insulin Lispro (1 Unit Dial) 100 UNIT/ML INJECT UP TO 5 UNITS UNDER THE SKIN THREE TIMES A DAY (2 UNITS FOR GLUCOSE OVER 200, 4 UNITS FOR GLUCOSE OVER 300) FreeStyle Kusum 3 Plus Senso r - as directed 07/05/2024 Metoprolol Succinate ER 50 MG TAKE ONE T ABLET BY MOUTH EVERY DAY Vitamin D (Ergocalciferol) 1.25 MG (45751 UT) 1 capsule Orally one every 14 days Fexofenadine HCl 60 MG TAKE ONE TABLET B Y MOUTH TWICE A DAY Gabapentin 100 MG TAKE TWO CAPSULES BY MOUTH DAILY AT BEDTIME BD Pen Needle Parul 2nd Gen 32G X 4 MM USE FOUR TIMES A DAY FOR INSULINS Lantus SoloStar 100 UNIT/ML INJECT 24 UN ITS SUBCUTANEOUSLY Subcutaneous every evening Mirtazapine 30 MG 1 tablet Orally at bed time FreeStyle Kusum 14 Day Senso r - as directed In Vitro Check blood sugar 4 times a day Fluticasone Propionate 50 MCG/ACT 1 spray in each nostril Nasally Twice a day 02/13/2022 Loratadine 10 MG 1 tablet Orally Once a day 06/28/2022 Loperamide HCl 2 MG 1 capsule as needed Orally Four times a day 07/14/2024 Acetaminophen 325 MG 1 tablet as needed for pain and fever Orally every 4 hrs 01/02/2023 Farxiga 5 MG TAKE ONE TABLET BY M OUTH EVERY DAY Oral Trulicity 1.5 MG/0.5ML as directed Subcu taneous Once a week HumaLOG KwikPen 100 UNIT/ML as directed Subcutaneous INJECT UP TO 5 UNITS THREE TIMES A DAY (2 UNITS FOR BLOOD GLUCOSE OVER 200, 4 UNITS FOR BLOOD GLUCOSE OVER 300) ProAir HFA 108 (90 Base) MCG/ACT 2 puff as needed Inhalation every 4 hrs as needed for Wheezing Entresto 97-103 MG TAKE ONE TABLET BY M OUTH TWICE A DAY Oral FreeStyle Kusum 3 Sensor - USE DIRECT ED TO CHECK BLOOD SUGAR FOUR TIMES A DAY Alcohol Prep - USE DIRECTED TO Yuri PARRISHK BLOOD SUGAR UP TO 6 TIMES PER DAY Aspirin 81 MG 1 capsule Orally Once [...] TEST BLOOD GLUCOSE FOUR TIMES A DAY Pending Test Test Name Order Date PROFILE, FASTING (COMPREHENSIVE METABOLI C) 01/04/2025 CBC w DIFF 01/04/2025 Lipid Panel 01/04/2025 Microalbumin, Random 01/04/2025 Hemoglobin A1c 01/04/2025 Next Appt Details Follow Up: As Scheduled, Jaci son: Annual Exam Provider Name:Av Gaytan , 02/18/2025 01:45:00 PM, [address] [place] [address] , [place] [address], [place], [address], Progress Notes * Hermila BERNARDODOB:[birth year] (64 yo F)Acc No.[id number]:01/04/2025 Progress Notes Patient: Harshad FAGAN Hermila BENJAMIN Provider: Loree Gaytan MD :1960 A ge:64 Y S ex:Female Date:01/04/2025 Address:[address] [place] [address] , [place], [id number] Subjective: * Chief Complaints: * G ERDCoronary arteryHypertensionDiabetesFibromyalgiaDepressionHearing lossObesity * HPI: C OVID-19 Screening: S he returns for medical management. Her depression is well controlled and she has had no exertional chest pain or angina or palpitations since her last visit. She says her breathing is comfortable at rest and with exertion and with lying down. Her esophageal reflux symptoms have resolved. She had a Dexacillin since on the surface of her left upper arm. Yet, she says she is not testing her glucose values. She was unable to give me data about the control of her hyperglycemia. Comprehensive blood work with a hemoglobin A1c was ordered. Questions H ave you had any new onset fever, chills, cough, congestion, sore throat, shortness of breath, muscle aches? N o * ROS: G eneral/Constitutional: pain o nly normal aches and pains. C hills d enies.?Fatigue a dmits. F ever d enies. E NT: Decreased hearing d enies. R espiratory: Cough d enies. C ardiovascular: Chest pain with exertion d enies. D yspnea on exertion?with prolonged activity. S hortness of breath w ith exertion. G astrointestinal: Constipation o ccasional. D ecreased appetite d enies. D iarrhea d enies. H eartburn c ontrolled with medications. N ausea d enies. R ectal bleeding d enies. V omiting d enies. H ematology: bruising d enies. p etechiae d enies. S wollen glands n one have been noted. G enitourinary: Frequent urination d enies. M usculoskeletal: Muscle aches d enies. P ainful joints d enies. S ciatica d enies. W eakness d enies. S kin: Itching d enies. R rangel d enies. S kin lesion(s)?denies. N eurologic: Difficulty speaking d enies. D izziness d enies.?Headache d enies. L ow back pain d enies. P sychiatric: Depressed mood w hich is mild. * Medical History: * Surgical History: a petra tenorio had surgery 1999appendectomy 1994neck surgery T&A osteoarthritis left knee [place] [facility] [place] history Pacemaker installation * Hospitalization/Major Diagno stic Procedure: B [facility] acute inferior wall myocardial infarction with stent implantation occluded RCA 04/18/2013cute lower extremity pain 12/2017No history * Family History: F ather: , Type 2 diabetes mellitus, emphysema. M other: , Hypertension.?Daughter(s): . 1 daughter(s) . . A maternal aunt had uterine cancer. A maternal aunt had breast cancer. Her maternal grandmother, father and sister have type II diabetes mellitus. Grandson has diabetes and hidradenitis suppurativa. * Social History: T obacco Use: T obacco Use/Smoking P atient is a n onsmoker A dditional Findings: Tobacco Non-User A ggressive non-smoker S he was born in [place]. She is currently unemployed. She has a daughter Reginald who is on renal dialysis awaiting a renal transplant at the [facility] in [place], [place]. She does not smoke cigarettes or drink alcohol to excess. She does not take any illegal drugs. The patient lives in [place] and walks for half an hour to an hour daily. * Medications: T akingGabapentin 100 MG Capsule TAKE TWO CAPSULES BY MOUTH DAILY AT BEDTIME Fexofenadine HCl 60 MG Tablet TAKE ONE TABLET BY MOUTH TWICE A DAY FreeStyle Kusum 3 Plus Sensor - Miscellaneous as directed use to check blood sugars up to four times a dayInsulin Lispro (1 Unit Dial) 100 UNIT/ML Solution Pen-injector INJECT UP TO 5 UNITS UNDER THE SKIN THREE TIMES A DAY (2 UNITS FOR GLUCOSE OVER 200, 4 UNITS FOR GLUCOSE OVER 300) FreeStyle Lancets - Miscellaneous USE TO TEST BLOOD SUGAR FOUR TIMES A DAY Vitamin D (Ergocalciferol) 1.25 MG (35064 UT) Capsule 1 capsule Orally one every [...] UP TO 6 TIMES PER DAY FreeStyle Kusum 3 Sensor - Miscellaneous USE DIRECTED TO CHECK BLOOD SUGAR FOUR TIMES A DAY Allergy Relief 10 MG Tablet TAKE ONE [...] Tablet 1 tablet Orally Once a day Acetaminophen 325 MG Tablet 1 tablet as needed for pain and fever Orally every 4 hrs Loperamide HCl 2 MG Capsule 1 capsule as needed Orally Four times a day BD Pen Needle Parul 2nd Gen 32G X 4 MM Miscellaneous USE FOUR TIMES A DAY FOR INSULINS Lantus SoloStar 100 UNIT/ML Solution Pen-injector INJECT 24 UNITS SUBCUTANEOUSLY Subcutaneous every evening Mirtazapine 30 MG Tablet 1 tablet Orally at bed time Medication List reviewed and reconciled with the patientTaking Gabapentin 100 MG Capsule TAKE TWO CAPSULES BY MOUTH DAILY AT BEDTIME Taking Fexofenadine HCl 60 MG Tablet TAKE ONE TABLET BY MOUTH TWICE A DAY Taking FreeStyle Kusum 3 Plus Sensor - Miscellaneous as directed use to check blood sugars up to four times a dayTaking Insulin Lispro (1 Unit Dial) 100 UNIT/ML Solution Pen-injector INJECT UP TO 5 UNITS UNDER THE SKIN THREE TIMES A DAY (2 UNITS FOR GLUCOSE OVER 200, 4 UNITS FOR GLUCOSE OVER 300) Taking FreeStyle Lancets - Miscellaneous USE TO TEST BLOOD SUGAR FOUR TIMES A DAY Taking Vitamin D (Ergocalciferol) 1.25 MG (32432 UT) Capsule 1 capsule Orally one every [...] UP TO 6 TIMES PER DAY Taking FreeStyle Kusum 3 Sensor - Miscellaneous USE DIRECTED TO CHECK BLOOD SUGAR FOUR TIMES A DAY Taking Allergy Relief 10 MG Tablet TAKE [...] 1 tablet Orally Once a day Taking Acetaminophen 325 MG Tablet 1 tablet as needed for pain and fever Orally every 4 hrs Taking Loperamide HCl 2 MG Capsule 1 capsule as needed Orally Four times a day Taking BD Pen Needle Parul 2nd Gen 32G X 4 MM Miscellaneous USE FOUR TIMES A DAY FOR INSULINS Taking Lantus SoloStar 100 UNIT/ML Solution Pen-injector INJECT 24 UNITS SUBCUTANEOUSLY Subcutaneous every evening Taking Mirtazapine 30 MG Tablet 1 tablet Orally at bed time Medication List reviewed and reconciled with the patient * Allergies: L atex GlovesTramadol HClKetorolacToradolno[Allergies Verified] Objective: * Vitals: H t: 62, Wt: 168, BMI:30.72, BP: 130/75, HR: 70, Temp: 98.3, Ht-cm: 157.48, Wt-k.2. * Examination: G eneral Examination: GENERAL APPEARANCE: p leasant, well nourished, well developed, in no acute distress, calm and relaxed: obese: woman. HEAD: a traumatic, normocephalic. EYES: e manuelito, perrla, anicteric, conjugate. EARS: n ormal. NOSE: s eptum intact. ORAL CAVITY: n ormal, unremarkable. NECK/THYROID: n o jugular venous distention, no carotid bruit, thyroid normal. LYMPH NODES: n o enlarged lymph nodes,spleen normal. SKIN: n o suspicious lesions, anicteric. HEART: n o clicks, gallops, murmurs, or rubs, regular rhythm, S1, S2 normal, no s3, or vascular bruits, Old sternotomy scar. LUNGS: c lear to auscultation, Soft tissue in the supraclavicular areas is full and puffy with no palpable abnormality, no crepitus, no neck vein distention.? BREASTS: no masses palpable bilaterally. ABDOMEN: b owel sounds normal, no ascites, no organomegaly, no mass: centripital obesity. RECTAL EXAM: n ot examined. MUSCULOSKELETAL: e xtremities unremarkable, no clubbing, cyanosis or edema. PERIPHERAL PULSES: n ormal. NEUROLOGIC: a lert and oriented, cranial nerves 2-12 grossly intact, deep tendon reflexes 2+ symmetrical, motor strength normal upper and lower extremities, sensory exam intact. PSYCH: a lert, oriented. Assessment: * Assessment: 1. C oronary artery disease - I25.10 (Primary) N otes :She denies any recent angina or palpitations or syncope. She has been compliant with all of her medications. 2 . O besity (BMI 30.0-34.9) - E66.9 N otes :She has lost 3 pounds and her body mass index is 30. I recommended aggressive weight loss and sodium restriction combined with a strict diabetic diet. 3 . D epression - F32.9 N otes :She continues to grieve the loss of her daughter. The depression component is mild and no change in her therapies indicated. It is gradually improving with time. She is completing all of the activities of daily living without impairment. 4 . C arpal tunnel syndrome of right wrist - G56.01 N otes :There has been no change in this problem. 5 . M ild left ventricular systolic dysfunction - I51.9 N otes :She feels short of breath only with prolonged exertion. At rest she is free of any symptoms. Frequent follow-up was arranged. 6 . G ERD (gastroesophageal reflux disease) - K21.9 N otes :Her reflux symptoms are well-controlled with oxee-suw-rdnaxkt medication. 7 . F ibromyalgia - M79.7 N otes :Fibromyalgia has become a background of daily living. It seems to impair her ability to conduct daily life. There has been no change in the pattern of the discomfort. 8 . E ssential hypertension - I10 N otes :Her blood pressure is stable. She has been compliant with her medication. I recommended aggressive weight loss and sodium restriction. No change in her medication is necessary. 9 . D iabetes mellitus - E11.9 N otes :She needs better control of her diabetes. I have discussed her diet and nutrition with her at length today. We discussed physical activity. We reviewed her medications. If he does not lose weight and she'll better control her medications will be adjusted. A close follow-up visit was arranged. 1 0. H yperlipidemia, unspecified hyperlipidemia type - E78.5 N otes :Her current fasting lipid profile shows good control of her lipids. No change in her regimen was made. 1 1. O steoporosis - M81.0 N otes :She will Continue on the calciumSupplements. 1 2. H erpes zoster without complication - B02.9 N otes :The episode from month ago has resolved leaving only a few red eldridge on her neck. 1 3. H earing loss - H91.90 N otes :She reports that her hearing loss is stable and no changes have occurred in the acuity. Plan: * Treatment: * Labs: * L ab: PROFILE, FASTING (COMPREHENSIVE METABOLIC) L ab: CBC w DIFF L ab: Lipid Panel L ab: Microalbumin, Random L ab: Hemoglobin A1c * Procedure Codes: * Preventive Medicine: Counseling: C are goal follow-up plan: Counseling for abnormal BMI given Y es Above Normal BMI Follow-up D ietary management education, guidance, and counseling, Dietary needs education, Exercise promotion: strength training, Exercise promotion: stretching, Feeding regime, Giving encouragement to exercise, Lifestyle education regarding diet, Nutrition / feeding management, Nutrition therapy, Prescribed activity/exercise education, Prescribed diet education, Prescribed dietary intake, Special diet education, Weight monitoring , Intervention, Order not done: Medical or Other reason not done DM Care Plan: P atient Lifestyle Goals P atient wants to be able to manage diabetes without too much effort. T reatment Goals B lood Sugars less than < 115, HbA1C < 7.0. B arriers n o barriers. S elf-Managment Goals W ork on weight loss, with a goal of losing 1 lb per week. * Follow Up: A s Scheduled (Reason: Annual Exam) * Images: * Sign off status: Completed true * Provider: Loree Gaytan MD Date: 0 01/04/2025 Generated for Cristobal whalen/Law/Darionitting on: 1 07:10 PM EDT History and Physical Notes * HPI (History of Present Illness) Category Sub-Category Detail Notes COVID-19 Screening Questions Have you had any new onset fever, chills, cough, congestion, sore throat, shortness of breath, muscle aches?: No Examination Category Sub-Category Detail Notes General Examination GENERAL APPEARANCE: pleasant , well nourished, well developed, in no acute distress, calm and relaxed: obese: woman HEAD: atraumatic, normocep halic EYES: eomi, perrla, anicte madelaine, conjugate EARS: normal NOSE: septum intact NECK/THYROID: no jugular venous di stention, no carotid bruit, thyroid normal HEART: no clicks, gallops, murmurs, or rubs, regular rhythm, S1, S2 normal, no s3, or vascular bruits, Old sternotomy scar LUNGS: clear to auscultatio n, Soft tissue in the supraclavicular areas is full and puffy with no palpable abnormality, no crepitus, no neck vein distention ABDOMEN: bowel sounds normal, no ascites, no organomegaly, no mass: centripital obesity NEUROLOGIC: alert and oriented, cranial nerves 2-12 [...]
--- OUTSIDE RECORDS SUMMARY | 2025-01-17 05:42 | XMS_ITS ---
Author Organization Av Gaytan III, MD Address [address] [place] [address] Care Team Providers Care Liberal Arts And Humanities Chair Name Role Phone Dr. Av Gaytan III Primary Care Provider [phone] REASON FOR VISIT Message Social History Sex Assigned At : Social History Observation Description Sex Assigned At Female Encounters Encounter Location Date Provider Diagnosis Av Gaytan III, MD [address] [place] [address] [place] [address] 01/17/2025 Av Gaytan Plan Of Treatment Next Appt Details Provider Name:Av Gaytan , 02/18/2025 01:45:00 PM, [address] [place] [address] [place], [place], [address], Progress Notes * Hermila BERNARDODOB:[birth year] (64 yo F)Acc No.[id number]:01/17/2025 Patient: Harshad FAGAN Hermila BENJAMIN :1960 A ge:64 Y S ex:Female Address:[address] [place] [address] [place] * true * Date: Generated for Cristobal whalen/Law/eTransmitting on: 07:10 PM EDT
--- OUTSIDE RECORDS SUMMARY | 2025-01-19 10:50 | XMS_ITS ---
Author Organization Av Gaytan III, MD Address [address] [place] [address] Care Team Providers Care Merchandise Pickup/Receiving Associate Name Role Phone Dr. Av Gaytan III Primary Care Provider [phone] REASON FOR VISIT [employer] Form Social History Sex Assigned At : Social History Observation Description Sex Assigned At Female Encounters Encounter Location Date Provider Diagnosis Av Gaytan III, MD [address] [place] [address] [place] [address] 01/19/2025 Av Gaytan Plan Of Treatment Next Appt Details Provider Name:Av Gaytan , 02/18/2025 01:45:00 PM, [address] [place], [place], [address], Progress Notes * Hermila BERNARDODOB:[birth year] (64 yo F)Acc No.[id number]:01/19/2025 Patient: Harshad FAGAN Hermila BENJAMIN :1960 A ge:64 Y S ex:Female Address:[address] [place] [address] [place] * true * Date: Generated for Cristobal whalen/Law/eTransmitting on: 1 07:09 PM EDT
--- NOTE | ~2025-01-23 | XR_ITS ---
CLINICAL HISTORY: fall pain 3 view right shoulder Comparison: None provided Findings: Bones intact. No dislocations. No significant loss of joint space or osteophytes. No erosions. No radiopaque foreign body. IMPRESSION: 1. No acute findings This document has been electronically signed by: Sanna Hinojosa MD on 01/23/2025 19:59:58
--- NOTE | ~2025-01-23 | CT_ITS ---
CLINICAL HISTORY: fall CT Brain without contrast Comparison: CT/SR - CT HEAD/BRAIN WO IV CON - 09/15/24 04:04 EDT FINDINGS: Cortical sulci: There is diffuse prominence of the cortical sulci compatible with age-related atrophy. Ventricles: Normal for age Brain parenchyma: There is patchy lucency throughout the deep white matter indicating chronic microvascular leukomalacia. Lacunar infarcts of the basal ganglia and in the rut. Extra axial spaces: Normal Posterior Fossa: Normal Extracranial soft tissues: Normal Additional abnormality: None IMPRESSION: Age-related atrophy with chronic microvascular leukomalacia. No hemorrhage, mass effect, or acute findings identified. This document has been electronically signed by: Sanna Hinojosa MD on 01/23/2025 20:44:58
--- NOTE | ~2025-01-23 | CT_ITS ---
CLINICAL HISTORY: fall CT cervical spine without contrast Comparison: None provided Findings: Vertebral alignment is within normal limits. There is degenerative change. No acute fractures or dislocations. No acute findings on limited view of the intracranial contents. Atherosclerosis calcification of the carotid bulbs Lung apices are clear. IMPRESSION: No acute findings. This document has been electronically signed by: Sanna Hinojosa MD on 01/23/2025 20:50:29
[2025-01-23 18:32] VITALS: BP 117/71; BP 150/90; PULSE 93; PULSE 96; RESP 14; TEMP 36.5; O2SAT 95; O2SAT 99; BMI 25.4
--- OUTSIDE RECORDS SUMMARY | 2025-01-23 19:09 | XMS_ITS | Clinical Summary ---
Author Organization [employer] Address [address] [place] [address] Care Team Providers Care Frame Maker Name Role Phone Unavailable Primary Care Provider [...] - PCV) 04/21/2014 04/21/2013 COVID-19 Vaccine ( - season) 2024 02/28/2021, 11/01/2020, 10/05/2020 Influenza Vaccine (#1) 2024 , 02/20/2021, 03/07/2020, Additional history exists RSV Patients [...]
--- OUTSIDE RECORDS SUMMARY | 2025-01-23 19:09 | XMS_ITS | Patient Health Record ---
Author Organization [facility] Address [address] [place] [address] Support Name Relationship Address Phone Benjamin Case Emergency Contact [address] [place] [address] BENJAMIN JIMENEZ Guarantor Unknown [phone] Care Team Providers Care Cloth Picker Name Role Phone Av Gaytan MD Primary Care Provider Av Samayoa Unavailable [phone] Allergies Allergen (clinical drug ingredient) Drug/Non Drug Allergy documented on EMR Reaction Allergy Type Onset Date Status temsirolimus Torisel Unknown Drug Allergy Acti ve Reason For Referral No Information Medications Medication SIG (Take, Route, Frequency, Duration) Notes Start Date End Date Status Fluticasone Propionate 50 MCG/ACT INSTILL 1 SPRAY INTO EACH NOSTRIL TWICE A DAY. Nasal; Duration: 30 Active FreeStyle Kusum 14 Day Sensor - USE ONE SENSOR DIRECTED EVERY 14 DAYS; Duration: 28 Active Torsemide 20 MG TAKE ONE TABLET ONLY FOR WEIGHT GAIN > 5 POUNDS OR LEG SWELLING NEEDED Oral; Duration: 30 Active Alcohol Swabs - USE DIRECTED TO C HECK BLOOD SUGAR UP TO 6 TIMES A DAY; Duration: 30 Active Farxiga 5 MG TAKE ONE TABLET BY M OUTH EVERY DAY Oral; Duration: 90 Active Atorvastatin Calcium Active Aspir-81 Active Baclofen Active Lantus SoloStar 100 UNIT/ML INJECT 24 UNITS SUBCUTANEOUSLY ONCE A DAY IN THE EVENING DIRECTED Subcutaneous; Duration: 60 Active Venlafaxine HCl ER A ctive Gabapentin 100 MG TAKE TWO CAPSULES BY MOUTH AT BEDTIME Oral; Duration: 30 Active CareOne Unifine Pentips Plus 32G X 4 MM USE DIRECTED FOUR TIMES A DAY FOR INSULINS; Duration: 30 Active Aspirin 81 MG CHEW AND SWALLOW ONE TABLET BY MOUTH EVERY DAY Oral; Duration: 30 Active Mirtazapine 30 MG TAKE ONE TABLET BY M OUTH AT BEDTIME Oral; Duration: 30 Active Spironolactone 25 MG TAKE ONE TABLET BY MOUTH EVERY DAY Oral; Duration: 30 Active Effient Not-Taking Clopidogrel Bisulfate 75 MG TAKE ONE TABLET BY MOUTH EVERY DAY Oral; Duration: 30 Active Metoprolol Succinate ER 50 MG TAKE ONE TABLET BY MOUTH EVERY DAY Oral; Duration: 30 Active FreeStyle Lancets - USE DIRECTED TO C HECK BLOOD SUGAR 4 TIMES PER DAY; Duration: 30 Active Insulin Lispro (1 Unit Dial) 100 UNIT/ML INJECT INSULIN UNDER THE SKIN THREE TIMES A DAY BASED ON BLOOD SUGAR. INJECT 2 UNITS IF SUGAR IS OVER 200, 4 UNITS IF OVER 300. MAX OF 5 UNI Subcutaneous; Duration: 90 Active MiraLax (colon prep) 17 GM/SCOOP 1 238Gm bottle mixed with Gatorade or Crystal Light Orally begin at 5:00 p.m. the day before the procedure; Duration: 1 day 03/20/2022 Active Dulcolax (colon prep) 5 MG take at 3:00 p.m and 7:00p.m. Orally two tablets twice a day for one day; Duration: 1 day 03/20/2022 Active Entresto 97-103 MG TAKE ONE TABLET BY M OUTH TWICE A DAY Oral; Duration: 90 Active Vitamin D (Ergocalciferol) 1.25 MG (22024 UT) TAKE ONE CAPSULE BY MOUTH EVERY 14 DAYS Oral; Duration: 84 Active HumaLOG 100 UNIT/ML Subcutaneous Active Lantus 100 UNIT/ML Subcutaneous Active Trulicity 1.5 MG/0.5ML INJECT ONE PEN UN LO THE SKIN ONCE A WEEK DIRECTED. Subcutaneous; Duration: 28 Active Dulcolax (colon prep) 5 MG take at 3:00 p.m and 7:00p.m. Orally two tablets twice a day for one day; Duration: 1 day 08/21/2017 Active MiraLax (colon prep) 8.3 ounce ((238) grams mixed with Gatorade or Crystal Light orally begin at 5:00 p.m. the day before the procedure; Duration: 1 day 08/21/2017 Active Losartan Potassium A ctive Metoprolol Tartrate Active Immunizations Vaccine Route Administration Date Status Comme nts Influenza Unknown 03/14/2022 Administered Problems Problem Type SNOMED Code ICD Code Onset Dates Problem Status W/U Status Risk Notes Problem Colon cancer screening (317606661) Colon cancer screening (Z12.11) Active confirmed Problem Long-term current use of antiplatelet drug (418570535592238) [facility] (current) use of aspirin (Z79.82) Active confirmed Problem Blood in stool (093207725) Blood in stool (K92.1) Active confirmed Problem Preprocedural examination (351811233839052) Preprocedural examination (Z01.818) Active confirmed Problem Gastroesophageal reflux disease (132909219) Gastroesophageal reflux disease, esophagitis presence not specified (K21.9) Active confirmed Problem Irregular bowel habits (307035745) Irregular bowel habits (R19.8) Active confirmed Plan Of Treatment Future Test Test Name Order Date COLONOSCOPY 05/02/2015 UPPER GI ENDOSCOPY 08/19/2017 COLONOSCOPY 08/19/2017 COLONOSCOPY 03/20/2022 Insurance Providers Payer Name Payer Address Payer Phone Subscriber Number Group Number Insured Name Patient Relationship to Insured Coverage Start Date Coverage End Date [facility] [address] [address] [place], [place] [id number] BENJAMIN JULIAN RES Self - patient is the insured MEDICAID OF [facility] [address] [place] [address] [id number] BENJAMIN JULIAN RES Self - patient is the insured Medical (General) History Medical History History ICD Code [place] with 1 stent--04/2013 at [facility], then a 2nd [place] in 01/2021 Denies CVA,renal disease Hyperlipidemia Depression HTN IDDM Asthma Pacemaker in 03/2021 Describes a negative colonoscopy in [place] b efore 2011 Surgical History Surgery Date(Month/Year) Appendectomy Open heart surgery 02/01 Pacemaker 04/03
--- OUTSIDE RECORDS SUMMARY | 2025-01-23 19:10 | XMS_ITS | Patient Health Record ---
Author Organization Av Gaytan III, MD Address [address] [place] [address] Care Team Providers Care Wine Steward Name Role Phone Dr. Av Gaytan III Primary Care Provider [phone] Allergies Allergen (clinical drug ingredient) Drug/Non Drug Allergy documented on EMR Reaction Allergy Type Onset Date Status ketorolac Ketorolac Unknown Drug Allergy Active Latex Gloves Unknown Drug Allergy Acti ve tramadol Tramadol HCl Unknown Drug Allergy Acti ve ketorolac Toradol (uncoded) Unknown Allergy Ac tive Results Component Value Reference Range Notes Lipid Panel Reviewed date:05/19/2024 11:51:09 AM Interpretation: Performing Lab:[address] [address] Notes/Report: Triglycerides 236 <150 mg/dL Desirable Triglyceride: [...] Random Reviewed date:05/19/2024 11:51:09 AM Interpretation: Performing Lab:[facility], [address] [place] [address] Notes/Report: Creatinine Urine 84.18 Microalbumin Urine 699.0 Microalbum/Creatinine Ratio Ur 830.3 <30 ug/mg cr Albumin/Creatinine Ratio Reference Ranges: Normal: < 30 ug/mg creatinine Microalbuminuria: 30 - 300 ug/mg creatinine Clinical Albuminuria: > 300 ug/mg creatinine Hemoglobin A1c Reviewed date:05/19/2024 11:51:09 AM Interpretation: Performing Lab:[address] [address] Notes/Report: Hemoglobin A1c % 7.5 <6.0 % [...] average glucose, using the formula of the [id number]-[id number] Average Glucose study (ADAG), Diabetes Care, Vol.31,#8, Nov. 2007 Free T4 (Free Thyroxine) Reviewed date:10/03/2024 05:41:37 PM Interpretation: Performing Lab:[facility], [address] [place] [address] Notes/Report: Free T4 (Free Thyroxine) 1.01 0.71-1.85 ng/dL Complete Blood Count Auto Di ff Reviewed date:05/19/2024 11:51:09 AM Interpretation: Performing Lab:[facility], [address] [place] [address] Notes/Report: White Blood Count 9.8 4.8-10.8 X10*3/uL [...] NRBC Abs Auto 0.000 0.0-0.012 X10*3/uL Comprehensive [place]. Panel Fa st Reviewed date:05/19/2024 11:51:09 AM Interpretation: Performing Lab:[facility], [address] [place] [address] Notes/Report: Sodium 139 135-145 mmol/L Potassium 4.8 [...] U/L Complete Blood Count Auto Di ff Reviewed date:10/03/2024 05:41:37 PM Interpretation: Performing Lab:[facility], [address] [place] [address] Notes/Report: White Blood Count 11.2 4.8-10.8 X10*3/uL [...] Auto 0.000 0.0-0.012 X10*3/uL Comprehensive Met. Panel Reviewed date:10/03/2024 05:41:37 PM Interpretation: Performing Lab:[address] [address] Notes/Report: Sodium 135 135-145 mmol/L Potassium 5.4 [...] Phosphatase 112 39-117 U/L Thyroid Stimulating Hormone Reviewed date:10/03/2024 05:41:37 PM Interpretation: Performing Lab:[address] [address] Notes/Report: Thyroid Stimulating Hormone 3.28 0.32-4.0 uIU/mL Note: A sustained TSH level above 2.5 uIU/mL may warrant further investigation. TSH 3rd Generation ([facility]) XR chest 2V Reviewed date:10/03/2024 05:41:37 PM Interpretation: Performing Lab: Notes/Report: [address] [address] XRay Report Signed Patient: Hermila Bernardo MR#: [id number] : 1960 Acct:[id number] Age/Sex: 63 / F ADM Date: 08/20/24 Loc: RIKY Attending Dr: Av Gaytan MD Ordering Physician: Av Gaytan MD Date of Service: 08/20/24 Procedure(s): XR chest 2V Accession Number(s): [id number] cc: Av Gaytan MD EXAMINATION: XR CHEST [...] MD 08/20/2024 11:59 AM EDT Dictated By: Cohlo Naidu MD Signed By: <Electronically signed by Cholo Long MD in OV> 08/20/24 1159 DD/ 1145 TD/TT: 08/20/24 1152 Milking System Installer: [address] [address] XRay Report Signed Patient: Hermila Bernardo MR#: [id number] : 1960 Acct:[id number] Age/Sex: 63 / F ADM Date: 08/20/24 Loc: RIKY Attending Dr: Av Gaytan MD Ordering Physician: Av Gaytan MD Date of Service: 08/20/24 Procedure(s): XR chest 2V Accession Number(s): [id number] cc: Av Gaytan MD EXAMINATION: XR CHEST [...] Cholo Rome MD 08/20/2024 11:59 AM EDT RP Dictated By: Cholo Joshi MD Signed By: <Electronically signed by Cholo Long MD in OV> 08/20/24 1159 DD/ 1145 TD/TT: 08/20/24 1152 Milking System Installer: Glucose, Whole Blood Reviewed date:10/03/2024 05:41:37 PM Interpretation: Performing Lab:[facility], [address] [place] [address] Notes/Report: Glucose, Whole Blood 327 60-115 mg/dL METER # : [id number] Urine Culture Reviewed date:10/03/2024 05:41:37 PM Interpretation: Performing Lab:[facility], [address] [place] [address] Notes/Report: O:ESCCOL Escherichia coli Urine Culture Quant Urine Culture > 100,000 cfu/mL Ampicillin 8 Cefazolin (Urine) 2 Cefepime <=0.12 Ceftriaxone <=0.25 Ciprofloxacin <=0.06 Gentamicin <=1 Nitrofurantoin <=16 Trimethoprim/Sulfamethox azole <=20 UA ClnCatch+Micro w/rflx Cul t Reviewed date:10/03/2024 05:41:37 PM Interpretation: Performing Lab:[facility], [address] [place] [address] Notes/Report: [id number] Urine, Clean Catch Color Urine Yellow Appearance Urine Cloudy PH 5.5 5.0-9.0 Glucose Urine UA >=1000 Negative mg/dL Urine Blood Trace Negative Specific [place] - Urine 1.025 1.005-1.025 Urine Protein 100 (2+) Neg-Trace mg/dL Urine Ketones Negative Negative mg/dL Nitrite Urine Negative Negative Leukocyte Esterase Urine Small (1+) Negative RBC Urine 0-2 0-2 /HPF WBC Urine >50 0-5 /HPF Squamous Epithelial Cell Urine 0-2 0-2 /HPF Bacteria Urine 4+ None Seen Hyaline Casts Urine 0-2 0-2 /LPF Venous Blood Gases - POC Reviewed date:10/03/2024 05:41:37 PM Interpretation: Performing Lab:[facility], [address] [place] [address] Notes/Report: VBG pH 7.39 7.32-7.43 METER #: [id number] additional_comment: CB DELGADJ VBG pCO2 44 METER #: [id number] additional_comment: CB DELGADJ VBG pO2 58 METER #: [id number] additional_comment: CB DELGADJ VBG Base Excess 1.9 METER #: [id number] additional_comment: CB DELGADJ VBG HCO3 27 22-26 mmol/L METER #: [id number] additional_comment: CB DELGADJ VBG O2 % Saturation 81.0 METER #: [id number] additional_comment: CB RUBÉNGADJ CT head/brain wo con Reviewed date:10/03/2024 05:41:37 PM Interpretation: Performing Lab: Notes/Report: [address] [address] [address] Scan Report Signed Patient: Hermila Bernardo MR#: [id number] : 1960 Acct:[id number] Age/Sex: 63 / F ADM Date: 09/15/24 Loc: HO.ED Attending Dr: Ordering Physician: Leticia Siegel MD Date of Service: 09/15/24 Procedure(s): CT head/brain wo IV con Accession Number(s): [id number] cc: Av Gaytan MD; Leticia Siegel MD Report Number: [id number]: Total DLP = 647.00 mGy-cm CLINICAL HISTORY: severe [place], reocurrent, no hx migraines CT head without contrast Comparison: None Findings: No intra-axial mass, midline shift, hydrocephalus, or acute hemorrhage. Mild global volume loss with subcortical and periventricular white matter hypodensity suggesting chronic microangiopathy. 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 Additional old lacunar infarcts of the bilateral basal ganglia. The visualized paranasal sinuses and mastoid air cells are normal. The orbits are within normal limits. No skull fracture. IMPRESSION: 1. No acute intracranial findings. This document has been electronically signed by: Eleonora Morales MD on 09/15/2024 04:45:53 Dictated By: Eleonora Morales MD Signed By: <Electronically signed by Eleonora Morales MD in OV> 09/15/244[address] DD/ 4 TD/TT: 09/15/24444 Milking System Installer: [place] [address] CT Scan Report Signed Patient: Hermila Bernardo MR#: [id number] : 1960 Acct:[id number] Age/Sex: 63 / F ADM Date: 09/15/24 Loc: HO.ED Attending Dr: Ordering Physician: Leticia Siegel MD Date of Service: 09/15/24 Procedure(s): CT head/brain wo IV con Accession Number(s): [id number] cc: Av Gaytan MD; Leticia Siegel MD Report Number: [id number]: Total DLP = 647.00 mGy-cm CLINICAL HISTORY: se robin [place], reocurrent, no hx migraines CT head without contrast Comparison: None Findings: No intra-axial mass, midline shift, hydrocephalus, or acute hemorrhage. Mild global volume l oss with subcortical and periventricular white matter hypodensity suggesti ng chronic microangiopathy. 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 Additional old lacunar infarcts of the bilateral basal ganglia. The visualized paran oanh sinuses and mastoid air cells are normal. The orbits are withi n normal limits. No skull fracture. IMPRESSION: 1. No acute intracra nial findings. This document has be en electronically signed by: Eleonora Morales MD on 09/15/2024 04:45:53 Dictated By: Eleonora Morales MD Signed By: <Electronically signed by Eleonora Morales MD in OV> 09/15/24445 DD/ 4 TD/TT: 09/15/24444 Milking System Installer: Glucose, Whole Blood Reviewed date:10/03/2024 05:41:37 PM Interpretation: Performing Lab:[facility], [address] [place] [address] Notes/Report: Glucose, Whole Blood 223 60-115 mg/dL METER # : [id number] Reason For Referral Reason Evaluate and Treat Chronic rhinorrhea Hearing loss Diagnosis 1 Hearing loss (H91.90 ) Diagnosis 2 Rhinorrhea (J34.89) Referral Organization Av Gaytan III, MD Referring Provider First Name Av Referring Provider Last Name Lukas Referring Provider Speciality Internal edicine Referred Provider [facility], [facility] Referred Provider Specialty Otolaryngolo gy General Notes D, Ina 05/03/2024 11:25:04 AM > Cover sheet, referral and progress note faxed. Referral Priority Routine Referral Appointment Date 01/03/2025 Reason Re-Evaluate and My t Abnormal Echocardiogram Diagnosis 1 Coronary artery dise ase (I25.10) Diagnosis 2 Right coronary arter y occlusion (I21.11) Diagnosis 3 Mild left ventricula r systolic dysfunction (I51.9) Referral Organization Av Gaytan III, MD Referring Provider First Name Av Referring Provider Last Name Lukas Referring Provider Speciality Internal edicine Referred Organization [facility] Referred Address [address] [place] [phone], Referred Provider Specialty Cardiology General Notes D, Ina 10/01/2024 01:28:45 PM > Contacted [facility], patient has an appointment scheduled for 10/19/2024 @ 12:15pm with Dr. Wallace. Was advised to fax over echocardiogram to [phone] ATTN: Dr. Wallace Referral Priority Routine Referral Appointment Date 10/19/2024 Medications Medication SIG (Take, Route, Frequency, Duration) Notes Start Date End Date Status Fexofenadine HCl 60 MG TAKE ONE TABLET B Y MOUTH TWICE A DAY Active Gabapentin 100 MG TAKE TWO CAPSULES BY MOUTH DAILY AT BEDTIME Active BD Pen Needle Parul 2nd Gen 32G X 4 MM USE FOUR TIMES A DAY FOR INSULINS Active FreeStyle Kusum 14 Day Sensor - as directed In Vitro Check blood sugar 4 times a day Active Lantus SoloStar 100 UNIT/ML INJECT 24 UNITS SUBCUTANEOUSLY Subcutaneous every evening Activ e Fluticasone Propionate 50 MCG/ACT 1 spray in each nostril Nasally Twice a day 02/13/2022 Active Farxiga 5 MG TAKE ONE TABLET BY M OUTH EVERY DAY Oral Active Aspirin 81 MG 1 capsule Orally Onc e a day Active FreeStyle Lite w/Device as directed Chec k blood glucose 4 times a day 03/20/2022 Active Allergy Relief 10 MG TAKE ONE TABLET BY MOUTH EVERY DAY Active Mirtazapine 30 MG 1 tablet Orally at b ed time Active Trulicity 1.5 MG/0.5ML as directed Subcu [...] 1 tablet Orally Once a day Active Loratadine 10 MG 1 [...] to four times a day 07/05/2024 Active Loperamide HCl 2 MG 1 capsule as needed Orally Four times a day 07/14/2024 Active Acetaminophen 325 MG 1 tablet as needed for pain and fever Orally every 4 hrs 01/02/2023 Active Spironolactone 25 MG TAKE ONE TABLET BY MOUTH EVERY DAY Active FreeStyle Lite Test - USE TO TEST BLOOD GLUCOSE FOUR TIMES A DAY Active Metoprolol Succinate ER 50 MG TAKE ONE TABLET BY MOUTH EVERY DAY Active Vitamin D (Ergocalciferol) 1.25 MG (50405 UT) 1 capsule Orally one every 14 days Active Immunizations Vaccine Route Administration Date Status [...] Problem Status W/U Status Risk Notes Problem [id number] Asthma (J45.909) Active confirmed She has had no recent wheezing. She was breathing room air comfortably today. No change in her regimen is needed.Her examination today showed clear lungs Problem 51654546 Fibromyalgia (M79.7) Active confirmed Fibromyalgia has become a background of daily living. It seems to impair her ability to conduct daily life. There has been no change in the pattern of the discomfort. Problem 958472987 Overweight (E66.3) Active confirmed Her body mass index is 29. She has lost 3 pounds. She will continue her efforts at weight loss. Problem 90603817 Depression (F32.9) Active confirmed She continues to grieve the loss of her daughter. The depression component is mild and no change in her therapies indicated. It is gradually improving with time. She is completing all of the activities of daily living without impairment. Problem 880707624545901 Obesity (BMI 30.0-34.9) (E66.9) Active confirmed She has lost 3 pounds and her body mass index is 30. I recommended aggressive weight loss and sodium restriction combined with a strict diabetic diet. Problem 31921389 Diabetes mellitus (E11.9) Active confirmed She needs better control of her diabetes. I have discussed her diet and nutrition with her at length today. We discussed physical activity. We reviewed her medications. If he does not lose weight and she'll better control her medications will be adjusted. A close follow-up visit was arranged. Problem 411315003 GERD (gastroesophage al reflux disease) (K21.9) Active confirmed Her reflux symptoms are well-controlled with abuv-azs-qknttk r medication. Problem 43885409 Coronary artery disease (I25.10) Active confirmed She denies any recent angina or palpitations or syncope. She has been compliant with all of her medications. Problem 36524528 Essential hypertension (I10) Active confirmed Her blood pressure is stable. She has been compliant with her medication. I recommended aggressive weight loss and sodium restriction. No change in her medication is necessary. Problem Osteoporosis (14911190) Osteoporosis (M81.0) Active confirmed She will Continue on the calciumSuppleme nts. Problem Environmental allergy (381061732) Environmental allergies (Z91.09) Active confirmed We have discussed the use of nondrowsy antihistamines at length today. Problem Hearing loss (63872887) Hearing loss (H91.90) Active confirmed She reports that her hearing loss is stable and no changes have occurred in the acuity. Problem 67893275 Carpal tunnel syndrome of right wrist (G56.01) Active confirmed There has been no change in this problem. Problem 789470742 Right coronary artery occlusion (I21.11) Active confirmed She has occasional angina relieved with rest and nitroglycerin. Problem 226908884525 Mild left ventricular systolic dysfunction (I51.9) Active confirmed She feels short of breath only with prolonged exertion. At rest she is free of any symptoms. Frequent follow-up was arranged. Problem 429799123 Herpes zoster without complication (B02.9) Active confirmed The episode from month ago has resolved leaving only a few red eldridge on her neck. Problem Seasonal allergy (394420264) Seasonal allergies (J30.2) Active confirmed Problem Hyperlipidaemia (44442742) Hyperlipidemia, unspecified hyperlipidemia type (E78.5) Active confirmed Her current fasting lipid profile shows good control of her lipids. No change in her regimen was made. Problem 189852459 Soft tissue swelling (R22.9) Active confirmed She describes the puffiness is worse. She was given an appointment to come to the office sooner she could arrange transportation. She seems to be stable without dyspnea. Examination on her last visit was not consistent with subcutaneous emphysema. Vital Signs Heart Rate 70 /min 01/04/2025 Temperature 98.3 degrees Fahrenheit 01/04/2025 Oximetry 98 % 10/01/2024 Blood pressure diastolic 75 mm Hg 01/04/2025 Height 62 in 01/04/2025 Blood pressure systolic 130 mm Hg 01/04/2025 Weight 168 lbs 01/04/2025 BMI 30.72 kg/m2 01/04/2025 Encounters Encounter Location Date Provider Diagnosis Av Gaytan III, MD [address] [place] [address] [place] [address] 02/17/2024 Av Gaytan Essential hypertensi on I10 ; Coronary artery disease I25.10 ; Diabetes mellitus E11.9 ; Hyperlipidemia, unspecified hyperlipidemia type E78.5 ; Depression F32.9 ; Asthma J45.909 ; GERD (gastroesophageal reflux disease) K21.9 and Osteoporosis M81.0 Av Gaytan III, MD [address] [place] [address] [place] [address] 04/29/2024 Av Gaytan Hyperlipidemia, unspecified hyperlipidemia type E78.5 ; Acute bronchitis due to other specified organisms J20.8 ; Coronary artery disease I25.10 ; Essential hypertension I10 ; Depression F32.9 and Asthma J45.909 Av Gaytan III, MD [address] [place] [address] [place] [address] 05/19/2024 Av Gaytan Essential hypertensi on I10 ; Diabetes mellitus E11.9 ; Obesity (BMI 30.0-34.9) E66.9 ; Hyperlipidemia, unspecified hyperlipidemia type E78.5 ; Coronary artery disease I25.10 ; Depression F32.9 ; Asthma J45.909 and Osteoporosis M81.0 Av Gaytan III, MD [address] [place] [address] [place] [address] 07/14/2024 Av Gaytan Infectious gastroenteritis A09 ; Depression F32.9 ; Asthma J45.909 ; Coronary artery disease I25.10 ; Fibromyalgia M79.7 ; Essential hypertension I10 and Osteoporosis M81.0 Av Gaytan III, MD [address] [place] [address] [place] [address] 08/20/2024 Av Gaytan Superficial localize d swelling R22.9 ; Depression F32.9 ; Asthma J45.909 ; Carpal tunnel syndrome of right wrist G56.01 ; Coronary artery disease I25.10 ; Diabetes mellitus E11.9 ; Osteoporosis M81.0 ; Right coronary artery occlusion I21.11 ; GERD (gastroesophageal reflux disease) K21.9 ; Fibromyalgia M79.7 ; Essential hypertension I10 and Obesity (BMI 30.0-34.9) E66.9 Av Gaytan III, MD [address] [place] [address] [address] [place] [address] 08/25/2024 Av Gaytan Soft tissue swelling R22.9 ; Depression F32.9 ; Asthma J45.909 ; Coronary artery disease I25.10 ; Right coronary artery occlusion I21.11 ; Essential hypertension I10 ; Fibromyalgia M79.7 ; Diabetes mellitus E11.9 ; Osteoporosis M81.0 and Hyperlipidemia, unspecified hyperlipidemia type E78.5 Av Gaytan III, MD [address] [place] [address] [place] [address] 08/27/2024 Av Gaytan Soft tissue swelling R22.9 ; Obesity (BMI 30.0-34.9) E66.9 ; Hearing loss H91.90 ; Environmental allergies Z91.09 ; Osteoporosis M81.0 ; Essential hypertension I10 ; Fibromyalgia M79.7 ; Mild left ventricular systolic dysfunction I51.9 ; Coronary artery disease I25.10 and Asthma J45.909 Av Gaytan III, MD [address] [place] [address] [address] [place] [address] 10/01/2024 Av Gaytan Hyperlipidemia, unspecified hyperlipidemia type E78.5 ; Coronary artery disease I25.10 ; Diabetes mellitus E11.9 ; Obesity (BMI 30.0-34.9) E66.9 ; Depression F32.9 ; Asthma J45.909 ; Carpal tunnel syndrome of right wrist G56.01 ; Essential hypertension I10 ; Hearing loss H91.90 and Osteoporosis M81.0 Av Gaytan III, MD [address] [place] [address] 01/04/2025 Av Gaytan Obesity (BMI 30.0-34 .9) [...] without complication B02.9 and Hearing loss H91.90 Av Gaytan III, MD [address] [place] [address] [place] [address] 02/13/2024 Av Gaytan III, MD [address] [place] [address] [place] [address] 03/09/2024 Av Gaytan III, MD [address] [place] [address] [place] [address] 03/23/2024 Av Gaytan Essential hypertensi on I10 Av Gaytan III, MD [address] [place] [address] [place] [address] 06/15/2024 Av Gaytan III, MD [address] [place] [address] [place] [address] 06/15/2024 Av Gaytan III, MD [address] [place] [address] [place] [address] 06/29/2024 Av Gaytan III, MD [address] [place] [address] [place] [address] 08/23/2024 Av Gaytan Coronary artery dise ase I25.10 ; Essential hypertension I10 and Abnormal EKG R94.31 Av Gaytan III, MD [address] [place] [address] [place] [address] 10/07/2024 Av Gaytan Coronary artery dise ase I25.10 Av Gaytan III, MD [address] [place] [address] [place] [address] 10/13/2024 Av Gaytan III, MD [address] [place] [address] [place] [address] 01/17/2025 Av Gaytan III, MD [address] [place] [address] [address] [place] [address] 01/19/2025 Av Gaytan Assessments Encounter Date Diagnosis (ICD Code) Assessment Notes T reatment Notes Treatment Clinical Notes 02/17/2024 Coronary artery disease (ICD-10 - I25.10) [...] feels like fluid. No adenopathy is noted 08/25/2024 Depression (ICD-10 - F32.9) She continues to grieve the loss of her daughter. The depression component is mild and no change in her therapies indicated. It is gradually improving with time. She is completing all of the activities of daily living without impairment. 08/25/2024 Soft tissue swelling (ICD-10 - R22.9) Both supraclavicular fossae have been described as partially. The skin is unremarkable. There appears to be subcutaneous swelling. The skin he is not edematous. The cause of this is unclear. I do not notice cutaneous crepitus. Her chest x-ray was unremarkable. Further diagnostic tests will be done. 08/27/2024 Obesity (BMI 30.0-34.9) (ICD-10 - E66.9) Her body mass index is 30. We discussed a strategy to continue her weight loss until the body mass index is in the normal range. 08/27/2024 Soft tissue swelling (ICD-10 - R22.9) She describes the puffiness is worse. She was given an appointment to come to the office sooner she could arrange transportation. She seems to be stable without dyspnea. Examination on her last visit was not consistent with subcutaneous emphysema. 10/01/2024 Coronary artery disease (ICD-10 - I25.10) She denies any recent angina or palpitations or syncope. She has been compliant with all of her medications. 10/01/2024 Hyperlipidemia, unspecified hyperlipidemia type (ICD-10 - E78.5) Her current fasting lipid profile shows good control of her lipids. No change in her regimen was made. 01/04/2025 Obesity (BMI 30.0-34.9) (ICD-10 - E66.9) She has lost 3 pounds and her body mass index is 30. I recommended aggressive weight loss and sodium restriction combined with a strict diabetic diet. 01/04/2025 Coronary artery disease (ICD-10 - I25.10) She denies any recent angina or palpitations or syncope. She has been compliant with all of her medications. 03/23/2024 Essential hypertension (ICD-10 - I10) Her blood pressure today is 125/63. She has been compliant with her medication. I recommended aggressive weight loss and sodium restriction. No change in her medication is necessary. 08/23/2024 Coronary artery disease (ICD-10 - I25.10) 10/07/2024 Coronary artery disease (ICD-10 - I25.10) She denies any recent angina or palpitations or syncope. She has been compliant with all of her medications. 02/17/2024 Diabetes mellitus (ICD-10 - E11.9) No [...] is needed.Her examination today showed clear lungs 08/25/2024 Asthma (ICD-10 - J45.909) She has had no recent wheezing. She was breathing room air comfortably today. No change in her regimen is needed.Her examination today showed clear lungs 08/27/2024 Hearing loss (ICD-10 - H91.90) She reports that her hearing loss is stable and no changes have occurred in the acuity. 10/01/2024 Diabetes mellitus (ICD-10 - E11.9) She needs better control of her diabetes. I have discussed her diet and nutrition with her at length today. We discussed physical activity. We reviewed her medications. If he does not lose weight and she'll better control her medications will be adjusted. A close follow-up visit was arranged. 01/04/2025 Depression (ICD-10 - F32.9) She continues to grieve the loss of her daughter. The depression component is mild and no change in her therapies indicated. It is gradually improving with time. She is completing all of the activities of daily living without impairment. 08/23/2024 Essential hypertension (ICD-10 - I10) 02/17/2024 Hyperlipidemia, unspecified hyperlipidemia type (ICD-10 - [...] has been no change in this problem. 08/25/2024 Coronary artery disease (ICD-10 - I25.10) She denies any recent angina or palpitations or syncope. She has been compliant with all of her medications. 08/27/2024 Environmental allergies (ICD-10 - Z91.09) We have discussed the use of nondrowsy antihistamines at length today. 10/01/2024 Obesity (BMI 30.0-34.9) (ICD-10 - E66.9) She has gained 2 pounds and her body mass index is 31. I recommended aggressive weight loss and sodium restriction combined with a strict diabetic diet. 01/04/2025 Carpal tunnel syndrome of right wrist (ICD-10 - G56.01) There has been no change in this problem. 08/23/2024 Abnormal EKG (ICD-10 - R94.31) 02/17/2024 Depression (ICD-10 - F32.9) She continues [...] been compliant with all of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
--- NOTE | 2025-01-23 19:19 | PC.NURSE ---
this rn assumed care of pt, pt resting in stretcher awaiting scans at this time. pt reports increased neck pain and right shoulder pain
[2025-01-23 19:55] VITALS: BP 137/73; PULSE 81; RESP 19; TEMP 36.4; O2SAT 93
--- NOTE | 2025-01-23 20:28 | PC.NURSE ---
pt medicated per jun, tolerated whole well with water
--- NOTE | 2025-01-23 20:35 | PC.NURSE ---
pt stated to this rn that no one is answering her questions at this time, this rn asked pt if i could answer he questions and pt stated nevermind i dont care just make my TV work this is why i go to [facility] . GORDON ibrahim
--- NOTE | 2025-01-23 20:49 | ED.GENADULT ---
HPI - General Adult General Chief complaint: Fall Stated complaint: Fall Time Seen by Provider: 01/23/25 20:15 Source: patient Limitations: no limitations History of Present Illness ED Provider: Karen Swann PA-C HPI narrative: 64-year-old female with a history of hypertension, hyperlipidemia, diabetes, coronary artery disease status post cardiac catheterization, status post CABG, status post pacemaker, who presents after fall. Patient sustained a witnessed fall, she slipped on the floor, landing on her back, there was no head strike no loss consciousness. Patient complains of right shoulder pain and neck pain. Patient refused C-collar on route. Related Data Home Medications ?Medication ?Instructions ?Recorded ?Confirmed albuterol sulfate 90 mcg/actuation inhalation 08/07/20 05/24/22 aerosol inhaler aspirin 81 mg chewable tablet 1 tab PO DAILY 08/07/20 05/24/22 atorvastatin 80 mg tablet 80 mg PO DAILY 08/07/20 05/24/22 clopidogrel 75 mg tablet 75 mg PO DAILY 08/07/20 05/24/22 metoprolol succinate 50 mg 50 mg PO DAILY 08/07/20 05/24/22 tablet,extended release 24 hr mirtazapine 30 mg tablet 30 mg PO BEDTIME 08/07/20 05/24/22 spironolactone 25 mg tablet 25 mg PO DAILY 08/07/20 05/24/22 torsemide 20 mg tablet 20 mg PO ONCE PRN 01/05/21 05/24/22 alcohol swabs 0 pad topical diabetes mellitus 05/24/22 05/24/22 blood sugar diagnostic (FreeStyle #10 ea 05/24/22 05/24/22 Lite Strips) blood-glucose meter (FreeStyle #1 ea 05/24/22 05/24/22 Lite Meter kit) flash glucose sensor (FreeStyle #1 ea 05/24/22 05/24/22 Kusum 14 Day Sensor kit) lancets 28 gauge (FreeStyle #100 ea 05/24/22 05/24/22 Lancets) loratadine 10 mg tablet (Allergy 10 mg PO DAILY 05/24/22 05/24/22 Relief (loratadine)) pen needle, diabetic 32 gauge x #50 ea 05/24/22 05/24/22 (Unifine Pentips Plus) dapagliflozin propanediol 10 mg 10 mg PO DAILY 12/10/22 tablet (Farxiga) Previous Rx's ?Medication ?Instructions ?Recorded insulin lispro 100 unit/mL See Rx Instructions subcut TID #15 01/29/21 subcutaneous pen (Humalog KwikPen mL (U-100) Insulin) insulin glargine 100 unit/mL (3 24 unit (0.24 mL) subcut QPM #15 mL 02/28/21 mL) subcutaneous pen (Lantus Solostar U-100 Insulin) gabapentin 100 mg capsule 200 mg (2 x 100 mg) PO BEDTIME #60 05/23/21 caps prednisone 20 mg tablet 40 mg (2 x 20 mg) PO DAILY 5 days 07/10/23 #10 tabs valacyclovir 1 gram tablet 1,000 mg PO TID 7 days #21 tabs 07/10/23 (Valtrex) semaglutide 2 mg/dose (8 mg/3 mL) 2 mg (0.75 mL) subcut QWEEK #3 mL 08/11/23 subcutaneous pen injector (Ozempic) acetaminophen 650 mg 650 mg PO Q8H PRN pain #20 tabs 09/15/24 tablet,extended release methocarbamol 750 mg tablet 750 mg PO Q8H PRN pain, moderate 01/23/25 #10 tabs Allergies Allergy/AdvReac Type Severity Reaction Status Date / Time iodine (IODINE) Allergy Intermediate PT UNSURE Verified 01/23/25 18:36 latex (LATEX) Allergy Intermediate RASH Verified 01/23/25 18:36 ketorolac Allergy Unknown Unknown Verified 01/23/25 18:36 oxycodone Allergy Unknown Unknown Verified 01/23/25 18:36 From TORADOL Allergy Unknown STOMACH Uncoded 01/23/25 18:36 UPSET Review of Systems Review of Systems: Yes all other systems are reviewed and are negative Constitutional: Constitutional: Denies fatigue and Denies fever(s) ENT: Reports neck pain Gastrointestinal: Gastrointestinal: Denies abdominal pain, Denies nausea and Denies vomiting Musculoskeletal: Musculoskeletal: Reports arthralgias, Denies joint swelling and Reports neck pain Endocrine: Endocrine: Denies fatigue PMFSH Past Medical History Attestation statement: The following information was validated with the patient. 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 Diabetes HLD (hyperlipidemia) HTN (hypertension) History of [place] (myocardial infarction) (~04/2013) CAD (coronary artery disease) Surgical History S/P CABG (coronary artery bypass graft) Hx of cataract surgery Hx of tonsillectomy Hx of appendectomy Hx of cardiac cath (~11/2019) Family History Family History Father Diabetes Emphysema/COPD Mother CVD (cardiovascular disease) HTN (hypertension) Brother Diabetes Daughter Diabetes Social History Social History Household Members: Family Household Members Other:: grandson Alcohol intake: never Patient Tobacco Use Status: Never used Tobacco Smoked in Last 30 Days: No Use of substances other than those prescribed or required for medical reasons: No Advance Directives: No Advance Directives Information Provided: Yes Do you have a plan to hurt others: No Plan Patient : No Physical Exam ED Vital Signs: Vital Signs - 24 hr 01/23/25 18:32 01/23/25 19:55 Temperature 97.7 F 97.5 F Pulse Rate 93 81 Respiratory Rate 14 19 Blood Pressure 117/71 137/73 Pulse Oximetry 95 93 Oxygen Delivery Method Room Air Room Air BMI result Body Mass Index 25.4 Const Other: Alert Orientation/consciousness: patient oriented x3 Neck Neck: Yes full ROM Resp Effort & Inspection: normal respiratory effort Cardio Other: Normal peripheral perfusion Skin Other: Warm dry no rash Neuro Other: Antalgic gait General: patient oriented x3, no focal motor deficits and CN's II-XI intact bilaterally Psych Other: Hostile, belligerent Course Reevaluation(s) Reevaluation #1: Upon my initial assessment, I was attempting to relay information to the patient in regard to the shoulder x-ray which was negative, she interrupted multiple times, demanding that I fix the TV. I expressed to the patient that I do not have the capability to fix her TV, apparently the sound is not working. She has been complaining to numerous staff members, she states that she does not care for this facility, that she should have gone to [facility]. Reevaluation #2: Patient continues to complain, stating that no one is updating her, the no one has medicated her, the no one we will fix the TV. Medications Administered Discontinued Medications Generic Name Dose Route Start Last Admin Trade Name Renea PRN Reason Stop Dose Admin Methocarbamol 1,500 mg 01/23/25 20:19 01/23/25 20:28 Methocarbamol 750 Mg Tablet PO 01/23/25 20:20 1,500 mg ONCE ONE Administration Medical Decision Making Medical Decision Making [facility] Narrative: 64-year-old female with a history of hypertension, hyperlipidemia, diabetes, coronary artery disease status post cardiac catheterization, status post CABG, status post pacemaker, who presents after fall. Patient sustained a witnessed fall, she slipped on the floor, landing on her back, there was no head strike no loss consciousness. Patient complains of right shoulder pain and neck pain. Patient refused C-collar on route. Problem: Coronary artery disease History: Per patient I have considered the following differential diagnoses: Intracranial hemorrhage, cervical spine injury, fracture, dislocation, contusion, strain Plan: Imaging ordered from triage, thus far the x-ray is negative, I have very low suspicion for acute injury of the neck or brain given she is not altered she has no neurologic deficits, she is not actively vomiting, and in regard to the neck, she is moving it freely independently, the pain is lateral. We will be giving methocarbamol for her discomfort, she can not have Toradol, she has an allergy but can not tell me what the allergy is. I have independently reviewed the following tests: CT brain:IMPRESSION: Age-related atrophy with chronic microvascular leukomalacia. No hemorrhage, mass effect, or acute findings identified. CT cervical spine:indings: Vertebral alignment is within normal limits. There is degenerative change. No acute fractures or dislocations. No acute findings on limited view of the intracranial contents. Atherosclerosis calcification of the carotid bulbs Lung apices are clear. IMPRESSION: No acute findings. X-ray shoulder:Findings: Bones intact. No dislocations. No significant loss of joint space or osteophytes. No erosions. No radiopaque foreign body. IMPRESSION: 1. No acute findings Differential Diagnosis Differential Diagnoses: The differential diagnosis associated with the presentation includes See medical decision-making Admission/Observation Consideration of admission/observation: Escalation of care including admission/observation considered Not applicable Radiology Impression Discussion of test interpretation with radiology: I have reviewed the radiologist's reading. Discharge Plan Discharge Clinical Impression: Neck muscle strain, Contusion of right shoulder Patient Disposition: Home, Self-Care Instructions: Cervical Strain (ED), Contusion in Adults (ED) Additional Instructions: The x-ray of the shoulder was negative for fracture or dislocation. The CT scan of the brain and cervical spine were negative for acute injury, you have musculoskeletal strain and contusion. See home care instructions. You can use aqip-chh-wjygxbh Tylenol 1000 mg taken every 8 hours for pain. I also send you with a muscle relaxant, use the methocarbamol as needed for further pain, it may cause drowsiness, you should not drive or operate machinery while taking this medication. Follow up with primary care as needed. Prescriptions: New methocarbamol 750 mg tablet 750 mg PO Q8H PRN (Reason: pain, moderate) Qty: 10 0RF No Action insulin lispro [Humalog KwikPen Insulin] 100 unit/mL insulin pen See Rx Instructions subcut TID Qty: 15 1RF Rx Instructions: 5 units, + 2 units for bg over 200, + 4 units for bg over 300 subcut 3 times a day; Lantus Solostar U-100 Insulin 100 unit/mL (3 mL) insulin pen 24 unit subcut QPM Qty: 15 3RF gabapentin 100 mg capsule 200 mg PO BEDTIME Qty: 60 3RF valacyclovir [Valtrex] 1 gram tablet 1,000 mg PO TID 7 Days Qty: 21 0RF prednisone 20 mg tablet 40 mg PO DAILY 5 Days Qty: 10 0RF acetaminophen 650 mg tablet extended release 650 mg PO Q8H PRN (Reason: pain) Qty: 20 0RF aspirin 81 mg tablet,chewable 1 tab PO DAILY spironolactone 25 mg tablet 25 mg PO DAILY clopidogrel 75 mg tablet 75 mg PO DAILY atorvastatin 80 mg tablet 80 mg PO DAILY metoprolol succinate 50 mg tablet extended release 24 hr 50 mg PO DAILY mirtazapine 30 mg tablet 30 mg PO BEDTIME albuterol sulfate 90 mcg/actuation HFA aerosol inhaler inhalation torsemide 20 mg tablet 20 mg PO ONCE PRN (DME) FreeStyle Kusum 14 Day Sensor Kit See Rx Instructions .ROUTE Q2W Qty: 1 Rx Instructions: As directed (DME) lancets [FreeStyle Lancets] 28 gauge misc See Rx Instructions .ROUTE QID Qty: 100 Rx Instructions: As directed 4 times a day (DME) pen needle, diabetic [Unifine Pentips Plus] 32 gauge x 5/32 needle See Rx Instructions .ROUTE QID Qty: 50 Rx Instructions: As directed alcohol swabs Pads, Medicated 0 pad topical (DME) FreeStyle Lite Strips Strip See Rx Instructions .ROUTE QID Qty: 10 Rx Instructions: As directed 4 times a day (DME) blood-glucose meter [FreeStyle Lite Meter] Kit See Rx Instructions .ROUTE .MEDSUPPLY Qty: 1 Rx Instructions: As directed loratadine [Allergy Relief (loratadine)] 10 mg tablet 10 mg PO DAILY Farxiga 10 mg tablet 10 mg PO DAILY Ozempic 2 mg/dose (8 mg/3 mL) pen injector 2 mg subcut QWEEK Qty: 3 5RF Print Language: Swedish
[2025-01-23 21:14] VITALS: BP 132/80; PULSE 77; RESP 15; TEMP 36.8; O2SAT 99
[2025-01-23 21:22] VITALS: BP 132/80; PULSE 77; RESP 15; TEMP 36.8; O2SAT 99
== END 2025-01-23 21:22 | disposition home or self-care (01) ==
PROVIDERS: Emergency Provider Emergency Medicine; PCP Internal Medicine Medical Oncology
DX: S16.1XXA Strain of muscle, fascia and tendon at neck level, initial encounter (principal); S40.011A Contusion of right shoulder, initial encounter; W01.0XXA Fall on same level from slipping, tripping and stumbling without subsequent striking against object, initial encounter; Y93.9 Activity, unspecified; Y92.9 Unspecified place or not applicable; Y99.9 Unspecified external cause status; M25.511 Pain in right shoulder; M54.2 Cervicalgia; I10 Essential (primary) hypertension; E11.9 Type 2 diabetes mellitus without complications; I25.10 Atherosclerotic heart disease of native coronary artery without angina pectoris; Z95.1 Presence of aortocoronary bypass graft; Z95.0 Presence of cardiac pacemaker; Z79.899 Other long term (current) drug therapy
CPT/HCPCS: 70450; 72125; 73030; 99284

== ENCOUNTER → 2025-01-23 19:12 | Outpatient (BNV) | payer OTHER, SELFPAY | PROVIDERS: PCP Internal Medicine Medical Oncology; Visit Provider Nuclear Medicine | DX: M54.2 Cervicalgia (principal); I67.82 Cerebral ischemia; G31.9 Degenerative disease of nervous system, unspecified; M25.511 Pain in right shoulder; W01.0XXA Fall on same level from slipping, tripping and stumbling without subsequent striking against object, initial encounter | CPT/HCPCS: 70450; 72125; 73030 ==